=== PATIENT | male | born 1950 | race Caucasian/White ===

== ENCOUNTER → 2016-08-20 | Outpatient (CLI) | payer MEDICARE, OTHER ==
[2016-08-20 11:26] LABS: HEMATOCRIT 37.6 % (37.9-51.0); HEMOGLOBIN 13.1 g/dL (13.5-17.0); HGB HCT DIFFERENCE 1.7; MEAN CORPUSCULAR HEMOGLOBIN 30.6 pg (27.0-33.4); MEAN CORPUSCULAR HGB CONC 34.9 g/dL (32.0-36.0); MEAN CORPUSCULAR VOLUME 88 fl (80-97); RED BLOOD COUNT 4.28 10^6/uL (4.35-5.55); RED CELL DISTRIBUTION WIDTH 13.1 % (11.5-14.0); WHITE BLOOD COUNT 6.9 10^3/uL (4.0-10.5)
[2016-08-20 11:46] LABS: ALANINE AMINOTRANSFERASE 25 U/L (21-72); ALBUMIN 4.1 g/dL (3.5-5.0); ALKALINE PHOSPHATASE 56 U/L (38-126); ANION GAP 14 (5-19); ASPARTATE AMINO TRANSFERASE 27 U/L (17-59); BILIRUBIN,DIRECT 0.4 mg/dL (0.0-0.4); BILIRUBIN,TOTAL 0.8 mg/dL (0.2-1.3); BLOOD UREA NITROGEN 15 mg/dL (7-20); CALCIUM 8.9 mg/dL (8.4-10.2); CARBON DIOXIDE 26 mmol/L (22-30); CHLORIDE 103 mmol/L (98-107); CHOLESTEROL 128.68 mg/dL (0-200); CREATININE RESULT 0.68 mg/dL (0.52-1.25); Direct HDL 44 mg/dL (>40); GLUCOSE 87 mg/dL (75-110); SODIUM 143.4 mmol/L (137-145); TOTAL PROTEIN 6.8 g/dL (6.3-8.2); TRIGLYCERIDES 103 mg/dL (<150)
[2016-08-20 11:57] LABS: DIRECT LDL 68 mg/dL (<100)
[2016-08-22 10:13] LABS: TESTOSTERONE FREE (DIRECT) 0.6 pg/mL (6.6-18.1)
== END ==
LOC: OD 10:09
PROVIDERS: ATTEND Family Medicine
DX: E11.65 Type 2 diabetes mellitus with hyperglycemia (principal); E78.5 Hyperlipidemia, unspecified; E66.01 Morbid (severe) obesity due to excess calories; Z68.41 Body mass index [BMI] 40.0-44.9, adult; I25.10 Atherosclerotic heart disease of native coronary artery without angina pectoris; G89.29 Other chronic pain; M51.37 Other intervertebral disc degeneration, lumbosacral region; M72.0 Palmar fascial fibromatosis [Dupuytren]
CPT/HCPCS: 36415; 80053; 80061; 83036; 84402; 84403; 85027

== ENCOUNTER 2016-11-07 19:31 | Emergency (ER) | payer MEDICARE, OTHER ==
[2016-11-07] MEDS ORDERED: HYDROMORPHONE HCL INJ/PF 2 MG/ML AMPULE IM ONE ×2 (21:09→22:50)
--- NOTE | 2016-11-07 21:10 | ER Document Report ---
HPI - HPI Patient complains to provider of: Back pain Onset: Yesterday Onset/Duration: Worse Quality of pain: Sharp Pain Level: 5 Context: Patient reports a history of chronic low back pain for which he takes oxycodone 20 mg 2 tablets 4 times a day. Patient states that occasionally he will have flareups which require him to cover breakthrough pain with Dilaudid. Patient states he ran out of his extra Dilaudid at home. Patient is uncertain of his specific diagnosis regarding his chronic back pain but states that multiple spinal injections from pain management did not help his symptoms. Patient denies any new injury. Patient denies any paresthesia or radiculopathy. Patient denies any urinary retention or incontinence. Patient denies any fever. Patient states pain is typical flares that he has had in the past. Associated Symptoms: Other - Back pain. denies: Fever Exacerbated by: Movement Relieved by: Denies Similar symptoms previously: Yes Recently seen / treated by doctor: No - ROS ROS below otherwise negative: Yes Systems Reviewed and Negative: Yes All other systems reviewed and negative - CONSTITUTIONAL Constitutional: DENIES: Fever - NEURO Neurology: DENIES: Weakness - URINARY Urinary: DENIES: Dysuria, Urgency, Frequency - MUSCULOSKELETAL Musculoskeletal: REPORTS: Extremity pain. DENIES: Back Pain, Neck Pain - DERM Skin Color: Normal Skin Problems: None Past Medical History - General Information source: Patient - Social History Smoking Status: Never Smoker Frequency of alcohol use: None Drug Abuse: None Occupation: none Lives with: Spouse/Significant other Family History: Reviewed & Not Pertinent - Past Medical History Cardiac Medical History: Reports: Hx Heart Attack Endocrine Medical History: Reports: Hx Diabetes Mellitus Type 2 Renal/ Medical History: Denies: Hx Peritoneal Dialysis Musculoskeltal Medical History: Reports Other - chronic back pain Past Surgical History: Reports: Hx Cardiac Surgery - bypass, Hx Coronary Artery Bypass Graft - robotic, Hx Orthopedic Surgery - Bilateral knees Vertical Provider Document - CONSTITUTIONAL Agree With Documented VS: Yes Exam Limitations: No Limitations General Appearance: WD/WN, No Apparent Distress Notes: PHYSICAL EXAMINATION: GENERAL: Well-appearing, well-nourished and in no acute distress. HEAD: Atraumatic, normocephalic. EYES: sclera clear, anicteric, conjunctiva are normal. ENT: nares patent, Moist mucous membranes. NECK: Normal range of motion, supple no lymphadenopathy LUNGS: respirations unlabored HEART: Regular rate and rhythm without murmurs EXTREMITIES: Normal range of motion, no pitting or edema. No cyanosis. Gait normal, pt ambulates without difficulty BACK: lower lumbar midline tenderness, no deformities or step-offs. No CVA tenderness. NEUROLOGICAL: Cranial nerves grossly intact. Normal speech, normal gait. No saddle anesthesia. no foot drop PSYCH: Normal mood, normal affect. SKIN: Warm, Dry, normal turgor, no rashes or lesions noted. - INFECTION CONTROL TRAVEL OUTSIDE OF THE [place] IN LAST 30 DAYS: No - RESPIRATORY O2 Sat by Pulse Oximetry: 95 Course - Re-evaluation Re-evalutation: 11/07/16 22:50 Patient denies any pain relief after her first shot, patient is requesting additional pain medication. 11/08/16 00:[address] valerio regarding pt presentation and pt intent to leave and drive self home after he told provider and nursing staff that he would have his daughter drive him home. Dr valerio does not recommend discharging pt home on any pain medications, rather having pt take his home medication as prescribe - Vital Signs Vital signs: Temp Pulse Resp BP Pulse Ox 97.6 F 70 20 146/83 H 95 11/07/16 20:03 11/07/16 20:03 11/07/16 20:03 11/07/16 20:03 11/07/16 20:03 Discharge - Discharge Clinical Impression: Chronic back pain Qualifiers: Back pain location: low back pain Back pain laterality: midline Sciatica presence: without sciatica Qualified Code(s): M54.5 - Low back pain Condition: Stable Disposition: HOME, SELF-CARE Instructions: Pain Medication Injection ([facility]), Chronic Back Pain ([facility]), Ice Packs ([facility]), Warm Packs ([facility]) Additional Instructions: follow up with your primary care provider for a recheck take your pain medications that you have at home as prescribed use over the counter lidocaine patches as directed Referrals: [facility] [Provider Group] - Follow up as needed
[2016-11-07] MEDS ORDERED: LIDOCAINE 5% (700 MG) TRANSDERMAL ADH..PATCH TP ONE (22:50)
[2016-11-08 00:27] VITALS: BP 146/86
== END 2016-11-08 00:27 | disposition home or self-care (01) ==
LOC: ER 19:31
DX: M54.5 Low back pain (principal); M54.9 Dorsalgia, unspecified; Z79.899 Other long term (current) drug therapy
CPT/HCPCS: 99283; 96372; J1170

== ENCOUNTER 2016-11-22 20:01 | Inpatient (IN) | payer MEDICARE, OTHER ==
[2016-11-22] MEDS ORDERED: ACETAMINOPHEN 325 MG TABLET PO ONE (20:15)
[2016-11-22] MEDS ORDERED: CEFTRIAXONE 1 GM/D5W RTU 50 ML IV ONE (20:15)
--- NOTE | 2016-11-22 20:31 | RADIOLOGY REPORT (SQ) ---
EXAM DESCRIPTION: CHEST SINGLE VIEW COMPLETED DATE/TIME: 11/22/2016 8:21 pm REASON FOR STUDY: stroke alert COMPARISON: None. EXAM PARAMETERS: NUMBER OF VIEWS: One view. TECHNIQUE: Single frontal radiographic view of the chest acquired. RADIATION DOSE: NA LIMITATIONS: None. FINDINGS: LUNGS AND PLEURA: No focal opacities, masses or pneumothorax. No pleural effusion. MEDIASTINUM AND HILAR STRUCTURES: No masses. Contour normal. HEART AND VASCULAR STRUCTURES: Heart normal in size. Normal vasculature. BONES: No acute findings. HARDWARE: None in the chest. OTHER: No other significant finding. IMPRESSION: NO ACUTE RADIOGRAPHIC FINDING IN THE CHEST. TECHNICAL DOCUMENTATION: JOB ID: [id number]
--- NOTE | 2016-11-22 20:33 | RADIOLOGY REPORT (SQ) ---
EXAM DESCRIPTION: CT HEAD WITHOUT COMPLETED DATE/TIME: 11/22/2016 8:22 pm REASON FOR STUDY: stroke alert COMPARISON: None. TECHNIQUE: Axial images acquired through the brain without intravenous contrast. Images reviewed wi th bone, brain and subdural windows. Images stored on PACS. All CT scanners at this facility use dose modulation, iterative reconstruction, and/or weight based d osing when appropriate to reduce radiation dose to as low as reasonably achievable (ALARA). [facility]: Dose Right [facility]: CareDose [facility]: Dose Right [facility]: Teradose 4D [facility]: One4All RADIATION DOSE: mGy. LIMITATIONS: None. FINDINGS: VENTRICLES: Normal size and contour. CEREBRUM: No masses. No hemorrhage. No midline shift. Normal randolph/white matter differentiation. N o evidence for acute infarction. CEREBELLUM: No masses. No hemorrhage. No alteration of density. No evidence for acute infarction. EXTRAAXIAL SPACES: No fluid collections. No masses. ORBITS AND GLOBE: No intra- or extraconal masses. Normal contour of globe without masses. CALVARIUM: No fracture. PARANASAL SINUSES: No fluid or mucosal thickening. SOFT TISSUES: No mass or hematoma. OTHER: No other significant finding. IMPRESSION: NORMAL BRAIN CT WITHOUT CONTRAST. TECHNICAL DOCUMENTATION: JOB ID: [id number] Quality ID # [id number]: Final reports with documentation of one or more dose reduction techniques (e.g., Au tomated exposure control, adjustment of the mA and/or kV according to patient size, use of iterative reconstruction technique) 2010 [employer]- All Rights Reserved
--- NOTE | 2016-11-22 20:53 | ER Document Report ---
ED General - General Chief Complaint: Altered Mental Status Stated Complaint: VOMITING,ALTERED MENTAL STATUS Time Seen by Provider: 11/22/16 20:14 Mode of Arrival: Ambulatory Information source: Patient Notes: 66-year-old male presents with complaints of fevers chills confusion shortness of breath of 2 hour duration. Patient denies any pain anywhere TRAVEL OUTSIDE OF THE [place] IN LAST 30 DAYS: No - HPI Onset: Just prior to arrival Onset/Duration: Sudden Quality of pain: Achy Severity: Mild Pain Level: Denies Associated symptoms: Fever, Shortness of breath, Weakness Exacerbated by: Denies Relieved by: Denies Similar symptoms previously: No Recently seen / treated by doctor: No - Related Data Allergies/Adverse Reactions: No Known Allergies Allergy (Verified 11/22/16 20:06) Past Medical History - Social History Smoking Status: Never Smoker Cigarette use (# per day): No Chew tobacco use (# tins/day): No Smoking Education Provided: No Family History: Reviewed & Not Pertinent - Past Medical History Cardiac Medical History: Reports: Hx Heart Attack Endocrine Medical History: Reports: Hx Diabetes Mellitus Type 2 Renal/ Medical History: Denies: Hx Peritoneal Dialysis Past Surgical History: Reports: Hx Cardiac Surgery - bypass, Hx Coronary Artery Bypass Graft - robotic, Hx Orthopedic Surgery - Bilateral knees Review of Systems - Review of Systems Notes: REVIEW OF SYSTEMS: CONSTITUTIONAL : Admits to fevers and EENT: Denies eye, ear, throat, or mouth pain or symptoms. Denies nasal or sinus congestion or discharge. Denies throat, tongue, or mouth swelling or difficulty swallowing. CARDIOVASCULAR: Denies chest pain. Denies palpitations or racing or irregular heart beat. Denies ankle edema. RESPIRATORY: Shortness of breath GASTROINTESTINAL: Denies abdominal pain or distention. Denies nausea, vomiting , or diarrhea. Denies blood in vomitus, stools, or per rectum. Denies black, tarry stools. Denies constipation. GENITOURINARY: Denies difficulty urinating, painful urination, burning, frequency, blood in urine, or discharge. MUSCULOSKELETAL: Denies back or neck pain or stiffness. Denies joint pain or swelling. SKIN: Denies rash, lesions or sores. HEMATOLOGIC : Denies easy bruising or bleeding. LYMPHATIC: Denies swollen, enlarged glands. NEUROLOGICAL: 2 confusion PSYCHIATRIC: Denies anxiety or stress. Denies depression, suicidal ideation, or homicidal ideation. ALL OTHER SYSTEMS REVIEWED AND NEGATIVE. Dictation was performed using [employer] voice recognition software PHYSICAL EXAMINATION: GENERAL: Well-appearing, well-nourished and in no acute distress. Patient currently on 3 L nasal cannula satting 92% HEAD: Atraumatic, normocephalic. EYES: Pupils equal round and reactive to light, extraocular movements intact, sclera anicteric, conjunctiva are normal. ENT: Nares patent, oropharynx clear without exudates. Moist mucous membranes. NECK: Normal range of motion, supple without lymphadenopathy LUNGS: Tachypnea HEART: Tachycardic ABDOMEN: Soft, nontender, nondistended abdomen. No guarding, no rebound. No masses appreciated. Musculoskeletal: Normal range of motion, no pitting or edema. No cyanosis. NEUROLOGICAL: Cranial nerves grossly intact. Normal speech, normal gait. Normal sensory, motor exams PSYCH: Normal mood, normal affect. SKIN: Warm, Dry, normal turgor, no rashes or lesions noted. Physical Exam - Vital signs Vitals: Temp Pulse Resp BP Pulse Ox 100.6 F H 116 H 16 151/77 H 90 L 11/22/16 20:07 11/22/16 20:07 11/22/16 20:07 11/22/16 20:07 11/22/16 20:07 Course - Re-evaluation Re-evalutation: 11/22/16 20:52 Does become slightly confused during our conversation, he is on oxygen at this time, given that he has fevers chills and hypoxemia I believe he has presumed pneumonia. He is tachycardic tachypneic 11/22/16 20:53 - Vital Signs Vital signs: Temp Pulse Resp BP Pulse Ox 100.6 F H 116 H 19 151/77 H 92 11/22/16 20:07 11/22/16 20:59 11/22/16 21:00 11/22/16 20:59 11/22/16 21:00 - Laboratory Result Diagrams: 11/22/16 20:40 11/22/16 20:40 Laboratory results interpreted by me: 11/22/16 11/22/16 11/22/16 20:29 20:40 20:40 Seg Neutrophils % 88.4 H Lymphocytes % 6.7 L Glucose 212 H POC Glucose 196 H Lactic Acid Total Bilirubin 2.9 H Direct Bilirubin 2.1 H AST 381 H ALT 156 H Urine Glucose (UA) 11/22/16 11/22/16 20:40 20:45 Seg Neutrophils % Lymphocytes % Glucose POC Glucose Lactic Acid 3.1 H Total Bilirubin Direct Bilirubin AST ALT Urine Glucose (UA) >=500 H Critical Care Note - Critical Care Note Total time excluding time spent on procedures (mins): 34 Comments: 34 minutes of critical care time spent in direct contact evaluating and reevaluating the patient, treating symptoms, reviewing labs and studies and speaking with family and consultants excluding any procedures Discharge - Discharge Clinical Impression: Sepsis Qualifiers: Sepsis type: sepsis due to unspecified organism Qualified Code(s): A41.9 - Sepsis, unspecified organism Pneumonia Qualifiers: Pneumonia type: due to unspecified organism Laterality: unspecified laterality Lung location: unspecified part of lung Qualified Code(s): J18.9 - Pneumonia, unspecified organism Condition: Stable Disposition: ADMITTED INPATIENT Admitting Provider: Hospitalist Unit Admitted: Telemetry
[2016-11-22 21:08] LABS: ABSOLUTE LYMPHOCYTES (AUTO) 0.6 10^3/uL (0.5-4.7); ABSOLUTE MONOCYTES (AUTO) 0.3 10^3/uL (0.1-1.4); ABSOLUTE NEUT (AUTO) 7.5 10^3/uL (1.7-8.2); BASOPHILS % (AUTO) 0.5 % (0-2); EOSINOPHILS % (AUTO) 0.6 % (0-6); HEMATOCRIT 45.4 % (37.9-51.0); HEMOGLOBIN 15.2 g/dL (13.5-17.0); HGB HCT DIFFERENCE 0.2; LYMPHOCYTES % (AUTO) 6.7 % (13-45); MEAN CORPUSCULAR HEMOGLOBIN 30.3 pg (27.0-33.4); MEAN CORPUSCULAR HGB CONC 33.6 g/dL (32.0-36.0); MEAN CORPUSCULAR VOLUME 90 fl (80-97); MONOCYTES % (AUTO) 3.8 % (3-13); RED BLOOD COUNT 5.04 10^6/uL (4.35-5.55); RED CELL DISTRIBUTION WIDTH 13.5 % (11.5-14.0); SEGMENTED NEUTROPHILS % (AUTO) 88.4 % (42-78); WHITE BLOOD COUNT 8.4 10^3/uL (4.0-10.5)
[2016-11-22 21:12] LABS: VENOUS BLOOD BASE EXCESS -0.6 mmol/L; VENOUS BLOOD HCO3 24.6 mmol/L (20-32); VENOUS BLOOD PCO2 42.4 mmHg (35-63); VENOUS BLOOD PH 7.38 (7.30-7.42)
[2016-11-22 21:29] LABS: APPEARANCE,URINE SLIGHTLY-CLOUDY; BILIRUBIN,URINE NEGATIVE (NEGATIVE); GLUCOSE, URINE >=500 mg/dL (NEGATIVE); KETONES,URINE NEGATIVE (NEGATIVE); LEUKOCYTE ESTERASE,URINE NEGATIVE (NEGATIVE); NITRITE,URINE NEGATIVE (NEGATIVE); PROTEIN,URINE NEGATIVE (NEGATIVE); URINE SPECIFIC GRAVITY 1.033; UROBILINOGEN,URINE NEGATIVE mg/dL (<2.0)
[2016-11-22 21:33] LABS: ALANINE AMINOTRANSFERASE 156 U/L (21-72); ALBUMIN 4.6 g/dL (3.5-5.0); ALKALINE PHOSPHATASE 123 U/L (38-126); ANION GAP 17 (5-19); ASPARTATE AMINO TRANSFERASE 381 U/L (17-59); BILIRUBIN,DIRECT 2.1 mg/dL (0.0-0.4); BILIRUBIN,TOTAL 2.9 mg/dL (0.2-1.3); BLOOD UREA NITROGEN 13 mg/dL (7-20); CALCIUM 9.5 mg/dL (8.4-10.2); CARBON DIOXIDE 24 mmol/L (22-30); CHLORIDE 99 mmol/L (98-107); CREATININE RESULT 0.76 mg/dL (0.52-1.25); GLUCOSE 212 mg/dL (75-110); POTASSIUM 3.7 mmol/L (3.6-5.0); PROTHROMBIN TIME 13.1 SEC (11.4-15.4); SODIUM 139.8 mmol/L (137-145)
[2016-11-22] MEDS ORDERED: OXYCODONE HCL SR 10 MG TABLET PO ONE (21:39)
[2016-11-22 21:47] LABS: RBC,URINE RARE /HPF
--- NOTE | 2016-11-22 22:16 | EKG REPORT ---
SEVERITY:- ABNORMAL ECG - SINUS TACHYCARDIA LEFT AXIS DEVIATION BORDERLINE R WAVE PROGRESSION, ANTERIOR LEADS NONSPECIFIC T ABNORMALITIES, ANT-LAT LEADS : Confirmed by: Almita Tavarez 22-Nov-2016 22:15:27
[2016-11-22] MEDS ORDERED: DEXTROSE 40% GEL 15 GM TUBE PO PRN ×2 (22:21)
[2016-11-22] MEDS ORDERED: INSULIN LISPRO 100 UNIT/ML 3 ML VIAL SUBCUT PRN (22:21)
[2016-11-22] MEDS ORDERED: DEXTROSE 50%-WATER 25 GM/50 ML DISP.SYRIN IV PRN ×2 (22:21)
[2016-11-22] MEDS ORDERED: GLUCAGON,HUMAN RECOMB 1 MG INJ IM PRN (22:21)
[2016-11-22] MEDS ORDERED: INSULIN GLARGINE,HUM.REC.ANLOG 1,000 UNIT/10 ML UNIT SUBCUT ONE (22:45)
[2016-11-22] MEDS ORDERED: LEVOFLOXACIN 750 MG/D5W RTU 750 MG/150 ML RTUPB IV ONE (23:00)
[2016-11-23] MEDS ORDERED: LEVOFLOXACIN 750 MG/D5W RTU 750 MG/150 ML RTUPB IV ONE (00:51)
[2016-11-23] MEDS ORDERED: LACTULOSE SYRUP 20 GM/30 ML UDCUP PO ONE (00:52)
[2016-11-23] MEDS ORDERED: METRONIDAZOLE 500 MG TABLET PO ONE (01:00)
[2016-11-23] MEDS ORDERED: OXYCODONE HCL IR 5 MG TABLET PO ONE (01:00)
[2016-11-23] MEDS: IPRATROPIUM/ALBUTEROL 0.5-2.5 MG/3 ML AMPUL NEB SCH ×2 (02:28→07:59)
--- NOTE | 2016-11-23 02:44 | RADIOLOGY REPORT (SQ) ---
EXAM DESCRIPTION: ABDOMEN 2 VIEWS COMPLETED DATE/TIME: 11/23/2016 2:18 am REASON FOR STUDY: LLQ pain and fever COMPARISON: None. NUMBER OF VIEWS: Two views. TECHNIQUE: Supine and erect/decubitus radiographic images of the abdomen acquired. LIMITATIONS: None. FINDINGS: FREE AIR: None. LUNG BASES: Clear. BOWEL GAS PATTERN: Nonobstructive pattern. No dilated loops. Moderate amount of stool in the colon. CALCIFICATIONS: No suspicious calcifications. SOFT TISSUES: No gross mass or suggestion of organomegaly. HARDWARE: None in the abdomen. BONES: Degenerative changes in the spine. IMPRESSION: Nonobstructive bowel gas pattern. Moderate amount of stool in the colon. TECHNICAL DOCUMENTATION: JOB ID: [id number] [place]-[employer] 2010 [employer]- All Rights Reserved
--- NOTE | 2016-11-23 03:56 | PDOC H&P ---
History of Present Illness Admission Date/PCP: 11/22/16 22:21 Patient complains of: Abdominal pain History of Present Illness: CAYETANO SCHMITT is a 66 year old male with a past medical history of coronary artery disease insulin-dependent diabetes, hypertension, dyslipidemia, GERD and opiate dependent chronic low back pain with chronic constipation. Who presents to the emergency room with abdominal pain shortness of breath found to have O2 saturations of 88% and initially felt to have bronchitis versus early pneumonia. He denies sinus or facial pain, sore throat wheeze or cough. He is found to have abnormal LFTs and elevation of his lactic acid he is referred to the hospital for admission. The patient denies recent change in medication but has been significantly constipated for at least a week. Past Medical History Cardiac Medical History: Reports: Myocardial Infarction Pulmonary Medical History: Reports: Chronic Obstructive Pulmonary Disease (COPD) Endocrine Medical History: Reports: Diabetes Mellitus Type 2 GI Medical History: Reports: Gastroesophageal Reflux Disease, Other - Chronic constipation Musculoskeltal Medical History: Reports: Other - Chronic low back pain opiate dependence Psychiatric Medical History: Denies: Depression Past Surgical History Past Surgical History: Reports: Coronary Artery Bypass Graft - robotic, Orthopedic Surgery - Bilateral knees Social History Information Source: Patient, [facility] Records Smoking Status: Never Smoker Frequency of Alcohol Use: None Hx Recreational Drug Use: No Drugs: None Hx Prescription Drug Abuse: No Family History Family History: CAD, COPD, Hypertension Parental Family History Reviewed: Yes Children Family History Reviewed: Yes Sibling(s) Family History Reviewed.: Yes Medication/Allergy Home Medications: Aspirin [Aspirin 81 mg Chewable Tablet] 81 mg PO DAILY 01/11/16 Atorvastatin Calcium [Lipitor 10 mg Tablet] 10 mg PO DAILY 01/11/16 Canagliflozin/Metformin HCl [Invokamet 150-1,000 mg Tablet] 150 mg PO Q12 Clopidogrel Bisulfate [Plavix 75 mg Tablet] 75 mg PO DAILY 01/11/16 Glimepiride 1 mg PO Q12 01/11/16 Hydromorphone HCl 2 mg PO PRN PRN 01/11/16 Insulin Detemir [Levemir Flextouch] 80 units DAILY 01/11/16 Isosorbide Mononitrate [Isosorbide Mononitrate ER] 30 mg PO QPM 01/11/16 Meloxicam [Mobic 15 mg Tablet] 15 mg PO DAILY 01/11/16 Metoprolol Succinate 25 mg PO DAILY 01/11/16 Oxycodone HCl [Oxycodone HCl 10 MG Tablet] 10 mg PO Q6 01/11/16 Oxycodone HCl [Oxycontin Sr 10 mg Tablet] 30 mg PO Q6 01/11/16 Pantoprazole Sodium [Protonix] 40 mg PO DAILY 01/11/16 Allergies/Adverse Reactions: No Known Allergies Allergy (Verified 11/22/16 20:06) Review of Systems Constitutional: PRESENT: as per HPI, anorexia. ABSENT: chills, fatigue, weakness Eyes: ABSENT: visual disturbances Ears: ABSENT: hearing changes Cardiovascular: ABSENT: chest pain, dyspnea on exertion, edema, orthropnea, palpitations Respiratory: ABSENT: cough, hemoptysis Gastrointestinal: PRESENT: abdominal pain, bloating, constipation, heartburn. ABSENT: coffee ground emesis, diarrhea, dysphagia Genitourinary: ABSENT: dysuria, hematuria Musculoskeletal: ABSENT: joint swelling Integumentary: ABSENT: rash, wounds Neurological: ABSENT: abnormal gait, abnormal speech, confusion, dizziness, focal weakness, syncope Psychiatric: ABSENT: anxiety, depression, homidical ideation, suicidal ideation Endocrine: ABSENT: cold intolerance, heat intolerance, polydipsia, polyuria Hematologic/Lymphatic: ABSENT: easy bleeding, easy bruising Physical Exam Vital Signs: Temp Pulse Resp BP Pulse Ox 99.2 F 96 18 126/75 H 96 11/22/16 23:16 11/23/16 02:30 11/23/16 02:30 11/22/16 23:16 11/22/16 23:16 Intake & Output 11/21/16 11/22/16 11/23/16 11:59 11:59 11:59 Weight 127.6 kg General appearance: PRESENT: cooperative, mild distress, morbidly obese Head exam: PRESENT: atraumatic Eye exam: PRESENT: conjunctiva pink, EOMI, PERRLA. ABSENT: scleral icterus Ear exam: PRESENT: normal external ear exam Mouth exam: PRESENT: moist, tongue midline Neck exam: ABSENT: carotid bruit, JVD, lymphadenopathy, thyromegaly Respiratory exam: PRESENT: clear to auscultation debra. ABSENT: rales, rhonchi, wheezes Cardiovascular exam: PRESENT: RRR. ABSENT: diastolic murmur, rubs, systolic murmur Pulses: PRESENT: normal dorsalis pedis pul Vascular exam: PRESENT: normal capillary refill GI/Abdominal exam: PRESENT: distended, firm, hypoactive bowel sounds, tenderness - Of the left lower quadrant. ABSENT: guarding, Jacinto's sign, normal bowel sounds Rectal exam: PRESENT: deferred Extremities exam: PRESENT: full ROM. ABSENT: calf tenderness, clubbing, pedal edema Neurological exam: PRESENT: alert, awake, oriented to person, oriented to place , oriented to time, oriented to situation, CN II-XII grossly intact. ABSENT: motor sensory deficit Psychiatric exam: PRESENT: appropriate affect, normal mood. ABSENT: homicidal ideation, suicidal ideation Skin exam: PRESENT: dry, intact, warm. ABSENT: cyanosis, rash Results Laboratory Results: 11/23/16 01:14 Lactic Acid 1.8 Impressions: Chest X-Ray 11/22/16 00:00 IMPRESSION: NO ACUTE RADIOGRAPHIC FINDING IN THE CHEST. Head CT 11/22/16 00:00 IMPRESSION: NORMAL BRAIN CT WITHOUT CONTRAST. Abdomen X-Ray 11/23/16 00:51 IMPRESSION: Nonobstructive bowel gas pattern. Moderate amount of stool in the colon. Assessment & Plan - Diagnosis (1) Abdominal pain Is this a current diagnosis for this admission?: YesPlan: Secondary to severe constipation and likely diverticulitis comp gated by past medical history. Empiric antibiotics, symptomatic management, enema and lactulose reevaluate CBC (2) Diverticulitis Is this a current diagnosis for this admission?: YesPlan: N.p.o., lactulose, enema, symptomatic management Flagyl and Cipro reevaluate CBC (3) Constipation Is this a current diagnosis for this admission?: YesPlan: Bowel regiment for opiate dependence. (4) Abnormal LFTs Is this a current diagnosis for this admission?: YesPlan: Unclear chronicity will obtain hepatitis profile - Time Time Spent: 50 to 70 Minutes - Inpatient Certification Medical Necessity: Need Close Monitoring Due to Risk of Patient Decompensation
[2016-11-23 05:12] LABS: HEMATOCRIT 43.9 % (37.9-51.0); HEMOGLOBIN 14.5 g/dL (13.5-17.0); HGB HCT DIFFERENCE -0.4; MEAN CORPUSCULAR HEMOGLOBIN 29.9 pg (27.0-33.4); MEAN CORPUSCULAR HGB CONC 32.9 g/dL (32.0-36.0); MEAN CORPUSCULAR VOLUME 91 fl (80-97); RED BLOOD COUNT 4.84 10^6/uL (4.35-5.55); RED CELL DISTRIBUTION WIDTH 13.3 % (11.5-14.0); WHITE BLOOD COUNT 13.1 10^3/uL (4.0-10.5)
[2016-11-23 05:21] LABS: ANION GAP 17 (5-19); BLOOD UREA NITROGEN 13 mg/dL (7-20); CALCIUM 9.1 mg/dL (8.4-10.2); CARBON DIOXIDE 25 mmol/L (22-30); CHLORIDE 98 mmol/L (98-107); CREATININE RESULT 0.82 mg/dL (0.52-1.25); GLUCOSE 205 mg/dL (75-110); POTASSIUM 4.1 mmol/L (3.6-5.0); SODIUM 140.3 mmol/L (137-145)
[2016-11-23 05:45] LABS: BASOPHILS % (MANUAL) 0 % (0-2); EOSINOPHILS % (MANUAL) 0 % (0-6); LYMPHOCYTES % (MANUAL) 1 % (13-45); TOTAL CELLS COUNTED 100
[2016-11-23 05:47] LABS: BAND NEUTROPHILS % (MANUAL) 13 % (3-5); OVALOCYTES SLIGHT; PLATELET CLUMPS PRESENT; POIKILOCYTOSIS SLIGHT
[2016-11-23] MEDS ORDERED: METRONIDAZOLE 500 MG TABLET PO SCH (06:00)
[2016-11-23] MEDS: HEPARIN SOD (PORCINE) 5,000 UNIT/ML 1 ML SYRINGE SUBCUT SCH ×3 (06:00→22:06)
[2016-11-23] MEDS: LANSOPRAZOLE 30 MG TAB.RAP.DR PO SCH (08:32)
[2016-11-23] MEDS: ASPIRIN 81 MG TABLET, CHEWABLE PO SCH (09:08)
[2016-11-23] MEDS: METOPROLOL SUCCINATE 25 MG TAB.SR.24H PO SCH (09:09)
[2016-11-23] MEDS: GUAIFENESIN 600 MG TABLET.SA PO SCH ×2 (09:10→22:06)
[2016-11-23] MEDS ORDERED: OXYCODONE HCL SR 10 MG TABLET PO SCH (10:00)
[2016-11-23] MEDS ORDERED: ATORVASTATIN CALCIUM 10 MG TABLET PO SCH (10:00)
[2016-11-23] MEDS ORDERED: CLOPIDOGREL BISULFATE 75 MG TABLET PO SCH (10:00)
[2016-11-23] MEDS ORDERED: (PENDING PHARMACY ID) (Oxycodone Hcl [Oxycodone Hcl 10 Mg Tablet] 20 MG) PO PRN (11:19)
[2016-11-23] MEDS ORDERED: (PENDING PHARMACY ID) (Temazepam [Temazepam] 30 MG) PO PRN (11:19)
[2016-11-23] MEDS ORDERED: OXYCODONE HCL IR 5 MG TABLET PO PRN (11:29)
[2016-11-23] MEDS ORDERED: KETOROLAC TROMETHAMINE INJ/PF 30 MG/1 ML SDV IV PRN (11:32)
--- NOTE | 2016-11-23 11:32 | Progress Note ---
Provider Note Provider Note: IMANI MONTEIRO Search Criteria: Last Name 'Imani' and First Name 'Keny' and = '' and Request Period = '05/27/16' to '11/23/16' - 1 out of 1 Recipients Selected. Fill Date Product, Str, Form Qty Days Pt ID Prescriber Written RX# N/R* Pharm MED+ ------ ---- --------- --- ------- ----- --------- ------ 11/03/2016 OXYCODONE HCL 20 MG TABLET 180.00 30 [id number] 11/03/2016 [id number] R [id number] 180.0 10/10/2016 TEMAZEPAM 30 MG CAPSULE 30.00 30 [id number] 07/07/2016 [id number] R [id number] 00.0 10/04/2016 OXYCODONE HCL 20 MG TABLET 240.00 40 [id number] 09/05/2016 [id number] R [id number] 180.0 10/04/2016 OXYCODONE HCL 20 MG TABLET 240.00 30 [id number] 09/05/2016 [id number] R [id number] 240.0 09/13/2016 TEMAZEPAM 30 MG CAPSULE 30.00 30 [id number] 07/07/2016 [id number] R [id number] 00.0 08/12/2016 OXYCODONE HCL 10 MG TABLET 150.00 11 [id number] 06/06/2016 [id number] N [id number] 204.6 08/09/2016 OXYCONTIN 30 MG TABLET 120.00 30 [id number] 06/06/2016 [id number] N [id number] 180.0 08/08/2016 TEMAZEPAM 30 MG CAPSULE 30.00 30 [id number] 07/07/2016 [id number] R [id number] 00.0 07/15/2016 OXYCODONE HCL 10 MG TABLET 150.00 19 [id number] 06/06/2016 [id number] N [id number] 118.4 07/15/2016 OXYCONTIN 30 MG TABLET 120.00 30 [id number] 06/06/2016 [id number] N [id number] 180.0 07/07/2016 TEMAZEPAM 30 MG CAPSULE 30.00 30 [id number] 07/07/2016 [id number] N [id number] 00.0 06/18/2016 OXYCODONE HCL 10 MG TABLET 150.00 30 [id number] 06/06/2016 [id number] N [id number] 75.0 06/18/2016 HYDROMORPHONE 2 MG TABLET 12.00 3 [id number] 06/06/2016 [id number] N [id number] 32.0 06/18/2016 OXYCONTIN 30 MG TABLET 120.00 30 [id number] 06/06/2016 [id number] N [id number] 180.0 06/03/2016 TEMAZEPAM 30 MG CAPSULE 30.00 30 [id number] 05/28/2016 [id number] N [id number] 00.0 [id number] LEIGHTON GARCIA JR; [facility], [address] [place] [address], [id number] [id number] DEQUAN RIOS MD; [facility], [address] [place] [address] , [id number] [id number]
--- NOTE | 2016-11-23 12:08 | PROGRESS NOTE E ---
Progress Note NAME: CAYETANO SCHMITT : 1950 AGE: 66Y DATE: 11/23/2016 ROOM: [facility] SUBJECTIVE: The patient is lying in bed. He states he is having a great deal of back pain as well as a headache. He denies any shortness of breath, dizziness, or chest pain. He does admit to some nausea and vomiting, and overall states that he does not feel well. The patient has been afebrile. His blood pressures have been in a good range. The patient does not voice any other concerns at this time. REVIEW OF SYSTEMS: Rest of the review of systems negative. MEDICATIONS: Have been reviewed. PHYSICAL EXAMINATION: GENERAL: The patient is a 66-year-old male who is awake, alert, and oriented to person, place, time, and situation. He is verbal, conversational, and does not appear to be in any acute distress. VITAL SIGNS: Temperature 98.1, pulse 93, respirations 20, blood pressure 144/69, oxygen saturation is 97% on room air. SKIN: Warm and dry. No rash. Not diaphoretic. HEENT: Pupils equal, round, reactive to light and accommodation. Conjunctivae are pink. No JVP. CARDIOVASCULAR: Heart is regular with no murmur or rub. CHEST: Clear, symmetrical, unlabored. ABDOMEN: Mildly distended. No area of focal tenderness. Bowel sounds are present. BACK: No CVA tenderness or sacral edema. EXTREMITIES: No clubbing, cyanosis, or edema. PSYCHIATRIC: Appropriate affect. Pleasant mood. DIAGNOSTICS: Lab values are as follows: Hematology obtained on 11/23/2016: WBCs are 13.1, hemoglobin is 14.5, hematocrit is 43.9, platelet count is 148,000. Chemistry obtained on 11/23/2106: Sodium is 140, potassium 4.1, chloride is 98, carbon dioxide 25, BUN 13, creatinine is 0.82, glucose 205, calcium is 9.1. IMPRESSION AND PLAN: 1. SEPSIS PRESENT ON ADMISSION EVIDENCED BY THE PATIENT'S WHITE COUNT, BANDEMIA, TACHYCARDIA. Uncertain of exact etiology of this but given the patient's elevation in LFTs, will obtain complete abdominal ultrasound and also given his flank pain, will also add lipase. The patient appears to have a positive blood culture of gram negative rods as well. 2. BACTEREMIA. Will continue IV antibiotic coverage for now and will repeat blood cultures in the next 24 hours. 3. ABNORMAL LFTS. This is very acute as the patient's LFTs were normal in July. Will obtain ultrasound and hold hepatotoxic medications for now. 4. DIABETES MELLITUS TYPE 2. Will continue sliding scale coverage. 5. CORONARY ARTERY DISEASE. Will continue the patient's home medications for now. 6. GASTROESOPHAGEAL REFLUX DISEASE. Will continue PPI therapy. 7. CHRONIC BACK PAIN. Will continue home medications. 8. OPIATE DEPENDENCY. Will continue home medications. Will add Toradol for breakthrough pain. DISPOSITION: The patient is a FULL CODE. Pending patient's symptomatology and diagnostic findings, will reevaluate in the a.m. Time spent on this followup including assessment, plan, physical examination, and patient education is 40 minutes. DICTATING PHYSICIAN: JORDIN ROMAN NP [id number] PHY#: [id number] ID: [id number] JOB#: [id number] ACCT: [id number] cc: >
[2016-11-23] MEDS ORDERED: KETOROLAC TROMETHAMINE INJ/PF 30 MG/1 ML SDV IV ONE (12:30)
[2016-11-23] MEDS: AMPICILLIN SODIUM/SULBACTAM NA 3 GM in NORMAL SALINE 100 ML IV SCH ×2 (16:18→20:50)
[2016-11-23] MEDS: ISOSORBIDE MONONITRATE 30 MG TAB.ER.24H PO SCH (18:12)
[2016-11-23] MEDS: OXYCODONE HCL IR 5 MG TABLET PO PRN (18:24)
--- NOTE | 2016-11-23 18:36 | RADIOLOGY REPORT (SQ) ---
EXAM DESCRIPTION: U/S ABDOMEN COMPLETE W/O DOP COMPLETED DATE/TIME: 11/23/2016 5:42 pm REASON FOR STUDY: Acute elevated LFTs, infeciton, flank pain COMPARISON: None. TECHNIQUE: Dynamic and static grayscale images acquired of the abdomen and recorded on PACS. Renate duarte selected color Doppler and spectral images recorded. LIMITATIONS: Study limited due to acoustical interference from fat or from air in the bowel. FINDINGS: PANCREAS: Poorly seen secondary to acoustical interference from fat or from air in the bow el. No visualized masses. Duct normal caliber as seen. LIVER: Echotexture is coarse with increased echogenicity consistent with fatty infiltration. LIVER VASCULATURE: Normal directional flow of the main portal vein and hepatic veins. GALLBLADDER: Sludge. No stones. Normal wall thickness. No pericholecystic fluid. ULTRASOUND-DETECTED SHI'S SIGN: Negative. INTRAHEPATIC DUCTS AND COMMON DUCT: CBD and intrahepatic ducts normal caliber. No filling defects. INFERIOR VENA CAVA: Normal flow. AORTA: No aneurysm. RIGHT KIDNEY: Normal size. Normal echogenicity. No solid or suspicious masses. No hydronephrosis. No calcifications. LEFT KIDNEY: Normal size. Normal echogenicity. No solid or suspicious masses. No hydronephrosis. No calcifications. SPLEEN:13 cm. No masses. PERITONEAL AND PLEURAL SPACES: No ascites or effusions. OTHER: No other significant finding. IMPRESSION: No acute findings. Borderline splenomegaly. No ascites. TECHNICAL DOCUMENTATION: JOB ID: [id number]- All Rights Reserved
[2016-11-23] MEDS: KETOROLAC TROMETHAMINE INJ/PF 30 MG/1 ML SDV IV PRN (20:51)
[2016-11-23] MEDS ORDERED: INSULIN GLARGINE,HUM.REC.ANLOG 1,000 UNIT/10 ML UNIT SUBCUT SCH (22:00)
[2016-11-23] MEDS ORDERED: LEVOFLOXACIN 750 MG/D5W RTU 750 MG/150 ML RTUPB IV SCH (22:00)
[2016-11-23] MEDS ORDERED: INSULIN GLARGINE,HUM.REC.ANLOG 1,000 UNIT/10 ML UNIT SUBCUT ONE (22:29)
[2016-11-23] MEDS: INSULIN GLARGINE,HUM.REC.ANLOG 300 UNIT/3 ML INSULN.PEN SUBCUT SCH (22:38)
[2016-11-23] MEDS: TEMAZEPAM 15 MG CAPSULE PO PRN (23:28)
[2016-11-24] MEDS: AMPICILLIN SODIUM/SULBACTAM NA 3 GM in NORMAL SALINE 100 ML IV SCH ×2 (03:34→08:26)
[2016-11-24] MEDS: HEPARIN SOD (PORCINE) 5,000 UNIT/ML 1 ML SYRINGE SUBCUT SCH (06:10)
[2016-11-24] MEDS ORDERED: LACTULOSE SYRUP 20 GM/30 ML UDCUP PO ONE (06:45)
[2016-11-24] MEDS ORDERED: ONDANSETRON HCL INJ/PF 4 MG/2 ML SDV IV ONE (06:45)
[2016-11-24] MEDS: KETOROLAC TROMETHAMINE INJ/PF 30 MG/1 ML SDV IV PRN (06:46)
[2016-11-24 07:11] LABS: ABSOLUTE EOSINOPHILS # (AUTO) 0.1 10^3/uL (0.0-0.6); ABSOLUTE LYMPHOCYTES (AUTO) 0.3 10^3/uL (0.5-4.7); ABSOLUTE MONOCYTES (AUTO) 0.4 10^3/uL (0.1-1.4); ABSOLUTE NEUT (AUTO) 5.1 10^3/uL (1.7-8.2); BASOPHILS % (AUTO) 0.3 % (0-2); HEMATOCRIT 39.5 % (37.9-51.0); HEMOGLOBIN 13.4 g/dL (13.5-17.0); HGB HCT DIFFERENCE 0.7; LYMPHOCYTES % (AUTO) 5.2 % (13-45); MEAN CORPUSCULAR HEMOGLOBIN 30.1 pg (27.0-33.4); MEAN CORPUSCULAR VOLUME 89 fl (80-97); RED BLOOD COUNT 4.46 10^6/uL (4.35-5.55); RED CELL DISTRIBUTION WIDTH 13.4 % (11.5-14.0); SEGMENTED NEUTROPHILS % (AUTO) 86.5 % (42-78)
[2016-11-24 07:38] LABS: ALANINE AMINOTRANSFERASE 128 U/L (21-72); ALBUMIN 3.4 g/dL (3.5-5.0); ALKALINE PHOSPHATASE 81 U/L (38-126); ANION GAP 12 (5-19); ASPARTATE AMINO TRANSFERASE 132 U/L (17-59); BILIRUBIN,DIRECT 3.5 mg/dL (0.0-0.4); BILIRUBIN,TOTAL 4.5 mg/dL (0.2-1.3); BLOOD UREA NITROGEN 22 mg/dL (7-20); CALCIUM 8.6 mg/dL (8.4-10.2); CARBON DIOXIDE 24 mmol/L (22-30); CHLORIDE 99 mmol/L (98-107); CREATININE RESULT 0.92 mg/dL (0.52-1.25); GLUCOSE 126 mg/dL (75-110); SODIUM 135.1 mmol/L (137-145); TOTAL PROTEIN 6.4 g/dL (6.3-8.2)
[2016-11-24] MEDS: OXYCODONE HCL IR 5 MG TABLET PO PRN ×3 (07:42→22:22)
[2016-11-24] MEDS: LANSOPRAZOLE 30 MG TAB.RAP.DR PO SCH (07:42)
[2016-11-24] MEDS ORDERED: METOPROLOL TARTRATE PF/INJ 5 MG/5 ML SDV IV ONE ×2 (09:11→09:15)
[2016-11-24] MEDS: GUAIFENESIN 600 MG TABLET.SA PO SCH (09:22)
[2016-11-24] MEDS: ASPIRIN 81 MG TABLET, CHEWABLE PO SCH (09:22)
[2016-11-24] MEDS: CLOPIDOGREL BISULFATE 75 MG TABLET PO SCH (09:22)
[2016-11-24] MEDS ORDERED: NORMAL SALINE 1000 ML 1,000 ML IV PRN (09:33)
[2016-11-24] MEDS ORDERED: DILTIAZEM HCL/D5W 125 ML IV PRN (09:56)
--- NOTE | 2016-11-24 11:02 | RADIOLOGY REPORT (SQ) ---
EXAM DESCRIPTION: CT ABD/PELVIS WITH IV ORAL COMPLETED DATE/TIME: 11/24/2016 10:42 am REASON FOR STUDY: Gram negative sepsis, elevated LFT's COMPARISON: CT angio chest 01/11/2016 TECHNIQUE: CT scan of the abdomen and pelvis performed using helical scanning technique with dynamic intravenous contrast injection. No oral contrast. Images reviewed with lung, soft tissue, and bone windows. Reconstructed coronal and sagittal MPR images reviewed. Delayed images for evaluation of the urinary system also acquired. All images stored on PACS. All CT scanners at this facility use dose modulation, iterative reconstruction, and/or weight based d osing when appropriate to reduce radiation dose to as low as reasonably achievable (ALARA). [facility]: Dose Right [facility]: CareDose [facility]: Dose Right [facility]: Teradose 4D [facility]: Lavish Skate CONTRAST TYPE AND DOSE: contrast/concentration: Isovue 370.00 mg/ml; Total Contrast Delivered: 100.0 ml; Total Saline Delivered: 72.0 ml RENAL FUNCTION: Creatinine 0.82 RADIATION DOSE: Up-to-date CT equipment and radiation dose reduction techniques were employed. CTDIv ol: 25.5 - 27.7 mGy. DLP: 2994 mGy-cm.. LIMITATIONS: None. FINDINGS: LOWER CHEST: Calcified granuloma right posterior lung base LIVER: Normal size. No masses or dilated ducts. SPLEEN: Normal size. No focal lesions. PANCREAS: No masses. No significant calcifications. No adjacent inflammation or peripancreatic fluid collections. Pancreatic duct not dilated. GALLBLADDER: Calcified stones without gallbladder wall thickening or pericholecystic fluid. ADRENAL GLANDS: No significant masses or asymmetry. RIGHT KIDNEY AND URETER: No solid masses. No significant calcifications. No hydronephrosis or hyd roureter. LEFT KIDNEY AND URETER: No solid masses. No significant calcifications. No hydronephrosis or hydr oureter. AORTA AND VESSELS: No aneurysm. No dissection. Renal arteries, SMA, celiac without stenosis. RETROPERITONEUM: No retroperitoneal adenopathy, hemorrhage or masses. BOWEL AND PERITONEAL CAVITY: No masses or inflammatory changes. No free fluid or peritoneal masses. APPENDIX: Short segment of normal appendix identified on coronal image 56 PELVIS: No mass or free fluid. Normal bladder. ABDOMINAL WALL: No masses. No hernias. BONES: Degenerative disc changes and facet hypertrophy at L4-5. Transitional anatomy with sacralized L5. OTHER: No other significant finding. IMPRESSION: NO SIGNIFICANT OR ACUTE FINDING IN THE ABDOMEN OR PELVIS ON CT SCAN WITH IV CONTRAST. TECHNICAL DOCUMENTATION: JOB ID: [id number] Quality ID # [id number]: Final reports with documentation of one or more dose reduction techniques (e.g., Au tomated exposure control, adjustment of the mA and/or kV according to patient size, use of iterative reconstruction technique) 2010 [employer]- All Rights Reserved
[2016-11-24] MEDS ORDERED: PANTOPRAZOLE SODIUM 40 MG VIAL IV ONE (11:30)
[2016-11-24] MEDS ORDERED: DILTIAZEM HCL INJ 25 MG/5 ML VIAL IV ONE (11:30)
[2016-11-24 11:35] LABS: APPEARANCE,URINE CLEAR; BILIRUBIN,URINE MODERATE (NEGATIVE); GLUCOSE, URINE 150 mg/dL (NEGATIVE); KETONES,URINE 100 mg/dL (NEGATIVE); NITRITE,URINE NEGATIVE (NEGATIVE); PROTEIN,URINE 100 mg/dL (NEGATIVE); URINE SPECIFIC GRAVITY 1.042
[2016-11-24 11:36] LABS: BACTERIA,URINE TRACE /HPF; LEUKOCYTE ESTERASE,URINE NEGATIVE (NEGATIVE); RBC,URINE 0-1 /HPF; WBC,URINE 0-1 /HPF
[2016-11-24] MEDS: ENOXAPARIN SODIUM INJ 150 MG/1 ML DISP.SYRIN SUBCUT SCH ×2 (12:46→22:20)
[2016-11-24] MEDS: METRONIDAZOLE 500 MG/NS RTU 100 ML IV SCH ×3 (14:25→23:51)
[2016-11-24] MEDS: CIPROFLOXACIN 400 MG/D5W RTU 400 MG/200 ML RTUPB IV SCH (14:26)
--- NOTE | 2016-11-24 15:43 | PROGRESS NOTE E ---
Progress Note NAME: CAYETANO SCHMITT : 1950 AGE: 66Y DATE: 11/24/2016 ROOM: [facility] SUBJECTIVE: The patient is lying in bed. The patient has been seen twice today on rounds. Initially this morning it was noted by the nurse that the patient's heart rate was staying around 150. Upon review of the patient's strips, he did appear to be in atrial fibrillation/atrial flutter at 2:1. The patient was symptomatic for such and was given a bolus dose of Cardizem. With this, the patient did have improvement of his heart rate into the low 100s. However, he did remain in atrial fibrillation. The patient denies any history of irregular heartbeat or atrial fibrillation. The patient denied any nausea, vomiting. No shortness of breath, dizziness. He does admit to some diarrhea but states this is due to the laxatives he took for constipation which is chronic for him. The patient has been afebrile. His blood pressures have been in a good range. He does have good pressure to work with. The patient was transferred to the [facility] for a Cardizem drip, and the patient also underwent a stat CT scan which was essentially unremarkable. The patient does not voice any other concerns at this time. REVIEW OF SYSTEMS: The rest of the review of systems is negative. MEDICATIONS: Medications have been reviewed. OBJECTIVE: GENERAL: The patient is a 66-year-old male who is awake, alert and oriented to person, place, time, and situation. He is verbal, conversational, does not appear to be in any acute distress. VITAL SIGNS: As follows: Temperature is 97.8, pulse 120, respiratory rate 18, blood pressure is 113/72, oxygen saturation 96% on room air. SKIN: Warm and dry. No rash. He is not diaphoretic. HEENT: Pupils equal, round, reactive to light and accommodation. Conjunctiva is pink. NECK: No JVD. CARDIOVASCULAR SYSTEM: Heart is irregularly irregular. There is no murmur or rub. CHEST: Clear, symmetrical, unlabored. ABDOMEN: Soft, nontender, nondistended. BACK: No CVA tenderness, sacral edema. EXTREMITIES: No clubbing, cyanosis, edema. PSYCHIATRIC: Appropriate affect. Pleasant mood. DIAGNOSTICS: Lab values are as follows: Hematology obtained on 11/24/2016; WBCs are 6.0, hemoglobin 13.4, hematocrit is 39.5, platelet count is 111,000. Chemistry obtained on 11/24/2016: Sodium is 135, potassium 4.0, chloride is 99, carbon dioxide 24, BUN 22, creatinine is 0.9, glucose is 126, calcium is 8.6, bilirubin is 4.5, AST 132, ALT is 128, alkaline phosphatase 81, total protein 6.4, albumin 3.4. Blood cultures obtained on 11/22/2016 reveal gram-negative rods. Urine culture obtained on 11/22/2016 reveals no growth. IMPRESSION AND PLAN: 1. GRAM-NEGATIVE OSEAS BACTEREMIA, UNCERTAIN OF THE EXACT ETIOLOGY OF THIS. The patient's CT of the abdomen and pelvis is unremarkable. There is no obvious source. Given the patient's history of chronic constipation and intermittent diarrhea, he does have the suspicion for a diverticular origin. Will continue antibiotic coverage, as the patient's white count has normalized, and follow. 2. SEPSIS SECONDARY TO NUMBER 1. Overall, the patient is improved. 3. ATRIAL FLUTTER. The patient denies any previous history of this. Most likely it was exacerbated by the patient's sepsis process. The patient has been given Cardizem, has been started on a drip, and Cardiology has been consulted. I do appreciate their input with this. 4. ABNORMAL LFTS. This does appear to be acute as these were normal in July. So far, imaging is unremarkable for any abdominal etiology of this. We will continue to hold hepatotoxic medications. This may be due simply to sepsis process. 5. DIABETES MELLITUS TYPE 2. Continue sliding scale coverage. 6. CORONARY ARTERY DISEASE. Will continue the patient's home medications. 7. GASTROESOPHAGEAL REFLUX DISEASE. Will continue PPI therapy. 8. CHRONIC BACK PAIN. Will continue home medication. 9. OPIATE DEPENDENCY. Will continue the patient's home medications. DISPOSITION: The patient is a FULL CODE. Pending patient's symptomatology and diagnostic findings, will re-evaluate in the a.m. Time spent on this followup including assessment, plan, physical examination, patient education, and specialty collaboration is 40 minutes. DICTATING PHYSICIAN: JORDIN ROMAN NP [id number] PHY#: [id number] ID: [id number] JOB#: [id number] ACCT: [id number] cc:JORDIN ROMAN MANUFACTURING DESIGN ENGINEER >
[2016-11-24 17:11] LABS: PATH REVIEW PATHOLOGIST REVIEWED
[2016-11-24] MEDS: ISOSORBIDE MONONITRATE 30 MG TAB.ER.24H PO SCH (18:14)
--- NOTE | 2016-11-24 18:50 | EKG REPORT ---
SEVERITY:- ABNORMAL ECG - A FIB-FLUTTER LEFT AXIS DEVIATION NONSPECIFIC T ABNORMALITIES, ANTERIOR LEADS : Confirmed by: Almita Tavarez 24-Nov-2016 18:50:08
[2016-11-24] MEDS: INSULIN GLARGINE,HUM.REC.ANLOG 300 UNIT/3 ML INSULN.PEN SUBCUT SCH (22:20)
--- NOTE | 2016-11-24 22:54 | CONSULTATION REPORT E ---
Consultation Report NAME: CAYETANO SCHMITT : 1950 AGE: 66Y DATE: 11/24/2016 331 A TO: ELOY DEJESUS M.D. FROM: JAI ISBELL M.D. Requesting Physician REASON FOR CONSULTATION: Patient with new onset of atrial fibrillation with rapid ventricular response. HISTORY OF PRESENT ILLNESS: The patient is a 66-year-old male with known history of coronary artery disease, history of IA, history of coronary artery bypass graft surgery, and history of several stents to the coronary artery and history of insulin-dependent diabetes mellitus type 2, who states that he is on a small dose of MITA inhibitor for his diabetes mellitus and claims no history of hypertension, was admitted on 11/22/2016 with the patient stating that on that day he had uncontrollable rigors and tremors and was shaking all over his body. He states he went to urinate and was confused and stayed there for 15 minutes. Subsequently he also had fever, chills, rigors, the temperature not being recorded. He subsequently started having sharp pains in the epigastric area and came to the emergency room where he seemed to be slightly short of breath, and the O2 saturations were 88%. Initially he was felt to have bronchitis, but the patient denies any chest pain or cough or sputum production. Subsequently the patient had a CT scan which did not show anything except calcified stones in the gallbladder without any evidence of cholecystitis. He was diagnosed as presumed diverticulitis and was treated with antibiotics. This morning, on the telemetry unit he was found to be symptomatic with some fatigue and weakness but without any sensation of palpitations with a heart rate of 155 beats per minute which was atrial fibrillation/flutter with rapid ventricular response. He was given 20 mg of Cardizem and transferred to [facility]. At present the patient seems to be much improved. He denies any chest pain or discomfort. There is no abdominal pain at present. There is no PND, orthopnea, or leg edema. The patient has no clear-cut anginal symptoms. His heart rate is like 108 beats per minute with a blood pressure marginally in the region of 105/65. He is on room air with an O2 saturation of 93%. There is no pedal edema. The patient denies any syncope. There is no prior history of atrial fibrillation. Although per his past medical history, he has a past medical history of palpitations many years ago which were terminated by Valsalva and vagal maneuvers. PAST MEDICAL HISTORY: Positive for: 1. History of myocardial infarction. 2. History of circumflex stent and staged hybrid procedure in the form of robotic minimally invasive direct coronary artery bypass graft surgery with the العلي being placed to the LAD. This was in 2014. He subsequently had a stress test a year later in July/August of 2015 and was advised cardiac catheterization because it showed a large perfusion abnormality laterally and moderate ischemia apically and was thought to have a high risk for recurrent stenosis of the stents or العلي versus *------* lesion, but at that time he was just 2 days from moving into [place], [place], and hence he was advised to get a cardiac catheterization as soon as possible. On 09/24/2015, he had a cardiac catheterization in [facility] wherein he was found to have: The left main was normal. The LAD had a 50% proximal. There was a small D1 with 80% and 50% mid-lesion and 100% mid. The العلي to the LAD was patent to a small distal LAD. The left circumflex gave off a small OM1 with large OM2 with a stent with a 99% in-stent stenosis. The distal vessel is very small with a long 50%. The right coronary artery had a 80% proximal and a 75% mid with a normal PDA and small *------*. He had a 2.5 x 20 mm Euphoria stent placed in the circumflex/obtuse marginal two branch and subsequently also had 2 stents placed to cover the lesion in the right coronary artery. Since then he has not had any anginal symptoms. 3. The patient states in the remote past he has had episodes of palpitations, which his doctor told him that with Valsalva and other vagal maneuvers he used to get rid of them, but they were regular, and this is the first time he is having atrial fibrillation this admission. 4. He denies a history of hypertension. He has no history of sleep apnea. No history of asthma or COPD. 5. There is a history of diabetes mellitus type 2, insulin dependent, without any complications. 6. He has no history of thyroid disease. He has no history of TIA or CVA. No history of anxiety or depression. 7. Abdominal pain as mentioned earlier. There is no prior history of GI bleed at any time. He has a history of GERD. There is no history of peptic ulcer disease. Abdominal pain, as mentioned earlier, is suspected to have diverticulitis, and he also has a gallstone with which he is asymptomatic. There is no history of migraines or seizures. PAST SURGICAL HISTORY: Positive for: 1. Bilateral knee replacements. 2. Prior to that he had left ACL surgery. 3. He also had coronary artery bypass graft surgery. 4. Cardiac catheterization x2 with multiple stent placements. REVIEW OF SYSTEMS: CONSTITUTIONAL: Complains of generalized fatigue and weakness and generalized tremors/rigors with subsequently fever. Abdominal pain. He states that since Thursday the he has been having headaches. There is no prior history of headaches or migraines. No history of head injury. There is no history of amblyopia or diplopia. No history of amaurosis fugax. No history of complications of diabetes mellitus. EARS: No history of hearing loss. No history of tinnitus. No history of recurrent ear infections. NOSE: No history of nosebleeds. No history of hay fever. No history of nasal polyps. MOUTH: No history of altered taste sensation. No history of ulcers in the mouth. No bleeding from the gums. THROAT: No odynophagia or dysphagia. No history of recurrent sore throats. SKIN: No pruritus. No yellowish discoloration of the skin. No history of psoriasis. No history of cancer of the skin. NECK: Denies any C-spine arthritis. No history of goiter. No history of neck pain. LUNGS: No history of asthma or COPD. No history of cough or sputum production. No history of wheezing. No history of pulmonary embolism. No history of sleep apnea. No history of pleuritic chest pain. Note that the patient is a nonsmoker and has never smoked. CARDIAC: Denies history of hypertension. He states that he is on MITA inhibitor for his kidneys since he is a diabetic. He has a history of coronary artery disease, old IA, history of stent placement circumflex and a staged hybrid CABG with a العلي to the LAD, and subsequently he had an abnormal stress test, and in 2015 he had stents placed in the OM2 branch where there was a 99% in-stent restenosis and also had 2 stents placed in the right coronary artery to cover the proximal and middle regions. Since then he has not had any angina. No history of congestive heart failure. No history of PND, orthopnea, or leg edema. This is the first time the patient is in atrial fibrillation. No history of syncope. No history of leg edema. ENDOCRINE: History of diabetes mellitus type 2, insulin dependent. No history of polydipsia or polyuria. No history of heat or cold intolerance. No history of thyroid disease. MUSCULOSKELETAL: History of chronic back pain due to osteoarthritis. The patient is opioid dependent for this. He does not walk much. There is no collagen vascular disease. RENAL: No history of chronic kidney disease. No symptoms of UTI. No history of hematuria, pyuria, or dysuria. METABOLIC: History of hyperlipidemia. History of moderate obesity. No history of gout. GASTROINTESTINAL: History of GERD. No history of fatty food intolerance. No right upper quadrant pain. No history of nausea, vomiting. The patient states he had diarrhea but states that he is usually constipated and takes laxatives, and that is why he has diarrhea. Epigastric sharp pains as mentioned earlier. No history of GI bleed. No history of fatty food intolerance. No history of jaundice. No history of cirrhosis. CENTRAL NERVOUS SYSTEM: No history of TIA or CVA. No history of seizures. History of headaches as mentioned earlier, since Thursday, but no prior history of headaches. The patient states that he was confused for a little while when he had the rigors. This may be because of delirium due to fever which he developed later after the tremors and rigors. No history of sleep apnea. No history of migraines. No seizure disorder. PSYCHIATRIC: No history of anxiety or depression. No history of suicidal ideation. No history of homicidal ideation. VASCULAR: No history of calf or buttock claudication. No history of DVT. HEMATOLOGICAL: No history of bleeding diathesis. No history of clotting disorders. SKIN: There are no skin lesions. There are no petechia or ecchymosis. ALLERGIES: No known allergies. SOCIAL HISTORY: The patient does not smoke. There is no history of EtOH abuse. FAMILY HISTORY: Positive for COPD, hypertension, and coronary artery disease. DISPOSITION: The patient is a FULL CODE. His is his surrogate healthcare decision maker. PHYSICAL EXAMINATION: GENERAL: The patient is moderately obese, at present in no acute distress. He states that he does not feel the palpitations, although when the heart rate was 155, he had a little weakness and some amount of dizziness but no syncope or near syncope. VITAL SIGNS: He is afebrile with a temperature of 98 degrees Fahrenheit. Pulse is 108 beats per minute, irregularly irregular. Blood pressure is 105/65. Respirations are 22 per minute. O2 saturations are 93% on room air. HEAD: Atraumatic/normocephalic. EYES: Pupils are equal, round, regular, reactive to light and accommodation. Extraocular movements are normal. There is no conjunctival pallor. There is no scleral icterus. EARS: Tympanic membranes are intact. External auditory canals are clear. NOSE: There is no deviated nasal septum. There is no inflammation of the nasal mucous membranes. There are no nasal polyps. MOUTH: Mucous membranes of the mouth are moist. Tongue is moist. There are no ulcers. There is no bleeding from the gums. THROAT: There is no redness of the oropharynx. There is no exudate. SKIN: There are no skin rashes. There are no skin lesions. There is no petechia or ecchymosis. NECK: Supple. There is no JVD. Carotids are equal. There is no bruit. There is no lymphadenopathy. There is no goiter. Trachea is central. LUNGS: Clear to auscultation/percussion. There is no chest-wall tenderness. HEART: S1, S2 is heard. S1 is of variable intensity. There is no S3 gallop. There is no S4 gallop. There is a systolic murmur in the left sternal border and the apex. There is no rub. ABDOMEN: Slightly obese, nontender. There is no hepatosplenomegaly. Jacinto's sign is negative. There is no gallbladder tenderness. There is no hepatosplenomegaly. There is no rebound, guarding, or rigidity. Bowel sounds are well heard. EXTREMITIES: Femorals are slightly diminished. There is no femoral bruit. Leg pulses are well felt. There is no DVT or cellulitis. There is no pedal edema. There is no calf tenderness. There is no cyanosis or clubbing. CENTRAL NERVOUS SYSTEM: The patient is conscious, awake, alert, oriented x3, with no focal deficits. PSYCHIATRIC: The patient's judgement and insight are intact. His affect is normal. MEDICATIONS: Include: 1. Aspirin 81 mg p.o. daily. 2. Atorvastatin 10 mg p.o. daily. This has been held due to abnormal liver function tests. 3. Plavix 75 mg p.o. daily. 4. Hypoglycemic precautions with glucose 40% gel, 15 grams p.o. and 30 mg p.o. respectively p.r.n. hypoglycemia. 5. Dextrose 50,000/12.5 grams IV and 25 grams IV p.r.n. hypoglycemia. 6. He did receive Cardizem 20 mg IV. 7. Lovenox 125 mg subcutaneously q.12 h. 8. Glucagon 1 mg IM p.r.n. hypoglycemia. 9. Ciprofloxacin 400 mg IV q.12 h. 10. Metronidazole 500 mg IV q.6 h. 11. Lantus insulin 18 units subcutaneously at bedtime. 12. Accu-Cheks before meals and at bedtime with sliding scale insulin coverage. 13. Isosorbide mononitrate 30 mg p.o. every morning. 14. Ketorolac 30 mg IV q.4 or 6 h. p.r.n. 15. Lansoprazole 30 mg p.o. before breakfast. 16. Metoprolol succinate, that is Toprol XL 25 mg p.o. daily. 17. Oxycodone 40 mg p.o. q.6 h. p.r.n. 18. Pantoprazole 40 mg IV x1. 19. Restoril 30 mg p.o. at bedtime p.r.n. DIAGNOSTIC DATA: His chest x-ray is negative. His abdominal CT is unremarkable except for calcified gallstones without any evidence of cholecystitis. His EKG done on admission on the showed sinus tachycardia, left axis deviation, borderline T-wave progression anterior leads, nonspecific T abnormalities anterolateral leads. His EKG done today shows atrial fibrillation/flutter with a ventricular response of 82 beats per minute, left axis deviation, nonspecific T-wave abnormalities anterior leads. Note that the patient strip's rhythm strips showed that the patient had atrial fibrillation with rapid ventricular response. His white count is 16,000, hemoglobin is 13.5, hematocrit is 39.5, platelet count is 111,000. The patient's sodium is 135, potassium 4.0, chloride is 99, CO2 is 24, the patient's BUN is 22, creatinine 0.92, GFR is greater than 60, his glucose is 126. His calcium is 8.6. His total bilirubin is elevated at 4.5, his direct bilirubin is 3.5, and his AST is elevated at 132, ALT is elevated at 128, and his alkaline phosphatase is 81. His total protein is 6.4. Albumin is 3.4. His hepatitis-A IgM antibody, hepatitis-B antigen, hepatitis-B core IgM antibody, and the hepatitis-C antibody are pending. His Tylenol is less than 10. His ABG showed PT of 13.1, INR is 0.93. IMPRESSION: 1. New-onset atrial fibrillation with rapid ventricular response, at present heart rate seems to be much better with a bolus of IV Cardizem. Would recommend starting the patient on a small dose of Cardizem IV infusion at 2.5 mg per hour. 2. Abdominal pain with fever and rigors, question cause, question diverticulitis. 3. Coronary artery disease, history of IA, history of circumflex stent with a staged hybrid procedure with the patient later having mid-CABG with a العلي to the LAD, subsequently had abnormal stress test and had stents placed and a site of in-stent restenosis in the OM2 branch and also 2 stents in the right coronary artery. 4. Gallstones with no evidence of cholecystitis, and the patient has no symptoms of cholelithiasis. 5. Diabetes mellitus type 2, insulin requiring. 6. GERD. 7. Chronic low back pain. 8. Chronic constipation. RECOMMENDATIONS: As mentioned earlier, continue the patient on Lovenox. The patient's corrected CHADS VASC2 Score is 2, and hence would advise the patient to be on anticoagulation but will have the acute events settle, during which time the patient's Lovenox at 125 mg subcutaneously q.12 h. Will continue hydration. Continue antibiotics. Continue the Cardizem at a small dose and increase as tolerated to 5 mg per hour infusion. Note, the patient is a FULL CODE. His is his surrogate healthcare decision maker. Note, 40 minutes spent on this patient with more than 50% of the time spent on direct patient care. Medications were reviewed and medications were adjusted and added. It is also my recommendation to start the patient on IV Cardizem infusion. Discussed with the other caregiving providers on the case including the attending physician and the nurses on the case. Discussed with the patient, and later the patient's . Once the heart rate comes down, we will get an echocardiogram. Note that this case required highly complex medical decision making due to the patient's atrial fibrillation with rapid ventricular response and underlying coronary artery disease and underlying abdominal pain/question infection and the patient's biliary cause. The patient does have a history of coronary artery disease with multiple stents and a history of minimally invasive direct coronary artery graft placement with a العلي to the LAD. All questions were answered. Will follow with you. Note, 40 minutes spent on the patient. DICTATING PHYSICIAN: ELOY DEJESUS M.D. [id number] PHY#: [id number] ID: [id number] JOB#: [id number] ACCT: [id number] cc:ELOY DEJESUS M.D. >
[2016-11-25] MEDS: CIPROFLOXACIN 400 MG/D5W RTU 400 MG/200 ML RTUPB IV SCH ×2 (00:58→12:37)
[2016-11-25] MEDS: TEMAZEPAM 15 MG CAPSULE PO PRN ×2 (02:17→23:32)
[2016-11-25 05:03] LABS: ABSOLUTE EOSINOPHILS # (AUTO) 0.2 10^3/uL (0.0-0.6); ABSOLUTE LYMPHOCYTES (AUTO) 0.5 10^3/uL (0.5-4.7); ABSOLUTE MONOCYTES (AUTO) 0.3 10^3/uL (0.1-1.4); ABSOLUTE NEUT (AUTO) 2.5 10^3/uL (1.7-8.2); BASOPHILS % (AUTO) 0.6 % (0-2); EOSINOPHILS % (AUTO) 6.1 % (0-6); HEMATOCRIT 36.3 % (37.9-51.0); HEMOGLOBIN 12.6 g/dL (13.5-17.0); HGB HCT DIFFERENCE 1.5; LYMPHOCYTES % (AUTO) 14.8 % (13-45); MEAN CORPUSCULAR HEMOGLOBIN 30.4 pg (27.0-33.4); MEAN CORPUSCULAR HGB CONC 34.7 g/dL (32.0-36.0); MEAN CORPUSCULAR VOLUME 88 fl (80-97); RED BLOOD COUNT 4.15 10^6/uL (4.35-5.55); SEGMENTED NEUTROPHILS % (AUTO) 70.5 % (42-78); WHITE BLOOD COUNT 3.6 10^3/uL (4.0-10.5)
[2016-11-25 05:19] LABS: ALANINE AMINOTRANSFERASE 93 U/L (21-72); ALBUMIN 3.1 g/dL (3.5-5.0); ALKALINE PHOSPHATASE 96 U/L (38-126); ANION GAP 12 (5-19); ASPARTATE AMINO TRANSFERASE 77 U/L (17-59); BILIRUBIN,DIRECT 2.5 mg/dL (0.0-0.4); BILIRUBIN,TOTAL 3.2 mg/dL (0.2-1.3); BLOOD UREA NITROGEN 13 mg/dL (7-20); CALCIUM 8.1 mg/dL (8.4-10.2); CARBON DIOXIDE 25 mmol/L (22-30); CHLORIDE 100 mmol/L (98-107); CREATININE RESULT 0.72 mg/dL (0.52-1.25); GLUCOSE 108 mg/dL (75-110); POTASSIUM 3.2 mmol/L (3.6-5.0); SODIUM 136.5 mmol/L (137-145)
[2016-11-25] MEDS: METRONIDAZOLE 500 MG/NS RTU 100 ML IV SCH ×4 (05:35→23:20)
[2016-11-25] MEDS: OXYCODONE HCL IR 5 MG TABLET PO PRN ×2 (06:00→20:24)
--- NOTE | 2016-11-25 07:51 | EKG REPORT ---
SEVERITY:- ABNORMAL ECG - SINUS RHYTHM NONSPECIFIC INTRAVENTRICULAR CONDUCTION DELAY CONSIDER ANTERIOR INFARCT : Confirmed by: Almita Tavarez 25-Nov-2016 07:50:32
[2016-11-25] MEDS ORDERED: LANSOPRAZOLE 30 MG TAB.RAP.DR PO SCH (08:00)
[2016-11-25] MEDS ORDERED: POTASSIUM CHLORIDE 10 MEQ TABLET.SA PO ONE (09:00)
[2016-11-25] MEDS: ENOXAPARIN SODIUM INJ 150 MG/1 ML DISP.SYRIN SUBCUT SCH (09:54)
[2016-11-25] MEDS: METOPROLOL SUCCINATE 25 MG TAB.SR.24H PO SCH (09:55)
[2016-11-25] MEDS: ASPIRIN 81 MG TABLET, CHEWABLE PO SCH (09:56)
[2016-11-25] MEDS: CLOPIDOGREL BISULFATE 75 MG TABLET PO SCH (09:56)
[2016-11-25] MEDS ORDERED: LISINOPRIL 10 MG TABLET ONE (10:45)
[2016-11-25] MEDS: POTASSIUM CHLORIDE 10 MEQ TABLET.SA PO SCH ×2 (10:48→12:38)
[2016-11-25] MEDS ORDERED: LISINOPRIL 5 MG TABLET PO ONE (11:30)
--- NOTE | 2016-11-25 12:44 | XCELERA REPORT ---
[address] [address] Transthoracic Echocardiogram Report Name: CAYETANO SCHMITT Age: 66 yrs Gender: Male : 1950 Patient Status: Inpatient Patient Location: 3S\S\331\S\A Study Date: 11/25/2016 08:56 AM Height: 71 in Weight: 281 lb BSA: 2.4 m2 Procedure: A two-dimensional transthoracic echocardiogram with color flow and Doppler was performed. Study Quality: Technically suboptimal. Poor endocardial visualisation. Reason For Study: CAD, ATRIAL FIBRILLATION History: CAD, ATRIAL FIBRILLATION. Ordering Physician: DAILY DEJESUS Performed By: Parul Gr Interpretation Summary The left ventricle is normal in size. There is normal left ventricular wall thickness. LV EF is 60% Left ventricular systolic function is normal. Doppler measurements suggest normal left ventricular diastolic function pROBALY NO REGIONAL WALL MOTION ABNORMALITY. The right ventricle is not well visualized secondary to technical limitations The left atrial size is normal. There is mild mitral annular calcification. There is no evidence of mitral valve prolapse. There is no mitral valve stenosis. There is a trace amount of mitral regurgitation There is no aortic valvular vegetation. There is no aortic valve stenosis There is no LVOT obstruction. No aortic regurgitation is present. THERE IS AORTIC SCLEROSIS WITHOUT STENOSIS. There is no tricuspid stenosis. There is a trace amount of tricuspid regurgitation Right ventricular systolic pressure is normal. RVSP is 20 mm of Hg , with RA mean of 5 There is no pericardial effusion. MMode/2D Measurements \T\ Calculations RVDd: 3.2 cm LVIDd: 4.6 cm FS: 34.4 % Ao root diam: 3.1 cm IVSd: 1.1 cm LVIDs: 3.0 cm EDV(Teich): 98.6 ml LVPWd: 1.1 cm ESV(Teich): 36.0 ml Ao root area: 7.4 cm2 EF(Teich): 63.4 % LA dimension: 3.8 cm LVOT diam: 2.3 cm LVOT area: 4.2 cm2 Doppler Measurements \T\ Calculations MV E max tino: MV P1/2t max tino: Ao V2 max: LV V1 max P.6 cm/sec 106.3 cm/sec 106.0 cm/sec 2.6 mmHg MV A max tino: MV P1/2t: 59.7 msec Ao max PG: LV V1 max: 85.4 cm/sec MVA(P1/2t): 3.7 cm2 4.5 mmHg 80.2 cm/sec MV E/A: 1.2 MV dec slope: PERLA(V,D): 3.2 cm2 520.9 cm/sec2 PA V2 max: TR max tino: 65.1 cm/sec 191.0 cm/sec PA max P.7 mmHgTR max P.6 mmHg Left Ventricle The left ventricle is normal in size. There is normal left ventricular wall thickness. LV EF is 60%. Left ventricular systolic function is normal. Doppler measurements suggest normal left ventricular diastolic function. pROBALY NO REGIONAL WALL MOTION ABNORMALITY. There is no thrombus. There is no ventricular septal defect visualized. Right Ventricle The right ventricle is not well visualized secondary to technical limitations. Atria The right atrium is normal. The left atrial size is normal. The interatrial septum is intact with no evidence for an atrial septal defect. Mitral Valve There is mild mitral annular calcification. There is no evidence of mitral valve prolapse. There is no vegetation seen on the mitral valve. There is no mitral valve stenosis. There is a trace amount of mitral regurgitation. Aortic Valve There is no aortic valvular vegetation. There is no aortic valve stenosis. There is no LVOT obstruction. THERE IS AORTIC SCLEROSIS WITHOUT STENOSIS. No aortic regurgitation is present. Tricuspid Valve There is no tricuspid stenosis. There is a trace amount of tricuspid regurgitation. Right ventricular systolic pressure is normal. RVSP is 20 mm of Hg , with RA mean of 5. Pulmonic Valve There is no pulmonic valvular stenosis. There is no pulmonic valvular regurgitation. Great Vessels The aortic root is normal size. Effusions There is no pericardial effusion. : DAILY DEJESUS > Daily Dejesus
[2016-11-25] MEDS ORDERED: ONDANSETRON HCL INJ/PF 4 MG/2 ML SDV IV PRN (14:27)
[2016-11-25] MEDS ORDERED: ONDANSETRON HCL INJ/PF 4 MG/2 ML SDV IV ONE (14:27)
[2016-11-25 15:05] LABS: HEMATOCRIT 40.3 % (37.9-51.0); HEMOGLOBIN 13.5 g/dL (13.5-17.0); HGB HCT DIFFERENCE 0.2; MEAN CORPUSCULAR HGB CONC 33.5 g/dL (32.0-36.0); MEAN CORPUSCULAR VOLUME 89 fl (80-97); RED BLOOD COUNT 4.51 10^6/uL (4.35-5.55); RED CELL DISTRIBUTION WIDTH 13.8 % (11.5-14.0); WHITE BLOOD COUNT 3.6 10^3/uL (4.0-10.5)
[2016-11-25 15:25] LABS: ANION GAP 11 (5-19); BLOOD UREA NITROGEN 12 mg/dL (7-20); CALCIUM 8.6 mg/dL (8.4-10.2); CARBON DIOXIDE 26 mmol/L (22-30); CHLORIDE 99 mmol/L (98-107); CREATININE RESULT 0.67 mg/dL (0.52-1.25); GLUCOSE 206 mg/dL (75-110); SODIUM 135.9 mmol/L (137-145)
[2016-11-25 15:39] LABS: POTASSIUM 4.3 mmol/L (3.6-5.0)
--- NOTE | 2016-11-25 15:54 | PROGRESS NOTE E ---
Progress Note NAME: CAYETANO SCHMITT : 1950 AGE: 66Y DATE: 11/25/2016 ROOM: 331 SUBJECTIVE: The patient is currently lying in bed. He states he feels better today than he did yesterday. Did have some nausea, therefore had an episode of vomiting. The patient also had one episode of stool with bright red bleeding per rectum. The patient states that since his hemorrhoidectomy, he is prone to having rectal bleeding. I have discussed the case with cardiology. The patient is off Cardizem drip and has maintained sinus rhythm. Symptoms of infection overall have improved; however, given the patient's vomiting and bloody bowel movement, will defer discharge for today. The patient is in agreement to this plan. Patient does not voice any other concerns at this time. REVIEW OF SYSTEMS: Rest of the review of systems negative. MEDICATIONS: Have been reviewed. PHYSICAL EXAMINATION: GENERAL: The patient is a 66-year-old male who is awake, alert, and oriented to person, place, and situation. He is verbal, conversational, ambulatory; does not appear to be in any acute distress. VITAL SIGNS: As follows: Temperature 97.8, pulse 72, respirations 16, blood pressure 130/107. Oxygen saturation is 100% on room air. SKIN: Is warm and dry. No rash. Not diaphoretic. HEENT: Pupils equal, round, reactive to light and accommodation. Conjunctivae are pink. No JVP. CARDIOVASCULAR: Heart is regular. There is no murmur or rub. CHEST: Is clear, symmetrical, unlabored. ABDOMEN: Is soft, nontender, nondistended. BACK: No CVA tenderness or sacral edema. EXTREMITIES: No clubbing, cyanosis, edema. PSYCHIATRIC: Appropriate affect. Pleasant mood. DIAGNOSTICS: Lab values are as follows: Hematology obtained on 11/25/2016: WBCs are 3.6, hemoglobin is 12.6, hematocrit is 36.3, platelet count is 101,000. Chemistry obtained on 11/25/2106: Sodium is 136, potassium 4.2, chloride is 100, carbon dioxide 25, BUN 13, creatinine is 0.72, glucose 108, calcium is 8.1, bilirubin 3.2, direct bilirubin. AST 77, ALT is 93. IMPRESSION AND PLAN: 1. E-COLI BACTEREMIA. THE PATIENT'S REPEAT SET OF CULTURES IS NEGATIVE. I DO FEEL THIS WAS MOST LIKELY A DIVERTICULA SOURCE, GIVEN THE PATIENT'S CHRONIC CONSTIPATION, INTERMITTENT DIARRHEA, THAT SORT OF THING. RECENT CULTURES WERE NEGATIVE. Will continue antibiotic coverage and follow. 2. SEPSIS, SECONDARY TO NUMBER 1; IMPROVED. 3. ATRIAL FLUTTER/AFIB. The patient is now in sinus rhythm. I do appreciate cardiology's input with this. He is off the Cardizem drip. Will follow. 4. ABNORMAL LFTS. THESE WERE NORMAL IN JULY. APPEAR TO BE TRENDING DOWN. Will hold off on hepatoxic medications; may be due to simple sepsis process. 5. DIABETES MELLITUS TYPE 2. Will continue sliding scale coverage. 6. CORONARY ARTERY DISEASE. Will continue the patient's home medication. 6. GASTROESOPHAGEAL REFLUX DISEASE. Will continue PPI therapy. 7. CHRONIC BACK PAIN. Will continue home medication. 8. OPIATE DEPENDENCY. Will continue home medications. 9. RECTAL BLEEDING. THE PATIENT DOES HAVE A HISTORY OF HEMORRHOIDS. MAY BE DUE TO DIVERTICULAR ETIOLOGY. Will repeat CBC and monitor. 10. NAUSEA. Will add p.r.n. antiemetics. DISPOSITION: The patient is a FULL CODE. Pending patient's symptomatology and diagnostic findings, will reevaluate in the a.m. TIME SPENT ON THIS FOLLOWUP: Including assessment, plan, physical examination, and patient education, and special collaboration is 40 minutes. DICTATING PHYSICIAN: JORDIN ROMAN NP [id number] PHY#: [id number] ID: [id number] JOB#: [id number] ACCT: [id number] cc: > [facility]
[2016-11-25] MEDS: ISOSORBIDE MONONITRATE 30 MG TAB.ER.24H PO SCH (17:49)
[2016-11-25] MEDS: INSULIN GLARGINE,HUM.REC.ANLOG 300 UNIT/3 ML INSULN.PEN SUBCUT SCH (21:56)
[2016-11-25] MEDS ORDERED: METOPROLOL SUCCINATE 25 MG TAB.SR.24H PO SCH (22:00)
--- NOTE | 2016-11-25 22:19 | PROGRESS NOTE E ---
Progress Note NAME: CAYETANO SCHMITT : 1950 AGE: 66Y DATE: 11/25/2016 ROOM: 331 SUBJECTIVE: Note the patient has converted to sinus rhythm. He denies any chest pain or discomfort. There is no PND or orthopnea. There are no anginal symptoms. The patient denies any palpitations, syncope, near-syncope, dizziness, or TIA or CVA symptoms. He had some blood in his stools, and he states that he has a history of hemorrhoids, but as per the nurses' and the patient's history, he had a history of hemorrhoidectomy and had to have a portion of the colon resected due to bleeding, and hence at this time patient is not a good candidate for chronic anticoagulation therapy. OBJECTIVE: GENERAL: On examination the patient is moderately obese, in no acute distress. VITAL SIGNS: He is afebrile. His pulse is 72 beats per minute. Blood pressure is 122/64. Respirations are 16 per minute. O2 saturations are 96% on room air. HEAD: Atraumatic/normocephalic. EYES: Pupils are equal, round, regular, reactive to light and accommodation. Extraocular movements are normal. There is no conjunctival pallor. There is no scleral icterus. EARS, NOSE, AND THROAT: Negative. NECK: Supple. There is no JVD. Carotids are equal. There is no bruit. There is no lymphadenopathy. There is no goiter. Trachea is central. LUNGS: Clear to auscultation and percussion. HEART: S1, S2 is heard. There is no S3 gallop. There is no S4 gallop. S1 is of normal intensity. There are no gallops. There is a systolic murmur in the left sternal border and the apex without radiation. There is no rub. ABDOMEN: Soft, nontender. There is no hepatosplenomegaly. Bowel sounds are well heard. EXTREMITIES: Tremors are slightly diminished. There is no femoral bruit. Leg pulses are well felt. There is no DVT or cellulitis. There is no pedal edema. There is no calf tenderness. There is no cyanosis or clubbing. CENTRAL NERVOUS SYSTEM: The patient is conscious, awake, alert, oriented x3 with no focal deficit. PSYCHIATRIC: The patient's judgement and insight are intact. His affect is normal. DIAGNOSTIC DATA: Note that the patient had an echocardiogram which showed normal LV ejection fraction with no wall motion abnormalities. No significant valvular lesions seen. No pulmonary hypertension. This has been discussed with the patient. The patient's EKG shows sinus rhythm, *------*, cannot exclude old anterior RI with T-wave inversion in leads V1 through V3 with diffuse T-wave flattening. The patient's white count is 3,600, his hemoglobin is 13.5, hematocrit is 40.3, and his platelet count is 116,000. The patient's sodium is 135.9, potassium 4.3, chloride is 99, CO2 is 26, the patient's BUN is 12, creatinine 0.67, GFR is greater than 60 and his glucose is 206, his calcium is 8.6. IMPRESSION: 1. PAROXYSMAL ATRIAL FIBRILLATION. At present, the patient is in sinus rhythm. Will stop the patient's Cardizem drip. Will increase the patient's Toprol XL to 25 mg p.o. q.12 h. 2. ABDOMINAL PAIN WITH FEVER, CHILLS, AND RIGORS. Question cause? Diverticulitis seems to have resolved. 3. BRIGHT-RED BLOOD PER RECTUM. Will need further investigation prior to initiation of anticoagulation therapy. 4. CAD, HISTORY OF RI, HISTORY OF CIRCUMFLEX STENT WITH A STAGED HYBRID PROCEDURE WITH THE PATIENT LATER HAVING MiCABG WITH A العلي TO THE LAD, SUBSEQUENTLY HAD AN ABNORMAL STRESS TEST AND HAD STENT PLACED IN THE SITE OF IN-STENT RESTENOSIS IN THE OBTUSE MARGINAL BRANCH AND ALSO 2 STENTS IN THE RIGHT CORONARY ARTERY. 5. GALLSTONES WITH NO EVIDENCE OF CHOLECYSTITIS, AND THE PATIENT HAS NO SYMPTOMS OF CHOLELITHIASIS. 6. DIABETES MELLITUS TYPE 2, INSULIN REQUIRING. 7. GERD. 8. CHRONIC LOW BACK PAIN. 9. CHRONIC CONSTIPATION. RECOMMENDATIONS: As mentioned earlier, we will increase the patient's Toprol XL. Will increase the patient's aspirin to 325 mg p.o. daily. We will get a 30-day event monitor to see if the patient has paroxysms of atrial fibrillation, at which point if there is no lower GI pathology that could cause bleeding, then would start the patient on oral anticoagulation therapy. This has been discussed with the patient and with the other caregiving providers of the case including the attending physician. Also in view of the patient being diabetic, would recommend starting on ARB for renal protection. Would recommend due to the lower GI bleed would stop the full-dose Lovenox and change it to Lovenox 40 mg subcutaneously daily to prevent DVT and for PE prophylaxis. This has been discussed in detail. Note, 30 minutes spent on this patient with more than 50% of the time spent on direct patient care. These medications have been reviewed and adjusted. This is a highly complex medical decision making case. The patient desires to follow up with me as an outpatient. After I have discussed that there are 3 cardiologists here, he prefers to follow up with me. Will arrange for a 30-day event monitor. The echocardiogram findings are discussed with the patient and with the attending physician. Most likely the patient will be discharged in the a.m., will follow with you. DICTATING PHYSICIAN: ELOY DEJESUS M.D. [id number] JOSHUAY#: [id number] ID: [id number] JOB#: [id number] ACCT: [id number] cc:ELOY DEJESUS M.D. >
[2016-11-26] MEDS: CIPROFLOXACIN 400 MG/D5W RTU 400 MG/200 ML RTUPB IV SCH (00:37)
[2016-11-26 05:56] LABS: HEMATOCRIT 37.9 % (37.9-51.0); HEMOGLOBIN 12.9 g/dL (13.5-17.0); HGB HCT DIFFERENCE 0.8; MEAN CORPUSCULAR HEMOGLOBIN 30.6 pg (27.0-33.4); MEAN CORPUSCULAR VOLUME 90 fl (80-97); RED BLOOD COUNT 4.22 10^6/uL (4.35-5.55); RED CELL DISTRIBUTION WIDTH 13.7 % (11.5-14.0); WHITE BLOOD COUNT 3.6 10^3/uL (4.0-10.5)
[2016-11-26] MEDS: METRONIDAZOLE 500 MG/NS RTU 100 ML IV SCH (06:06)
[2016-11-26 06:13] LABS: ALANINE AMINOTRANSFERASE 88 U/L (21-72); ALBUMIN 3.2 g/dL (3.5-5.0); ALKALINE PHOSPHATASE 153 U/L (38-126); ANION GAP 11 (5-19); ASPARTATE AMINO TRANSFERASE 80 U/L (17-59); BILIRUBIN,DIRECT 2.1 mg/dL (0.0-0.4); BILIRUBIN,TOTAL 2.7 mg/dL (0.2-1.3); BLOOD UREA NITROGEN 11 mg/dL (7-20); CALCIUM 8.7 mg/dL (8.4-10.2); CARBON DIOXIDE 24 mmol/L (22-30); CHLORIDE 105 mmol/L (98-107); CREATININE RESULT 0.79 mg/dL (0.52-1.25); GLUCOSE 143 mg/dL (75-110); MAGNESIUM 1.9 mg/dL (1.6-2.3); POTASSIUM 3.9 mmol/L (3.6-5.0); SODIUM 139.6 mmol/L (137-145); TOTAL PROTEIN 6.1 g/dL (6.3-8.2)
[2016-11-26] MEDS: OXYCODONE HCL IR 5 MG TABLET PO PRN (06:42)
[2016-11-26 09:28] VITALS: BP 128/78
[2016-11-26] MEDS ORDERED: LISINOPRIL 5 MG TABLET PO SCH (10:00)
[2016-11-26] MEDS ORDERED: ASPIRIN 81 MG TABLET, CHEWABLE PO SCH (10:00)
[2016-11-26] MEDS ORDERED: ASPIRIN 325 MG TABLET PO SCH (10:00)
--- NOTE | 2016-11-26 16:14 | DISCHARGE SUMMARY E ---
Discharge Summary NAME: CAYETANO SCHMITT : 1950 AGE: 66Y ADMITTED: 11/22/2016 DISCHARGED: 11/26/2016 CODE STATUS: FULL CODE. CONSULTING FINGER COBBLER: Dr. Faustin. PRIMARY CARE PROVIDER: The patient will be referred to the primary care provider who was inside solar sales consultant the day the patient was admitted. DISCHARGE DIAGNOSES: Include: 1. Diverticulitis. 2. E coli bacteremia, most likely secondary to number 1. 3. Sepsis secondary to the above which is resolved. 4. Atrial fibrillation/atrial flutter, rapid ventricular response, currently in sinus rhythm. 5. Abnormal LFTs which are improving. 6. Diabetes mellitus type 2. 7. Coronary artery disease. 8. Gastroesophageal reflux disease. 9. Chronic back pain with subsequent opiate dependency which is continuous. 10. Rectal bleeding, most likely secondary to number 1 which is resolved. 11. History of hemorrhoids with previous hemorrhoidectomy. 12. Nausea. DISCHARGE MEDICATIONS: Include: 1. Aspirin 325 mg p.o. daily 30 tablets 0 refills. 2. Lipitor 20 mg p.o. daily, hold until LFTs have been repeated. 3. Invokana-MET 150/1000 one tablet p.o. b.i.d., hold for 48 hours. 4. Cipro 500 mg p.o. BID 20 tablets 0 refills. 5. Plavix 75 mg p.o. daily. 6. Amaryl 1 mg p.o. b.i.d. 7. Soliqua 60 units at hour of sleep. 8. Imdur 30 mg p.o. every evening. 9. Lisinopril 5 mg p.o. daily 30 tablets 0 refills. 10. Mobic 15 mg p.o. daily. 13. Toprol XL 25 mg p.o. q.12 h. 60 tablets 0 refills. 14. Flagyl 500 mg p.o. q.6 h. 40 tablets 0 refills. 15. Zofran ODT 4 mg tablets 1 to 2 tablets p.o. q.4 h. p.r.n. nausea, 20 tablets 0 refills. 16. Oxycodone 40 mg p.o. 4 times a day p.r.n. 17. Protonix 40 mg p.o. daily. 18. Restoril 30 mg p.o. at hour of sleep p.r.n. 19. Vitamin-B complex. 20. Vitamin E 1000 units p.o. daily. DIAGNOSTICS: Lab values are as follows: Hematology obtained on 11/26/2016; WBCs are 3.6, hemoglobin is 12.9, hematocrit 37.9, platelet count is 117,000. Coagulation obtained on 11/22/2016: PT is 13.1, INR is 0.93. Blood gas obtained on 11/22/2016; pH is 7.38, pCO2 is 42.4, bicarbonate is 24. Chemistry obtained on 11/26/2016: Sodium is 139, potassium 3.9, chloride is 105, carbon dioxide 24, BUN 11, creatinine is 0.79, glucose 143, lactic acid is 1.8, calcium 8.7, magnesium is 1.9, total protein 2.8, total bilirubin is 2.7, direct bilirubin is 2.1, AST 80, ALT 88, alkaline phosphatase 153, troponin is 0.056, albumin 3.2, lipase 192. Urinalysis obtained on 11/24/2016: Color yellow, appearance clear, pH of 6.0, specific gravity 1.042, protein 100, glucose 150, ketones 100, occult blood negative, nitrite negative, bilirubin moderate, urobilinogen is 2.0, leukocyte esterase is negative, RBCs 0 to 1, WBCs 0 to 1, epithelial squamous cells rare, bacteria trace, ascorbic acid is 40. Serologies obtained on 11/23/2016: Hepatitis panel is negative. Microbiology: Urine culture obtained on 11/22/2016 revealed no growth. Blood cultures obtained on 11/22/2016 are positive for E coli. Blood cultures obtained on 11/24/2016 reveal no growth. Chest x-ray obtained on 11/22/2016 reveals no acute radiographic finding of the chest. Head CT obtained on 11/22/2016 reveals a normal brain CT without contrast. Abdominal ultrasound obtained on 11/23/2016 reveals no acute findings, borderline splenomegaly, no ascites. Abdominal x-ray obtained on 11/23/2016 reveals non-obstructive bowel gas pattern with a moderate amount of stool within the colon. A CT of the abdomen and pelvis obtained on 11/24/2016 reveals no significant or acute finding in the abdomen or pelvic on CT scan with IV contrast. EKG obtained on 11/22/2016 reveals sinus tachycardia. EKG obtained on 11/25/2016 reveals sinus rhythm. Echocardiogram obtained on 11/25/2016 reveals left ventricular ejection fraction of 60% with no evidence of diastolic dysfunction. PHYSICAL EXAMINATION: GENERAL: On examination the patient is a well-developed, well-nourished, 66-year-old male who is awake, alert and oriented to person, place, time, and situation. He is verbal, conversational, ambulatory, does not appear to be in any acute distress. VITAL SIGNS: As follows: Temperature is 97.7, pulse 78, respirations 20, blood pressure is 124/88, oxygen saturation 94% on room air. SKIN: Warm and dry. No rash. He is not diaphoretic. HEENT: Pupils equal, round, reactive to light and accommodation. Conjunctiva is pink. NECK: No JVD. CARDIOVASCULAR SYSTEM: Heart is regular. There is no murmur or rub. CHEST: Clear, symmetrical, unlabored. ABDOMEN: Soft, nontender, nondistended. Bowel sounds are present. BACK: No CVA tenderness, sacral edema. EXTREMITIES: No clubbing, cyanosis, edema. PSYCHIATRIC: Appropriate affect. Pleasant mood. HISTORY OF PRESENT ILLNESS: The patient is a 66-year-old male with a past medical history of chronic back pain, opiate dependency, and chronic constipation. The patient presented to the emergency department with a chief complaint of abdominal pain. The patient was also noted to be short of breath and had oxygen saturation to 88%. The patient initially was felt to have bronchitis versus an early pneumonia. The patient denied any sinus facial pain. No sore throat, wheezing, cough. The patient was found to have abnormal LFTs and elevation of lactic acid level. The patient denied any recent changes in medication but noted a severe constipation for the week prior. The patient also noted having tenderness over his left lower quadrant and was referred to the hospitalist for admission and management. HOSPITAL COURSE: The patient was admitted to continuous telemetry unit. The patient was placed on antibiotic coverage, was treated for diverticulitis. The patient underwent CT imaging which did not reveal any source. The patient was noted to have an elevation in LFTs and underwent abdominal ultrasound, but there was no evidence of ductal dilation. During the patient's stay, his blood cultures became positive with E coli, and the patient did have evidence of sepsis and subsequently went into a rapid ventricular response. The patient was transferred then to the [facility], was placed on Cardizem drip, and the patient did convert. The patient was seen by Dr. Faustin with Cardiology. During the patient's stay, he did have 1 episode of a bloody bowel movement; however, the patient did have a drop in hemoglobin with this and did not replicate his symptoms. The patient's anticoagulation was held. Given that the patient had converted, recommendations have been made for the patient to follow up with Cardiology for event monitor, and given the patient is already on aspirin and Plavix therapy, anticoagulation was deferred at this time. This was discussed between the patient and Cardiology. The patient did have improvement of the symptoms, but the only remaining symptom is some intermittent nausea which is well managed at this time with antiemetic therapy. The patient will establish primary care and will need follow-up LFTs given they are improving, however, a statin is currently on hold. The patient has been cleared for discharge from a Cardiology perspective. DISCHARGE PLANNIN. The patient is to follow up with the primary care provider who was inside solar sales consultant the day the patient was admitted for hospital followup. 2. The patient is follow up with Cardiology within 1 to 2 weeks for hospital followup and for an event monitor. 3. The patient is to follow up with Dr. Don with Surgery for evaluation of diverticulitis. Time spent on this discharge including assessment, plan, physical examination, patient education, and specialty collaboration is 35 minutes. DICTATING PHYSICIAN: JORDIN ROMAN NP [id number] PHY#: [id number] ID: [id number] JOB#: [id number] ACCT: [id number] cc:Harris HA NP > MTDD
== END 2016-11-26 09:53 | disposition home or self-care (01) | DRG 871 ==
LOC: ER 20:01 → EH 22:21 → UNDOADMIN 22:32 → EH 22:32 → 4N 11-23 00:04 → 3S 11-24 11:01
PROVIDERS: ADMIT Internal Medicine; ATTEND Internal Medicine
PROC: 3E0F73Z Introduction of Anti-inflammatory into Respiratory Tract, Via Natural or Artificial Opening (ICD-10-PCS; principal; 2016-11-22)
DX: A41.51 Sepsis due to Escherichia coli [E. coli] (principal); J18.9 Pneumonia, unspecified organism; K57.33 Diverticulitis of large intestine without perforation or abscess with bleeding; I48.92 Unspecified atrial flutter; E11.9 Type 2 diabetes mellitus without complications; I48.0 Paroxysmal atrial fibrillation; I25.10 Atherosclerotic heart disease of native coronary artery without angina pectoris; K21.9 Gastro-esophageal reflux disease without esophagitis; G89.29 Other chronic pain; R00.0 Tachycardia, unspecified; K59.09 Other constipation; M47.9 Spondylosis, unspecified; K80.80 Other cholelithiasis without obstruction; E78.5 Hyperlipidemia, unspecified; E66.9 Obesity, unspecified; Z68.39 Body mass index [BMI] 39.0-39.9, adult; I25.2 Old myocardial infarction; Z95.5 Presence of coronary angioplasty implant and graft; Z95.1 Presence of aortocoronary bypass graft; Z96.653 Presence of artificial knee joint, bilateral; Z79.891 Long term (current) use of opiate analgesic; Z79.02 Long term (current) use of antithrombotics/antiplatelets; Z79.4 Long term (current) use of insulin; Z79.82 Long term (current) use of aspirin; Z79.899 Other long term (current) drug therapy; Z82.49 Family history of ischemic heart disease and other diseases of the circulatory system; Z83.6 Family history of other diseases of the respiratory system
CPT/HCPCS: 36415; 70450; 71010; 74020; 74177; 76700; 80048; 80053; 80074; 80307; 81001; 82803; 82962; 83605; 83690; 83735; 84484; 85025; 85027; 85610; 87040; 87077; 87086; 87186; 93005; 93010; 93306; 94640; 94799; 96365; 99291; J0295; J0696; J0744; J1644; J1815; J1885; J1956; J2405; J3490; J7620; S0164

== ENCOUNTER → 2016-12-09 | Outpatient (CLI) | payer MEDICARE, OTHER ==
[2016-12-09 11:07] LABS: ALANINE AMINOTRANSFERASE 45 U/L (21-72); ALBUMIN 4.2 g/dL (3.5-5.0); ALKALINE PHOSPHATASE 121 U/L (38-126); ANION GAP 11 (5-19); ASPARTATE AMINO TRANSFERASE 45 U/L (17-59); BILIRUBIN,DIRECT 0.5 mg/dL (0.0-0.4); BILIRUBIN,TOTAL 0.9 mg/dL (0.2-1.3); BLOOD UREA NITROGEN 9 mg/dL (7-20); CALCIUM 9.1 mg/dL (8.4-10.2); CARBON DIOXIDE 28 mmol/L (22-30); CHLORIDE 101 mmol/L (98-107); CREATININE RESULT 0.72 mg/dL (0.52-1.25); GLUCOSE 166 mg/dL (75-110); POTASSIUM 4.6 mmol/L (3.6-5.0); SODIUM 139.5 mmol/L (137-145); TOTAL PROTEIN 7.3 g/dL (6.3-8.2)
[2016-12-11 07:26] LABS: TESTOSTERONE FREE (DIRECT) 5.7 pg/mL (6.6-18.1)
== END ==
LOC: OD 10:04
PROVIDERS: ATTEND Family Medicine
DX: E11.65 Type 2 diabetes mellitus with hyperglycemia (principal); E29.1 Testicular hypofunction; E78.5 Hyperlipidemia, unspecified; E66.01 Morbid (severe) obesity due to excess calories; G89.29 Other chronic pain; I25.10 Atherosclerotic heart disease of native coronary artery without angina pectoris; M51.26 Other intervertebral disc displacement, lumbar region; G47.00 Insomnia, unspecified
CPT/HCPCS: 36415; 80053; 83036; 84153; 84402; 84403

== ENCOUNTER 2017-03-09 16:28 | Inpatient (IN) | payer MEDICARE, OTHER ==
--- NOTE | 2017-03-09 18:02 | ER Document Report ---
ED Medical Screen (RME) - General Chief Complaint: Abdominal Pain Stated Complaint: STOMACH PAIN Time Seen by Provider: 03/09/17 17:59 Notes: Patient states that he was having a normal day yesterday. He states he woke up this morning with severe epigastric and right upper quadrant abdominal pain. He states he has been diagnosed before with gallstones by ultrasound approximately 4 months ago. He has had no vomiting but some nausea. He has had no diarrhea. He states he has to take MiraLAX every day or he gets constipated and he has not had his MiraLAX in 2 days. He states he was able to eat a normal bowl of cereal today. TRAVEL OUTSIDE OF THE [place] IN LAST 30 DAYS: No - Related Data Allergies/Adverse Reactions: No Known Allergies Allergy (Verified 03/09/17 17:46) Past Medical History - Social History Chew tobacco use (# tins/day): No Frequency of alcohol use: None Drug Abuse: None - Past Medical History Cardiac Medical History: Reports: Hx Heart Attack Pulmonary Medical History: Reports: Hx COPD Endocrine Medical History: Reports: Hx Diabetes Mellitus Type 2 Renal/ Medical History: Reports: Hx Kidney Stones. Denies: Hx Peritoneal Dialysis GI Medical History: Reports: Hx Gastroesophageal Reflux Disease Psychiatric Medical History: Denies: Hx Depression Past Surgical History: Reports: Hx Cardiac Surgery - bypass, Hx Coronary Artery Bypass Graft - robotic, Hx Orthopedic Surgery - Bilateral knees - Immunizations Hx Diphtheria, Pertussis, Tetanus Vaccination: No History of Influenza Vaccine for 03/2017 - 07/2017 Season: No Physical Exam - Vital signs Vitals: Temp Pulse Resp BP Pulse Ox 98.6 F 68 18 130/64 H 98 03/09/17 17:14 03/09/17 17:14 03/09/17 17:14 03/09/17 17:14 03/09/17 17:14 Course - Vital Signs Vital signs: Temp Pulse Resp BP Pulse Ox 98.6 F 68 18 130/64 H 98 03/09/17 17:14 03/09/17 17:14 03/09/17 17:14 03/09/17 17:14 03/09/17 17:14
[2017-03-09 18:33] LABS: ABSOLUTE EOSINOPHILS # (AUTO) 0.1 10^3/uL (0.0-0.6); ABSOLUTE LYMPHOCYTES (AUTO) 0.8 10^3/uL (0.5-4.7); ABSOLUTE MONOCYTES (AUTO) 0.6 10^3/uL (0.1-1.4); ABSOLUTE NEUT (AUTO) 6.7 10^3/uL (1.7-8.2); BASOPHILS % (AUTO) 0.4 % (0-2); HEMATOCRIT 40.5 % (37.9-51.0); HEMOGLOBIN 14.1 g/dL (13.5-17.0); HGB HCT DIFFERENCE 1.8; LYMPHOCYTES % (AUTO) 9.4 % (13-45); MEAN CORPUSCULAR HEMOGLOBIN 30.7 pg (27.0-33.4); MEAN CORPUSCULAR HGB CONC 34.8 g/dL (32.0-36.0); MEAN CORPUSCULAR VOLUME 88 fl (80-97); MONOCYTES % (AUTO) 7.2 % (3-13); RED CELL DISTRIBUTION WIDTH 13.7 % (11.5-14.0); WHITE BLOOD COUNT 8.2 10^3/uL (4.0-10.5)
[2017-03-09 18:52] LABS: ALANINE AMINOTRANSFERASE 146 U/L (21-72); ALBUMIN 4.4 g/dL (3.5-5.0); ALKALINE PHOSPHATASE 86 U/L (38-126); ANION GAP 13 (5-19); ASPARTATE AMINO TRANSFERASE 310 U/L (17-59); BILIRUBIN,TOTAL 2.9 mg/dL (0.2-1.3); BLOOD UREA NITROGEN 16 mg/dL (7-20); CALCIUM 9.6 mg/dL (8.4-10.2); CARBON DIOXIDE 28 mmol/L (22-30); CHLORIDE 100 mmol/L (98-107); CREATININE RESULT 0.69 mg/dL (0.52-1.25); GLUCOSE 245 mg/dL (75-110); POTASSIUM 4.9 mmol/L (3.6-5.0); SODIUM 140.8 mmol/L (137-145); TOTAL PROTEIN 7.3 g/dL (6.3-8.2)
[2017-03-09] MEDS ORDERED: NORMAL SALINE 1000 ML 1,000 ML IV PRN (19:22)
[2017-03-09 19:23] LABS: LIPASE 9952.5 U/L (23-300)
[2017-03-09] MEDS ORDERED: MORPHINE SULFATE 10 MG/ML INJ IV ONE ×2 (19:23→20:33)
[2017-03-09] MEDS ORDERED: ONDANSETRON HCL INJ/PF 4 MG/2 ML SDV IV ONE (19:23)
--- NOTE | 2017-03-09 19:24 | ER Document Report ---
ED General - General Chief Complaint: Abdominal Pain Stated Complaint: STOMACH PAIN Time Seen by Provider: 03/09/17 17:59 Mode of Arrival: Ambulatory Information source: Patient Notes: This is a 66-year-old man with a history of coronary artery disease, diabetes, COPD, cholelithiasis who presents to the emergency room with upper epigastric and right upper quadrant abdominal pain since early this morning. Patient denies fever. TRAVEL OUTSIDE OF THE [place] IN LAST 30 DAYS: No - HPI Onset: Just prior to arrival Onset/Duration: Gradual Quality of pain: No pain Severity: None Pain Level: Denies Associated symptoms: denies: Chest pain, Fever, Shortness of breath - Is no Exacerbated by: Denies Relieved by: Denies Similar symptoms previously: Yes Recently seen / treated by doctor: No - Related Data Allergies/Adverse Reactions: No Known Allergies Allergy (Verified 03/09/17 17:46) Home Medications: Current Home Medications Aspirin [Aspirin 325 mg Tablet] 325 mg PO DAILY 03/09/17 [History] Atorvastatin Calcium [Lipitor 20 mg Tablet] 20 mg PO DAILY 03/09/17 [History] Canagliflozin/Metformin HCl [Invokamet 150-1,000 mg Tablet] 1 each PO BID [History] Clopidogrel Bisulfate [Plavix 75 mg Tablet] 75 mg PO DAILY 03/09/17 [History] Glimepiride [Amaryl 1 mg Tablet] 1 mg PO BID 03/09/17 [History] Insulin Glargine/Lixisenatide [Soliqua 100 Unit-33 Mcg/ml Pen] 60 ml SQ QHS 02/15 [History] Isosorbide Mononitrate [Isosorbide Mononitrate ER] 30 mg PO QPM 03/09/17 [ History] Lisinopril [Prinivil 5 mg Tablet] 5 mg PO DAILY 03/09/17 [History] Meloxicam [Mobic] 15 mg PO DAILY 03/09/17 [History] Metoprolol Succinate [Toprol Xl 25 mg Tab.sr] 25 mg PO Q12 03/09/17 [History] Oxycodone HCl [Oxy-Ir 5 mg Tablet] 20 mg PO QIDP PRN 03/09/17 [History] Pantoprazole Sodium [Protonix] 40 mg PO DAILY 03/09/17 [History] Temazepam [Restoril] 30 mg PO HSP PRN 03/09/17 [History] Vitamin B Complex [B Complex] 1 each PO DAILY 03/09/17 [History] Vitamin E 1,000 unit PO DAILY 03/09/17 [History] Past Medical History - General Information source: Patient - Social History Smoking Status: Unknown if Ever Smoked Cigarette use (# per day): No Chew tobacco use (# tins/day): No Frequency of alcohol use: None Drug Abuse: None Lives with: Family Family History: CAD, COPD, Hypertension Patient has suicidal ideation: No Patient has homicidal ideation: No - Past Medical History Cardiac Medical History: Reports: Hx Heart Attack Pulmonary Medical History: Reports: Hx COPD Endocrine Medical History: Reports: Hx Diabetes Mellitus Type 2 Renal/ Medical History: Reports: Hx Kidney Stones. Denies: Hx Peritoneal Dialysis GI Medical History: Reports: Hx Gastroesophageal Reflux Disease Psychiatric Medical History: Denies: Hx Depression Past Surgical History: Reports: Hx Cardiac Surgery - bypass, Hx Coronary Artery Bypass Graft - robotic, Hx Orthopedic Surgery - Bilateral knees - Immunizations Hx Diphtheria, Pertussis, Tetanus Vaccination: No Review of Systems - Review of Systems Constitutional: denies: Chills, Fever EENT: No symptoms reported Cardiovascular: No symptoms reported Respiratory: No symptoms reported Gastrointestinal: See HPI Genitourinary: No symptoms reported Male Genitourinary: No symptoms reported Musculoskeletal: No symptoms reported Skin: No symptoms reported Hematologic/Lymphatic: No symptoms reported Neurological/Psychological: No symptoms reported Physical Exam - Vital signs Vitals: Temp Pulse Resp BP Pulse Ox 98.6 F 68 18 130/64 H 98 03/09/17 17:14 03/09/17 17:14 03/09/17 17:14 03/09/17 17:14 03/09/17 17:14 Notes: Physical exam: GENERAL: 66-year-old man, alert and oriented 3, no acute distress. HEAD: Atraumatic, normocephalic. EYES: Pupils equal round and reactive to light, extraocular movements intact, sclera anicteric, conjunctiva are normal. ENT: TMs normal, nares patent, oropharynx clear without exudates. Moist mucous membranes. NECK: Normal range of motion, supple without obvious mass or JVD. LUNGS: Breath sounds clear to auscultation bilaterally and equal. No wheezes rales or rhonchi. HEART: Regular rate and rhythm without murmurs, rubs or gallops. ABDOMEN: Soft, normoactive bowel sounds. Patient does have tenderness to palpation in the epigastrium and right upper quadrant. No guarding, no rebound. No masses appreciated. EXTREMITIES: Normal range of motion, no pitting or edema. No clubbing or cyanosis. NEUROLOGICAL: Cranial nerves II through XII grossly intact. Normal speech, moving all extremities. PSYCH: Normal mood, normal affect. SKIN: Warm, Dry, normal turgor, no rashes or lesions noted. Course - Vital Signs Vital signs: Temp Pulse Resp BP Pulse Ox 98.4 F 64 19 115/61 99 03/09/17 23:24 03/09/17 23:24 03/09/17 23:24 03/09/17 23:24 03/09/17 23:24 - Laboratory Result Diagrams: 03/09/17 18:10 03/09/17 18:10 Laboratory results interpreted by me: 03/09/17 03/09/17 18:10 18:10 Seg Neutrophils % 82.0 H Lymphocytes % 9.4 L Glucose 245 H Total Bilirubin 2.9 H Direct Bilirubin 2.0 H AST 310 H ALT 146 H Lipase 9952.5 H - Diagnostic Test Radiology reviewed: Image reviewed, Reports reviewed - Ultrasound of the abdomen shows cholelithiasis with borderline enlarged gallbladder wall Discharge - Discharge Clinical Impression: Cholecystitis, Gallstone pancreatitis Condition: Stable Disposition: ADMITTED INPATIENT Admitting Provider: Surgicalist - Dr. Sanchez Unit Admitted: Medical Floor
--- NOTE | 2017-03-09 20:11 | RADIOLOGY REPORT (SQ) ---
EXAM DESCRIPTION: U/S ABDOMEN LIMITED W/O DOP COMPLETED DATE/TIME: 03/09/2017 8:03 pm REASON FOR STUDY: ruq pain COMPARISON: None. TECHNIQUE: Dynamic and static grayscale images acquired of the abdomen and recorded on PACS. Additio nal selected color Doppler and spectral images recorded. LIMITATIONS: None. FINDINGS: PANCREAS: No masses. Visualized pancreatic duct normal caliber. LIVER: No masses. Fatty liver. 17.7 cm. LIVER VASCULATURE: Normal directional flow of the main portal vein and hepatic veins. GALLBLADDER: Gallbladder wall is borderline thick. Stones and sludge present in the gallbladder. ULTRASOUND-DETECTED SHI'S SIGN: Negative. INTRAHEPATIC DUCTS AND COMMON DUCT: CBD and intrahepatic ducts normal caliber. No filling defects. INFERIOR VENA CAVA: Normal flow. AORTA: No aneurysm. RIGHT KIDNEY: Normal size. Normal echogenicity. No solid or suspicious masses. No hydronephrosis. No calcifications. PERITONEAL AND RIGHT PLEURAL SPACE: No ascites or effusions. OTHER: No other significant findings. IMPRESSION: Cholelithiasis. Borderline thickening of the gallbladder wall. Fatty liver. TECHNICAL DOCUMENTATION: JOB ID: [id number]- All Rights Reserved
[2017-03-09] MEDS ORDERED: ERTAPENEM SODIUM INJ 1 GM VIAL IV ONE (21:04)
[2017-03-09] MEDS ORDERED: MORPHINE SULFATE 10 MG/ML INJ IV PRN (21:23)
[2017-03-09] MEDS ORDERED: ONDANSETRON HCL INJ/PF 4 MG/2 ML SDV IV PRN (21:59)
--- NOTE | 2017-03-09 22:13 | PDOC H&P ---
History of Present Illness Admission Date/PCP: 03/09/17 21:23 Patient complains of: Abdominal pain History of Present Illness: CAYETANO SCHMITT is a 66 year old male presents emergency department this afternoon complaining of acute onset abdominal pain epigastric associated with nausea but no vomiting. He has had anorexia, dark stool. He has a history of cholelithiasis, no complications thereof. Patient was last hospitalized [facility] 4 months ago for acute Escherichia coli sepsis secondary to complicated diverticulitis. Patient's last colonoscopy several years ago; no pathologic findings patient has a history of intermittent constipation. Then he has done reasonably well. He has multiple chronic comorbidities which have been in the usual state of stability . Emergency department was found to have significant abdominal tenderness and a gallbladder ultrasound which showed gallstones with thickened gallbladder wall. Liver function studies moderately elevated with a lipase level elevated to 9000. Because of pain, acute cholecystitis, early septic picture in this diabetic male, admission was advised Past Medical History Cardiac Medical History: Reports: Myocardial Infarction, Other - Surgery of coronary artery bypass grafting, العلي to the LAD, robotic, Cardiac History Note: Patient underwent cardiac catheterization [place], found to have alignment to the LAD open, with diffuse artery disease; see Dr. Mccann's note from 4 months ago. Patient has a history of multiple cardiac stents. Pulmonary Medical History: Reports: Chronic Obstructive Pulmonary Disease (COPD) Endocrine Medical History: Reports: Diabetes Mellitus Type 2 GI Medical History: Reports: Gastroesophageal Reflux Disease Psychiatric Medical History: Denies: Depression Past Surgical History Past Surgical History: Reports: Coronary Artery Bypass Graft - robotic, Orthopedic Surgery - Bilateral knees, Other - Traumatic repair of tendon right arm;, removal left upper quadrant Social History Smoking Status: Unknown if Ever Smoked Frequency of Alcohol Use: None Hx Recreational Drug Use: No Drugs: None Hx Prescription Drug Abuse: No Family History Family History: CAD, COPD, Hypertension Parental Family History Reviewed: Yes Children Family History Reviewed: Yes Sibling(s) Family History Reviewed.: Yes Medication/Allergy Home Medications: Aspirin [Aspirin 325 mg Tablet] 325 mg PO DAILY 03/09/17 Atorvastatin Calcium [Lipitor 20 mg Tablet] 20 mg PO DAILY 03/09/17 Canagliflozin/Metformin HCl [Invokamet 150-1,000 mg Tablet] 1 each PO BID Clopidogrel Bisulfate [Plavix 75 mg Tablet] 75 mg PO DAILY 03/09/17 Glimepiride [Amaryl 1 mg Tablet] 1 mg PO BID 03/09/17 Insulin Glargine/Lixisenatide [Soliqua 100 Unit-33 Mcg/ml Pen] 60 ml SQ QHS 02/15 Isosorbide Mononitrate [Isosorbide Mononitrate ER] 30 mg PO QPM 03/09/17 Lisinopril [Prinivil 5 mg Tablet] 5 mg PO DAILY 03/09/17 Meloxicam [Mobic] 15 mg PO DAILY 03/09/17 Metoprolol Succinate [Toprol Xl 25 mg Tab.sr] 25 mg PO Q12 03/09/17 Oxycodone HCl [Oxy-Ir 5 mg Tablet] 20 mg PO QIDP PRN 03/09/17 Pantoprazole Sodium [Protonix] 40 mg PO DAILY 03/09/17 Temazepam [Restoril] 30 mg PO HSP PRN 03/09/17 Vitamin B Complex [B Complex] 1 each PO DAILY 03/09/17 Vitamin E 1,000 unit PO DAILY 03/09/17 Allergies/Adverse Reactions: No Known Allergies Allergy (Verified 03/09/17 17:46) Review of Systems Constitutional: ABSENT: chills, fever(s), headache(s), weight gain, weight loss Eyes: ABSENT: visual disturbances Ears: ABSENT: hearing changes Gastrointestinal: PRESENT: as per HPI Genitourinary: ABSENT: dysuria, hematuria Musculoskeletal: PRESENT: back pain Neurological: ABSENT: abnormal gait, abnormal speech, confusion, dizziness, focal weakness, syncope Psychiatric: ABSENT: anxiety, depression, homidical ideation, suicidal ideation Endocrine: PRESENT: other - Patient reports dark urine Physical Exam Vital Signs: Temp Pulse Resp BP Pulse Ox 98.9 F 71 20 133/78 H 96 03/09/17 18:48 03/09/17 18:48 03/09/17 18:48 03/09/17 18:48 03/09/17 18:48 General appearance: PRESENT: mild distress Head exam: PRESENT: normocephalic Eye exam: PRESENT: EOMI Mouth exam: PRESENT: dry mucosa Neck exam: PRESENT: full ROM Respiratory exam: PRESENT: chest wall tenderness, clear to auscultation debra Cardiovascular exam: PRESENT: RRR Pulses: PRESENT: +1 pedal pulses bilateral, +2 pedal pulses bilateral GI/Abdominal exam: PRESENT: other - Tender epigastric right upper quadrant areas with guarding; no organomegaly; bowel sounds diminished Rectal exam: PRESENT: deferred Extremities exam: PRESENT: other - Reasonably full range of motion Neurological exam: PRESENT: alert, awake, oriented to person, oriented to place Psychiatric exam: PRESENT: anxious Results Impressions: Abdomen Ultrasound 03/09/17 18:00 IMPRESSION: Cholelithiasis. Borderline thickening of the gallbladder wall. Fatty liver. Assessment & Plan - Diagnosis (1) Cholecystitis, acute with cholelithiasis Is this a current diagnosis for this admission?: Yes (3) Constipation Is this a current diagnosis for this admission?: Yes (4) Abnormal LFTs Is this a current diagnosis for this admission?: Yes (6) Coronary artery disease Is this a current diagnosis for this admission?: Yes (7) Diabetes mellitus Is this a current diagnosis for this admission?: Yes - Time Time Spent: 50 to 70 Minutes Critical Time spent with patient: 15-24 minutes Medications reviewed and adjusted accordingly: Yes Anticipated discharge: Home - Inpatient Certification Based on my medical assessment, after consideration of the patient's comorbidities, presenting symptoms, or acuity I expect that the services needed warrant INPATIENT care.: Yes I certify that my determination is in accordance with my understanding of Medicare's requirements for reasonable and necessary INPATIENT services [42 CFR 412.3e].: Yes Medical Necessity: Need For IV Fluids, Need for Pain Control, Need for IV Antibiotics, Need for Surgery - Plan Summary Plan Summary: Summary: The patient's acute problem is consistent with cholecystitis secondary to cholelithiasis, with associated liver function elevation, particularly hyperbilirubinemia, and hyper lipase anemia consistent with possible retained common bile duct stone versus passage of CBD. The patient is receiving hydration and intravenous antibiotics and pain management. Plan: 1. Admit to surgical service, keep n.p.o. on IV fluids intravenous antibiotics and repeat liver function studies in the morning. 2. If patient's liver function studies and lipase improved, he may be a candidate for interval cholecystectomy, laparoscopic versus open with intraoperative cholangiography. If retained common duct identified, postoperative ERCP will be pursued; conversely if patient's liver function studies deteriorate, then consideration for preop ERCP will be made. 3. Patient is on Plavix and this will need to be held prior to surgical intervention. 4. We will consult Dr. Faustin, hotel operation manager, for preoperative evaluation.
[2017-03-09] MEDS ORDERED: DEXTROSE 40% GEL 15 GM TUBE PO PRN ×2 (22:15)
[2017-03-09] MEDS ORDERED: GLUCAGON,HUMAN RECOMB 1 MG INJ IM PRN (22:15)
[2017-03-09] MEDS ORDERED: INSULIN REG, HUMAN 100 UNIT/ML 3 ML VIAL (PYX) SUBCUT PRN (22:15)
[2017-03-09] MEDS ORDERED: DEXTROSE 50%-WATER 25 GM/50 ML DISP.SYRIN IV PRN ×2 (22:15)
[2017-03-09] MEDS ORDERED: SODIUM BICARBONATE IV ONE ×2 (22:48)
[2017-03-09] MEDS ORDERED: 1/2 NORMAL SALINE IV ONE ×2 (22:48)
[2017-03-09] MEDS: KETOROLAC TROMETHAMINE INJ/PF 30 MG/1 ML SDV IV PRN (23:49)
[2017-03-09] MEDS: NORMAL SALINE 1000 ML 1,000 ML IV PRN (23:50)
[2017-03-10] MEDS: MORPHINE SULFATE 10 MG/ML INJ IV PRN ×7 (01:00→22:28)
[2017-03-10] MEDS ORDERED: INFLUENZA ADLT QUAD (36MOS+) 2017-18 VAC 0.5 ML SYR IM PRN (01:20)
[2017-03-10 05:30] LABS: ALANINE AMINOTRANSFERASE 108 U/L (21-72); ALBUMIN 3.7 g/dL (3.5-5.0); ALKALINE PHOSPHATASE 73 U/L (38-126); ASPARTATE AMINO TRANSFERASE 129 U/L (17-59); BILIRUBIN,DIRECT 0.7 mg/dL (0.0-0.4); BILIRUBIN,TOTAL 1.6 mg/dL (0.2-1.3); TOTAL PROTEIN 6.2 g/dL (6.3-8.2)
[2017-03-10 05:54] LABS: LIPASE 4504.7 U/L (23-300)
[2017-03-10] MEDS: KETOROLAC TROMETHAMINE INJ/PF 30 MG/1 ML SDV IV PRN (06:04)
--- NOTE | 2017-03-10 13:20 | EKG REPORT ---
SEVERITY:- ABNORMAL ECG - SINUS RHYTHM BORDERLINE LEFT AXIS DEVIATION CONSIDER INFERIOR INFARCT NONSPECIFIC T ABNORMALITIES, ANTERIOR LEADS : Confirmed by: Alexander Ga MD 10-Mar-2017 13:20:03
--- NOTE | 2017-03-10 20:34 | PDOC CONSULTATION ---
Consultation Consult Date: 03/10/17 Attending physician:: ROSANNA RUBIO Consult reason:: Preop cardiac evaluation History of Present Illness Admission Date/PCP: 03/09/17 21:57 Patient complains of: Abdominal pain History of Present Illness: CAYETANO SCHMITT is a 66 year old male presents emergency department this afternoon complaining of acute onset abdominal pain epigastric associated with nausea but no vomiting. He has had anorexia, dark stool. He has a history of cholelithiasis, no complications thereof. Patient was last hospitalized [facility] 4 months ago for acute Escherichia coli sepsis secondary to complicated diverticulitis. Patient's last colonoscopy several years ago; no pathologic findings patient has a history of intermittent constipation. Then he has done reasonably well. He has multiple chronic comorbidities which have been in the usual state of stability . Emergency department was found to have significant abdominal tenderness and a gallbladder ultrasound which showed gallstones with thickened gallbladder wall. Liver function studies moderately elevated with a lipase level elevated to 9000. Because of pain, acute cholecystitis, early septic picture in this diabetic male, admission was advised This history was reviewed and confirmed. Patient does give history of coronary artery disease with prior placement of stent many years ago. He however denied any recent chest pain. He claims to have a stress test within the last 1 year which was negative. A 2D echo shows normal LVEF obtained few months ago. Patient denied any exertional chest pain. His EKG does show very minimal T- wave changes. These are nonspecific. Past Medical History Cardiac Medical History: Reports: Myocardial Infarction, Other - Surgery of coronary artery bypass grafting, العلي to the LAD, robotic, Pulmonary Medical History: Reports: Chronic Obstructive Pulmonary Disease (COPD) Endocrine Medical History: Reports: Diabetes Mellitus Type 2 GI Medical History: Reports: Gastroesophageal Reflux Disease Psychiatric Medical History: Denies: Depression Past Surgical History Past Surgical History: Reports: Coronary Artery Bypass Graft - robotic, Orthopedic Surgery - Bilateral knees, Other - Traumatic repair of tendon right arm;, removal left upper quadrant Social History Information Source: Patient Lives with: Family Smoking Status: Unknown if Ever Smoked Number of Years Smokin Last Time Smoked: 45 years ago Frequency of Alcohol Use: None Hx Recreational Drug Use: No Drugs: None Hx Prescription Drug Abuse: No - Advance Directive Resuscitation Status: Full Code Surrogate healthcare decision maker:: Surrogate decision maker is patient's Family History Family History: CAD, COPD, Hypertension Parental Family History Reviewed: Yes Children Family History Reviewed: Yes Sibling(s) Family History Reviewed.: Yes Medication/Allergy Home Medications: Aspirin [Aspirin 325 mg Tablet] 325 mg PO DAILY 03/09/17 Atorvastatin Calcium [Lipitor 20 mg Tablet] 20 mg PO DAILY 03/09/17 Canagliflozin/Metformin HCl [Invokamet 150-1,000 mg Tablet] 1 each PO BID Clopidogrel Bisulfate [Plavix 75 mg Tablet] 75 mg PO DAILY 03/09/17 Glimepiride [Amaryl 1 mg Tablet] 1 mg PO BID 03/09/17 Insulin Glargine/Lixisenatide [Soliqua 100 Unit-33 Mcg/ml Pen] 60 ml SQ QHS 02/15 Isosorbide Mononitrate [Isosorbide Mononitrate ER] 30 mg PO QPM 03/09/17 Lisinopril [Prinivil 5 mg Tablet] 5 mg PO DAILY 03/09/17 Meloxicam [Mobic] 15 mg PO DAILY 03/09/17 Metoprolol Succinate [Toprol Xl 25 mg Tab.sr] 25 mg PO Q12 03/09/17 Oxycodone HCl [Oxy-Ir 5 mg Tablet] 20 mg PO QIDP PRN 03/09/17 Pantoprazole Sodium [Protonix] 40 mg PO DAILY 03/09/17 Temazepam [Restoril] 30 mg PO HSP PRN 03/09/17 Vitamin B Complex [B Complex] 1 each PO DAILY 03/09/17 Vitamin E 1,000 unit PO DAILY 03/09/17 Allergies/Adverse Reactions: No Known Allergies Allergy (Verified 03/09/17 17:46) Physical Exam Vital Signs: Temp Pulse Resp BP Pulse Ox 97.5 F 73 18 127/82 H 97 03/10/17 16:00 03/10/17 16:00 03/10/17 16:00 03/10/17 16:00 03/10/17 16:00 Intake & Output 03/09/17 03/10/17 03/11/17 06:59 06:59 06:59 Intake Total 1115 1800 Output Total 350 1450 Balance 765 350 Weight 122.9 kg Exam: GENERAL: well-nourished and in no acute distress. Alert and oriented x3 HEAD: Atraumatic, normocephalic. EYES: Pupils equal round and reactive to light, extraocular movements intact, sclera anicteric, conjunctiva are normal. ENT: TMs normal, nares patent, oropharynx clear without exudates. Moist mucous membranes. No oral ulcerations or bleeding gums noted NECK: supple without lymphadenopathy. Trachea is central. No cervical or axillary lymphadenopathy noted. Carotids are 2+, JVD WNL LUNGS: Respiration seems nonlabored, no significant accessory muscle action noted. Breath sounds clear to auscultation bilaterally and equal noted. No wheezes rales or rhonchi noted. No significant dullness noted on percussion. CHEST: Palpation of the chest wall shows no significant chest wall tenderness. No other significant abnormalities noted. HEART: [place] [employer], No PSH, 1/6 JOHN aortic area, 1/6 lilly systolic murmur mitral area, no rubs, no gallops. ABDOMEN: Soft, mildly distended with mild epigastric tenderness appreciated, normoactive bowel sounds. No guarding, no rebound. No rigidity noted . No masses appreciated. EXTREMITIES: Pedal pulses are 1-2+, no calf tenderness noted. No clubbing or cyanosis.trace pedal edema noted NEUROLOGICAL: Focused neurological exam showed no significant neurologic deficit. Normal speech, no focal weakness appreciated. PSYCH: Normal mood, normal affect. Judgment and insight within normal limits. SKIN: No significant ecchymosis, rash, ulcerations or signs of pruritus noted. MUSCULOSKELETAL EXAM: No significant joint swelling noted. Results Laboratory Results: 03/10/17 04:29 Total Bilirubin 1.6 H AST 129 H ALT 108 H Alkaline Phosphatase 73 Total Protein 6.2 L Albumin 3.7 Lipase 4504.7 H EKG Comments: Sinus rhythm with minor nonspecific T-wave changes Impressions: Abdomen Ultrasound 03/09/17 18:00 IMPRESSION: Cholelithiasis. Borderline thickening of the gallbladder wall. Fatty liver. Assessment & Plan - Diagnosis (1) Coronary artery disease Is this a current diagnosis for this admission?: Yes (2) Diabetes mellitus Qualifiers: Diabetes mellitus type: type 2 Diabetes mellitus complication status: with unspecified complications Diabetes mellitus mcc insulin use: unspecified termite treater insulin use status Qualified Code(s): E11.8 - Type 2 diabetes mellitus with unspecified complications Is this a current diagnosis for this admission?: Yes (3) Pancreatitis Qualifiers: Chronicity: acute Is this a current diagnosis for this admission?: Yes (4) Cholelithiasis Qualifiers: Cholelithiasis location: gallbladder Cholecystitis acuity: unspecified acuity Is this a current diagnosis for this admission?: Yes - Notes Notes: Coronary artery disease: Symptomatically stable. Diabetes: Being expertly managed by hospitalist. Recommend hospitalization hospitalist consultation. Pancreatitis: Being expertly managed by surgeon. Cholelithiasis: Patient to undergo cholecystectomy. Timing of surgery to be decided by the surgeons. Preop cardiovascular examination: Patient felt to be average risk based on my evaluation evaluation by history. Have asked for previous evaluation from Dr. Faustin's office. Feel that patient stable from cardiac standpoint without any CHF, ongoing angina or significant arrhythmias therefore in stable cardiac state to undergo surgery. - Time Time Spent: 30 to 50 Minutes - CODE STATUS was discussed, patient remains full code. Surrogate decision-maker patient's . Multiple medical problems were addressed. More than 50% of the time spent coordinating care, discussing management plans with involved caregivers. Management plans discussed with involved personnels. Medical decision making was of moderate to high complexity , patient's has multiple comorbidities. Medications reviewed and adjusted accordingly: Yes
[2017-03-10] MEDS ORDERED: ERTAPENEM SODIUM 1 GM in NORMAL SALINE 50 ML IV SCH (21:00)
--- NOTE | 2017-03-10 22:16 | PDOC PROGRESS REPORT ---
Subjective Progress Note for:: 03/10/17 Subjective:: Pains in the right upper quadrant epigastric areas have decreased Physical Exam Vital Signs: Temp Pulse Resp BP Pulse Ox 97.5 F 73 18 127/82 H 97 03/10/17 16:00 03/10/17 16:00 03/10/17 16:00 03/10/17 16:00 03/10/17 16:00 Intake & Output 03/09/17 03/10/17 03/11/17 06:59 06:59 06:59 Intake Total 1115 1800 Output Total 350 1450 Balance 765 350 Weight 122.9 kg Exam: Abdomen is soft with mild tenderness in the epigastric and right upper quadrant areas Results Laboratory Results: 03/10/17 04:29 Total Bilirubin 1.6 H AST 129 H ALT 108 H Alkaline Phosphatase 73 Total Protein 6.2 L Albumin 3.7 Lipase 4504.7 H Impressions: Abdomen Ultrasound 03/09/17 18:00 IMPRESSION: Cholelithiasis. Borderline thickening of the gallbladder wall. Fatty liver. Assessment & Plan - Time Time Spent with patient: 15-24 minutes - Plan Summary Plan Summary: Personal Caregiver has cleared this patient for cholecystectomy. If the LFTs and lipase continued to trend down, patient for possible gallbladder surgery tomorrow. I will talk to Dr. Ames is going to be the incoming surgeon.
[2017-03-11] MEDS: MORPHINE SULFATE 10 MG/ML INJ IV PRN ×6 (02:00→18:59)
[2017-03-11] MEDS: NORMAL SALINE 1000 ML 1,000 ML IV PRN ×2 (02:01→09:02)
[2017-03-11 06:57] LABS: ABSOLUTE EOSINOPHILS # (AUTO) 0.2 10^3/uL (0.0-0.6); ABSOLUTE LYMPHOCYTES (AUTO) 1.7 10^3/uL (0.5-4.7); ABSOLUTE MONOCYTES (AUTO) 0.5 10^3/uL (0.1-1.4); ABSOLUTE NEUT (AUTO) 3.2 10^3/uL (1.7-8.2); BASOPHILS % (AUTO) 0.6 % (0-2); EOSINOPHILS % (AUTO) 4.4 % (0-6); HEMATOCRIT 35.2 % (37.9-51.0); HEMOGLOBIN 12.4 g/dL (13.5-17.0); LYMPHOCYTES % (AUTO) 30.2 % (13-45); MEAN CORPUSCULAR HEMOGLOBIN 31.1 pg (27.0-33.4); MEAN CORPUSCULAR HGB CONC 35.3 g/dL (32.0-36.0); MEAN CORPUSCULAR VOLUME 88 fl (80-97); MONOCYTES % (AUTO) 8.1 % (3-13); RED BLOOD COUNT 3.98 10^6/uL (4.35-5.55); RED CELL DISTRIBUTION WIDTH 13.7 % (11.5-14.0); SEGMENTED NEUTROPHILS % (AUTO) 56.7 % (42-78); WHITE BLOOD COUNT 5.6 10^3/uL (4.0-10.5)
[2017-03-11 07:05] LABS: PROTHROMBIN TIME 14.6 SEC (11.4-15.4)
[2017-03-11 07:09] LABS: ALANINE AMINOTRANSFERASE 73 U/L (21-72); ALBUMIN 3.4 g/dL (3.5-5.0); ALKALINE PHOSPHATASE 65 U/L (38-126); ANION GAP 9 (5-19); ASPARTATE AMINO TRANSFERASE 41 U/L (17-59); BILIRUBIN,DIRECT 0.5 mg/dL (0.0-0.4); BLOOD UREA NITROGEN 10 mg/dL (7-20); CALCIUM 8.7 mg/dL (8.4-10.2); CARBON DIOXIDE 23 mmol/L (22-30); CHLORIDE 109 mmol/L (98-107); GLUCOSE 135 mg/dL (75-110); LIPASE 1508.4 U/L (23-300); POTASSIUM 4.3 mmol/L (3.6-5.0); SODIUM 141.2 mmol/L (137-145); TOTAL PROTEIN 6.1 g/dL (6.3-8.2)
[2017-03-11] MEDS: KETOROLAC TROMETHAMINE INJ/PF 30 MG/1 ML SDV IV PRN ×2 (09:10→16:02)
[2017-03-11] MEDS: ERTAPENEM SODIUM 1 GM in NORMAL SALINE 50 ML IV SCH (09:47)
--- NOTE | 2017-03-11 11:59 | PDOC PROGRESS REPORT ---
Subjective Progress Note for:: 03/11/17 Subjective:: Still having epigastric abdominal pain but has decreased in severity. Patient requests increase in his narcotics. Patient has shelter narcotic dependence. No shortness of breath. Physical Exam Vital Signs: Temp Pulse Resp BP Pulse Ox 97.7 F 74 18 130/68 H 100 03/11/17 08:00 03/11/17 08:00 03/11/17 08:00 03/11/17 08:00 03/11/17 08:00 Intake & Output 03/10/17 03/11/17 03/12/17 06:59 06:59 06:59 Intake Total 1115 4000 Output Total 350 2625 Balance 765 1375 Weight 122.9 kg 125.9 kg General appearance: PRESENT: no acute distress, cooperative Respiratory exam: PRESENT: clear to auscultation debra Cardiovascular exam: PRESENT: RRR GI/Abdominal exam: PRESENT: other - Soft, mildly distended, epigastric abdominal tenderness without peritoneal signs. Results Laboratory Results: 03/11/17 06:29 03/11/17 06:29 03/11/17 03/11/17 06:29 06:29 WBC 5.6 RBC 3.98 L Hgb 12.4 L Hct 35.2 L MCV 88 MCH 31.1 MCHC 35.3 RDW 13.7 Plt Count 142 L Seg Neutrophils % 56.7 Lymphocytes % 30.2 Monocytes % 8.1 Eosinophils % 4.4 Basophils % 0.6 Absolute Neutrophils 3.2 Absolute Lymphocytes 1.7 Absolute Monocytes 0.5 Absolute Eosinophils 0.2 Absolute Basophils 0.0 Sodium 141.2 Potassium 4.3 Chloride 109 H Carbon Dioxide 23 Anion Gap 9 BUN 10 Creatinine 0.50 L Est GFR ( Amer) > 60 Est GFR (Non-Af Amer) > 60 Glucose 135 H Calcium 8.7 Total Bilirubin 1.0 AST 41 ALT 73 H Alkaline Phosphatase 65 Total Protein 6.1 L Albumin 3.4 L Lipase 1508.4 H Impressions: Abdomen Ultrasound 03/09/17 18:00 IMPRESSION: Cholelithiasis. Borderline thickening of the gallbladder wall. Fatty liver. Assessment & Plan - Diagnosis (1) Acute gallstone pancreatitis Is this a current diagnosis for this admission?: Yes Plan: Still with epigastric abdominal tenderness and pain along with still markedly elevated lipase. Need to allow pancreatitis to subside to allow safe laparoscopic cholecystectomy. Keep the patient at bowel rest. Hopefully in the next couple of days he has enough improvement of his pancreatitis to do his laparoscopic cholecystectomy safely. I have had a long conversation with the patient concerning the rationale for waiting and the rationale for surgery. In regards to his narcotics. Patient is getting 4 mg of morphine every 3 hours. Reluctant to increase the morphine without having pain management service involved. Will consult [place] pain management.
[2017-03-11] MEDS: HYDROMORPHONE HCL INJ/PF 2 MG/ML AMPULE IV PRN (22:21)
[2017-03-12] MEDS: HYDROMORPHONE HCL INJ/PF 2 MG/ML AMPULE IV PRN ×6 (01:48→22:50)
[2017-03-12 06:13] LABS: HEMATOCRIT 34.2 % (37.9-51.0); HEMOGLOBIN 11.9 g/dL (13.5-17.0); HGB HCT DIFFERENCE 1.5; MEAN CORPUSCULAR HEMOGLOBIN 30.6 pg (27.0-33.4); MEAN CORPUSCULAR HGB CONC 34.9 g/dL (32.0-36.0); MEAN CORPUSCULAR VOLUME 88 fl (80-97); RED CELL DISTRIBUTION WIDTH 13.4 % (11.5-14.0); WHITE BLOOD COUNT 5.1 10^3/uL (4.0-10.5)
[2017-03-12 06:32] LABS: ALANINE AMINOTRANSFERASE 58 U/L (21-72); ALBUMIN 3.4 g/dL (3.5-5.0); ALKALINE PHOSPHATASE 61 U/L (38-126); ANION GAP 12 (5-19); ASPARTATE AMINO TRANSFERASE 28 U/L (17-59); BILIRUBIN,DIRECT 0.6 mg/dL (0.0-0.4); BILIRUBIN,TOTAL 0.9 mg/dL (0.2-1.3); BLOOD UREA NITROGEN 15 mg/dL (7-20); CALCIUM 8.5 mg/dL (8.4-10.2); CARBON DIOXIDE 20 mmol/L (22-30); CHLORIDE 110 mmol/L (98-107); CREATININE RESULT 0.53 mg/dL (0.52-1.25); GLUCOSE 115 mg/dL (75-110); POTASSIUM 4.4 mmol/L (3.6-5.0); SODIUM 142.2 mmol/L (137-145); TOTAL PROTEIN 5.9 g/dL (6.3-8.2)
[2017-03-12] MEDS: ERTAPENEM SODIUM 1 GM in NORMAL SALINE 50 ML IV SCH (10:56)
--- NOTE | 2017-03-12 11:13 | CONSULTATION REPORT E ---
Consultation Report NAME: CAYETANO SCHMITT : 1950 AGE: 66Y DATE: 03/11/2017 531 A TO: BURT HURST FROM: NIKKI MAYS M.D. Requesting Physician CHIEF COMPLAINT: Abdominal pain. HISTORY OF PRESENT ILLNESS: The patient is a new patient initial consultation that we received from Dr. Ames. Patient is a 66-year-old male presenting for consultation for ogirb-kx-rxeimga pain. He presented to the emergency room initially with complaints of acute onset of abdominal pain of the epigastric region with nausea and no noted vomiting. Noted history of cholelithiasis in the past and had noted active dark stools with anorexia. History of complicated diverticulitis and previous hospitalization about 4 months ago. Upon evaluation with ultrasound, he was diagnosed with acute cholecystitis with cholelithiasis and acute pancreatitis. He has been scheduled for cholecystectomy which is the cause of his abdominal pain. Currently his abdominal pain is being managed with a regimen of morphine 4 mg q.4 hours IV. Patient states that the morphine has been effective for his abdomen, however, has not been very effective for his ongoing chronic lower back pain. Patient has a history of chronic back pain that he has had for several years. Previously was being managed and seen in [place] prior to moving to [place] about a year ago. The pain over the lower back is a constant aching, stabbing type pain. Prior to hospitalization, his pain was being managed with oxycodone 20 mg 2 tablets 4 times daily as needed. Patient has been following his primary care provider who is still based in [place]. He states that he is following up with his primary care every 3 months by traveling back for physical examination as well as refill of medication, at which time he is given 3 separate prescriptions for a 3-month period. The oxycodone has been effective for cutting his lower back pain to a tolerable level prior to hospitalization. He notes that he has been seen locally and given epidural steroid injections without noted relief. He states that he believes he has a herniated disk but his pain presentation has been stable and not changed. He is very cautious regarding changing his medications as his regimen has been effective for him and working for severe years. His biggest fear is that he may not get relief with anything that is changed and may not be able to return to his current dosing. Patient's pain remains to be at the lower back with some bilateral radicular pain intermittently but only noted when it flares. Overall his abdominal pain has been much improved and controlled since he has been n.p.o. and on the morphine, but not getting any relief for the lower back pain with the current regimen of medications. Notes that he is awakening several times throughout the night and during the day. He is getting about an hour worth of relief and states that he spends the next 2 hours watching the clock until his next dose. He denies any side effects. No changes in pain, location, or presentation of the lower back at this time. PAST MEDICAL HISTORY: 1. COPD. 2. Gastroesophageal reflux disease. 3. Diabetes mellitus 2 (uncontrolled). 4. Myocardial infarction: He has undergone a coronary artery bypass graft, العلي to LAD completed robotically. Patient has undergone cardiac catheterization back in the spring in [place]. At that time, he had been notified that there was an element to the left arterial descending branch. It was open and diffuse artery disease. Patient also was noted to have multiple cardiac stents. PAST SURGICAL HISTORY: Robotic coronary arterial bypass graft, bilateral total knee replacement, removal of a "fatty tumor" of the left upper quadrant of the abdomen, right arm tendon repair that was traumatic. SOCIAL HISTORY: Patient lives with his who is suffering from dementia and his daughter. He denies any alcohol or illicit drug use or abuse. He denies any active smoking at this time. FAMILY HISTORY: Significant for coronary artery disease, hypertension, COPD. Patient does have several siblings and children. MEDICATIONS: Patient is currently taking home medications consisting of: 1. Aspirin 325 mg daily. 2. Lipitor 20 mg 1 daily. 3. Invokamet 150/1000 one tablet twice a day. 4. Plavix 75 mg 1 tablet daily. 5. Amaryl 1 tablet twice daily. 6. Soliqua 100 units and 33 mcg/mL pen 60 mL subcutaneous at bedtime. 8. Isosorbide mononitrate extended release 30 mg 1 tablet in the evening. 9. Lisinopril 5 mg daily. 10. Meloxiam 15 mg 1 tablet daily. 11. Metoprolol 25 mg twice daily. 12. Oxycodone immediate release 20 mg 2 tablets 4 times daily. 13. Protonix 40 mg 1 tablet daily. 14. Restoril 30 mg at bedtime p.r.n. 15. Vitamin B complex 1 tablet daily. 16. Vitamin E 1000 units daily. ALLERGIES: No known drug allergies. REVIEW OF SYSTEMS: CONSTITUTIONAL: Denies any headaches, fevers, chills, weight gain, weight loss. EYES: No blurry vision, changes in visual field. EARS: Denies any changes in hearing loss or ringing. CARDIOVASCULAR: Denies any chest pain or tightness. RESPIRATORY: Denies any shortness of breath, wheezing, or dyspnea. GASTROINTESTINAL: Epigastric pain but mild today. No noted vomiting. MUSCULOSKELETAL: Continued chronic lower back pain. NEUROLOGICAL: Denies any abnormal gait, abnormal speech, confusion, focal weakness, syncope. ENDOCRINE: Denies any polydipsia, polyphagia, or changes in weight. PSYCHIATRIC: Denies any anxiety, depression, homicidal or suicidal ideations at this time. PHYSICAL EXAMINATION: VITAL SIGNS: Temperature 98 degrees, pulse 67, respirations 18, blood pressure 128/77, pulse ox 98% on room air. GENERAL APPEARANCE: The patient is sitting on the side of the bed talking to family without any complication issues. Distress noted with movement in certain directions. Noted has a sharp stabbing pain. HEAD: Normocephalic. EYES: PERRLA. NOSE: Patent and passing air without any issues or complications. EARS: Normal hearing noted on exam. MOUTH: No oral lesions, masses, dry mucosa. NECK: Full range of motion. Trachea midline. No goiters, masses, lesions. RESPIRATORY: Clear to auscultation bilaterally. CARDIOVASCULAR: Regular rate and rhythm. PULSES: Noted 1+ pedal pulse bilaterally. GASTROINTESTINAL/ABDOMEN: Noted minor tenderness to palpation in the right upper quadrant and epigastric region. No noted guarding or rebound on exam today. No noted organomegaly. Positive decreased bowel sounds x4. Noted postsurgical scarring of the left upper quadrant from previous surgical intervention. EXTREMITIES: Noted full range of motion. No cyanosis, edema, swelling at this time. CERVICAL SPINE: Noted full range of motion with minor pain with rotation to left and right. Spurling's is negative. Noted some minor tenderness to palpation of the left paravertebral musculature. LUMBAR SPINE: Positive pain with flexion and extension. Noted tenderness to palpation at L3, 4, 5, S1 region. Straight leg raises are negative. MESERET is negative. No lesions or masses. NEUROLOGICAL: The patient is alert and oriented x3. Motor is 5/5 in the bilateral upper and lower extremities. Reflexes are normal in upper and lower extremities. No noted clonus on exam. PSYCHIATRIC: No noted depression. Patient is laughing and joking during the visit. Noticed some minor anxiety, especially when discussing changes of medications. RADIOLOGICAL FINDINGS: Abdominal ultrasound completed on 03/09/17 noted cholelithiasis with borderline thickness of the gallbladder wall as well as a fatty liver. ASSESSMENT: 1. Cholelithiasis. 2. Chronic lower back pain. 3. Zxmtr-kh-gaaeuzs pain. 4. Coronary artery disease. 5. Diabetes mellitus. PLAN: Today the patient presents with ljceh-qd-bxfnzzw pain with incomplete coverage for pain control for his lower back. Patient noted with dependence and prior to hospitalization with high opioid use for chronic lower back pain. At this point, recommendation is to rotate the morphine to Dilaudid 1 mg every 4 hours as noted. This is a 50% reduction with consideration for escalation over the next 24 hours until surgery is scheduled and for continued management of postsurgical pain. Prior to hospitalization, patient was noted to be getting about 240 mEq of morphine from his primary care provider. Long discussion with patient, , and daughter regarding concerns for high opioid dose and use and that escalation beyond this current dosing would not be recommended, especially in the presence of other comorbid conditions. Discussed pre and post surgical pain and rotation of medications. Will recommend taper back to baseline of p.o. medications after surgical intervention. For now we will continue to adjust medication accordingly. We will continue to follow patient as needed for management of inpatient pain control. IT want to thank you for the opportunity to share in the care of this particular patient. Please feel free to contact us with any further questions, concerns or needed adjustments. DICTATING PHYSICIAN: BURT HURST [id number] PHY#: [id number] ID: [id number] JOB#: [id number] ACCT: [id number] cc:AMOL JADE >
[2017-03-12] MEDS: NORMAL SALINE 1000 ML 1,000 ML IV PRN (17:44)
--- NOTE | 2017-03-12 17:55 | PDOC PROGRESS REPORT ---
Subjective Progress Note for:: 03/12/17 Subjective:: Denies any more abdominal pains Physical Exam Vital Signs: Temp Pulse Resp BP Pulse Ox 98.1 F 75 18 156/74 H 100 03/12/17 16:00 03/12/17 16:00 03/12/17 16:00 03/12/17 16:00 03/12/17 16:00 Intake & Output 03/11/17 03/12/17 03/13/17 06:59 06:59 06:59 Intake Total 4000 6363 Output Total 2625 1675 Balance 1375 4688 Weight 125.9 kg 125.5 kg Exam: Abdomen is soft and nontender Results Laboratory Results: 03/12/17 04:53 03/12/17 04:53 03/12/17 03/12/17 04:53 04:53 WBC 5.1 RBC 3.90 L Hgb 11.9 L Hct 34.2 L MCV 88 MCH 30.6 MCHC 34.9 RDW 13.4 Plt Count 149 L Sodium 142.2 Potassium 4.4 Chloride 110 H Carbon Dioxide 20 L Anion Gap 12 BUN 15 Creatinine 0.53 Est GFR ( Amer) > 60 Est GFR (Non-Af Amer) > 60 Glucose 115 H Calcium 8.5 Total Bilirubin 0.9 AST 28 ALT 58 Alkaline Phosphatase 61 Total Protein 5.9 L Albumin 3.4 L Lipase 822.0 H Impressions: Abdomen Ultrasound 03/09/17 18:00 IMPRESSION: Cholelithiasis. Borderline thickening of the gallbladder wall. Fatty liver. Assessment & Plan - Time Time Spent with patient: 15-24 minutes - Plan Summary Plan Summary: Recheck patient's lipase these in the morning. Possible laparoscopic cholecystectomy tomorrow if the lipase continues to trend down. This is about the 72 hours off Plavix. Tomorrow will be the fourth day. I explained the risk of bleeding since he has been off of Plavix for about 4 days by tomorrow. He wants to have the surgery done soon so he can go back to care for his for his who is starting to have some dementia
[2017-03-12] MEDS: KETOROLAC TROMETHAMINE INJ/PF 30 MG/1 ML SDV IV PRN (18:49)
[2017-03-13] MEDS: HYDROMORPHONE HCL INJ/PF 2 MG/ML AMPULE IV PRN ×6 (01:44→23:38)
[2017-03-13 06:20] LABS: ABSOLUTE EOSINOPHILS # (AUTO) 0.2 10^3/uL (0.0-0.6); ABSOLUTE LYMPHOCYTES (AUTO) 1.9 10^3/uL (0.5-4.7); ABSOLUTE MONOCYTES (AUTO) 0.4 10^3/uL (0.1-1.4); ABSOLUTE NEUT (AUTO) 2.3 10^3/uL (1.7-8.2); BASOPHILS % (AUTO) 0.8 % (0-2); HEMATOCRIT 34.7 % (37.9-51.0); HEMOGLOBIN 12.4 g/dL (13.5-17.0); HGB HCT DIFFERENCE 2.5; MEAN CORPUSCULAR HEMOGLOBIN 31.2 pg (27.0-33.4); MEAN CORPUSCULAR HGB CONC 35.9 g/dL (32.0-36.0); MEAN CORPUSCULAR VOLUME 87 fl (80-97); MONOCYTES % (AUTO) 8.4 % (3-13); RED BLOOD COUNT 3.99 10^6/uL (4.35-5.55); RED CELL DISTRIBUTION WIDTH 13.7 % (11.5-14.0); SEGMENTED NEUTROPHILS % (AUTO) 47.8 % (42-78); WHITE BLOOD COUNT 4.8 10^3/uL (4.0-10.5)
[2017-03-13 06:31] LABS: PROTHROMBIN TIME 15.6 SEC (11.4-15.4)
[2017-03-13 06:44] LABS: ALANINE AMINOTRANSFERASE 49 U/L (21-72); ALBUMIN 3.7 g/dL (3.5-5.0); ALKALINE PHOSPHATASE 57 U/L (38-126); ASPARTATE AMINO TRANSFERASE 24 U/L (17-59); BILIRUBIN,DIRECT 0.6 mg/dL (0.0-0.4); BILIRUBIN,TOTAL 1.1 mg/dL (0.2-1.3); LIPASE 729.9 U/L (23-300); TOTAL PROTEIN 6.2 g/dL (6.3-8.2)
[2017-03-13] MEDS ORDERED: NORMAL SALINE 250 ML IV PRN (06:51)
[2017-03-13] MEDS ORDERED: HYDROMORPHONE HCL INJ/PF 2 MG/ML AMPULE ONE (06:53)
[2017-03-13] MEDS ORDERED: FENTANYL CITRATE INJ/PF 100 MCG/2 ML AMPUL ONE (06:53)
[2017-03-13] MEDS ORDERED: ACETAMINOPHEN 100 ML IV ONE (06:54)
[2017-03-13] MEDS ORDERED: MIDAZOLAM 2 MG/2 ML INJ ONE (06:54)
[2017-03-13] MEDS ORDERED: PROPOFOL INJ 200 MG/20 ML VIAL IV ONE (06:54)
[2017-03-13] MEDS ORDERED: BUPIVACAINE HCL 0.25 % INJ/PF (2.5 MG/1 ML) 30 ML VIAL ONE (07:11)
[2017-03-13] MEDS ORDERED: KETAMINE HCL INJ 500 MG/10 ML VIAL ONE (07:38)
[2017-03-13] MEDS ORDERED: EPHEDRINE SULFATE INJ 50 MG/1 ML AMPULE ONE (07:39)
[2017-03-13 07:48] LABS: ANION GAP 11 (5-19); BLOOD UREA NITROGEN 11 mg/dL (7-20); CALCIUM 8.7 mg/dL (8.4-10.2); CARBON DIOXIDE 22 mmol/L (22-30); CHLORIDE 109 mmol/L (98-107); CREATININE RESULT 0.57 mg/dL (0.52-1.25); GLUCOSE 134 mg/dL (75-110); POTASSIUM 3.9 mmol/L (3.6-5.0); SODIUM 142.4 mmol/L (137-145)
[2017-03-13] MEDS ORDERED: MORPHINE SULFATE 10 MG/ML INJ IV PRN (08:50)
[2017-03-13] MEDS ORDERED: DIPHENHYDRAMINE HCL 50 MG/ML VIAL IV PRN (08:50)
[2017-03-13] MEDS ORDERED: FENTANYL CITRATE INJ/PF 100 MCG/2 ML AMPUL IV PRN ×3 (08:50)
[2017-03-13] MEDS ORDERED: PROMETHAZINE HCL INJ 25 MG/1 ML VIAL IV PRN (08:50)
--- NOTE | 2017-03-13 09:47 | RADIOLOGY REPORT (SQ) ---
EXAM DESCRIPTION: CHOLANGIOGRAM OPERATIVE COMPLETED DATE/TIME: 03/13/2017 9:36 am REASON FOR STUDY: CHOLANGIOGRAM ASSISTED W/ FLUORO IN OR COMPARISON: Right upper quadrant ultrasound 11/23/2016, 03/09/2017 CT abdomen pelvis 11/24/2016 FLUOROSCOPY TIME: 0.1 minutes 5 digital C-arm images saved to PACS. TECHNIQUE: Cinegraphic images were obtained from an intraoperative cholangiogram. LIMITATIONS: None. FINDINGS: There is opacification of the bile ducts, cystic duct remnants and second portion of the d uodenum without evidence of fixed filling defect or significant extravasation. IMPRESSION: INTRAOPERATIVE CHOLANGIOGRAM. COMMENT: Quality ID [id number]: Final reports for procedures using fluoroscopy that document radiation exp osure indices, or exposure time and number of fluorographic images (if radiation exposure indices are not available) TECHNICAL DOCUMENTATION: JOB ID: [id number] [place]. com. cn- All Rights Reserved
[2017-03-13] MEDS: FENTANYL CITRATE INJ/PF 100 MCG/2 ML AMPUL ONE ×2 (10:12→10:17)
[2017-03-13] MEDS ORDERED: OXYCODONE-ACETAMINOPHEN 5-325 MG TABLET PO PRN (10:28)
[2017-03-13] MEDS ORDERED: METOPROLOL TARTRATE PF/INJ 5 MG/5 ML SDV IV ONE (10:30)
--- NOTE | 2017-03-13 10:32 | OPERATIVE REPORT E ---
Operative Report NAME: CAYETANO SCHMITT : 1950 AGE: 66Y DATE OF SURGERY: 03/13/2017 ROOM: 531 PREOPERATIVE DIAGNOSIS: Acute cholecystitis, gallstone pancreatitis and elevated LFTs. POSTOPERATIVE DIAGNOSIS: Acute cholecystitis, gallstone pancreatitis and elevated LFTs. PROCEDURE: Laparoscopic cholecystectomy, intraoperative cholangiogram. SURGEON: CHIOMA DORSEY M.D. ANESTHESIA: General. INDICATION: This is a 66-year-old male complaining of right upper quadrant pains and noted elevated lipase and LFTs. Ultrasound of the gallbladder showed gallstones. He also had his Plavix about 4 days ago. His enzymes and LFTs gradually came down to almost normal with a lipase this morning around 600. Also, he has been almost asymptomatic for the past 24 hours. DESCRIPTION OF PROCEDURE: After adequate general anesthesia, the patient was placed in supine position and the abdomen prepped and draped in the usual sterile fashion. Appropriate timeout was called. Next, an infraumbilical incision made and the fascia identified and divided between 2 Robson clamps. A Shane trocar was then inserted through the fascia into the abdominal cavity. CO2 insufflated to 15 mm pressure. Next, 3 other trocars were placed, a 12 mm in the subxiphoid to the right and two 5 mm in the right upper quadrant. The gallbladder was then identified and noted to be quite tense. However, I was able to put the grasper at the fundus, but pulling the gallbladder over the liver, it opened up and some bile extruded out. The gloves were then repositioned to clamp the area that was perforated. Next, another clamp placed at the infundibulum and the cystic duct then dissected from the clip close to the gallbladder. A small incision made just below the clip in the cystic duct. A cholangiocatheter was then inserted into the cystic duct and clipped. A cholangiogram was then performed and noted no obvious stones in the common bile duct. The common bile duct tapered nicely into the duodenum and *------* duodenum. Next, the Cholangiocath was removed and cystic duct proximally was then clipped 3 times with Hemoclips and divided between the distal clips. Cystic artery was then dissected and clipped proximally and divided and cauterized with Harmonic brooklynn. The gallbladder was then taken off the liver bed with the use of Harmonic brooklynn. No evidence of excessive bleeding was noted and all the bleeders were controlled with the Harmonic. Gallbladder was then placed in an Endobag and pulled out through the umbilical port. The trocar was put back into the umbilical area and the gallbladder bed irrigated copiously with saline solution. Again, no evidence of bleeding from the cystic duct area. Following this, all the trocars were removed and CO2 allowed to come out of the trocar sites. The fascial defect at the infraumbilical area was then closed with a figure of eight suture using 0 Vicryl. The subcu at the infraumbilical area was further irrigated with saline because there is a small spill of bile at this site. Also, the bile from the gallbladder was sent for C and S. Following this, all the incision sites were closed with running subcuticular closure using 4-0 Vicryl undyed. Sterile Dermabond dressing was used at all the incision sites. Patient tolerated procedure well. Needle, instrument, and sponge count were all correct, and estimated blood loss at 10 mL. DICTATING PHYSICIAN: CHIOMA DORSEY M.D. [id number] PHY#: [id number] ID: [id number] JOB#: [id number] ACCT: [id number] cc:CHIOMA DORSEY M.D. >
[2017-03-13] MEDS: HYDROMORPHONE HCL INJ/PF 2 MG/ML AMPULE ONE ×2 (10:35→11:03)
[2017-03-13] MEDS: ERTAPENEM SODIUM 1 GM in NORMAL SALINE 50 ML IV SCH ×2 (12:21→17:28)
[2017-03-13] MEDS ORDERED: DEXAMETHASONE SOD PHOSPHATE INJ 4 MG/1 ML VIAL ONE (14:15)
[2017-03-13] MEDS ORDERED: ONDANSETRON HCL INJ/PF 4 MG/2 ML SDV ONE (14:15)
[2017-03-13] MEDS ORDERED: ROCURONIUM BROMIDE INJ 50 MG/5 ML VIAL IV ONE (14:15)
[2017-03-13] MEDS ORDERED: SUCCINYLCHOLINE CHLORIDE INJ 200 MG/10 ML VIAL ONE (14:15)
[2017-03-13] MEDS ORDERED: LIDOCAINE 2% INJ-PF (20 MG/ML) 10 ML AMPUL ONE (14:15)
[2017-03-13] MEDS ORDERED: NEOSTIGMINE METHYLSULFATE 10 MG/10 ML VIAL ONE (14:15)
[2017-03-13] MEDS ORDERED: GLYCOPYRROLATE INJ 0.4 MG/2 ML VIAL ONE (14:15)
--- NOTE | 2017-03-13 19:23 | PDOC PROGRESS REPORT ---
Subjective Progress Note for:: 03/11/17 Subjective:: Patient seems to be doing better with gradual improvement. Pt is denying any chest arm or neck discomfort. Patient denying any PND, orthopnea. Patient denied any sustained palpitations, dizziness, syncope, near syncope. Patient denying any fever chills. Patient denying any other significant discomfort. Patient is maintaining sinus rhythm. Lipase is coming down. Abdomen is softer. Review of systems: Rest review of systems negative. Medications: Medications have been reviewed. Physical Exam Vital Signs: Temp Pulse Resp BP Pulse Ox 98.3 F 79 18 141/81 H 98 03/11/17 16:00 03/11/17 16:00 03/11/17 16:00 03/11/17 16:00 03/11/17 16:00 Intake & Output 03/10/17 03/11/17 03/12/17 06:59 06:59 06:59 Intake Total 1115 4000 1400 Output Total 350 2625 1200 Balance 765 1375 200 Weight 122.9 kg 125.9 kg Exam: GENERAL: well-nourished and in no acute distress. Alert and oriented x3 HEAD: Atraumatic, normocephalic. EYES: Pupils equal round and reactive to light, extraocular movements intact, sclera anicteric, conjunctiva are normal. ENT: TMs normal, nares patent, oropharynx clear without exudates. Moist mucous membranes. No oral ulcerations or bleeding gums noted NECK: supple without lymphadenopathy. Trachea is central. No cervical or axillary lymphadenopathy noted. Carotids are 2+, JVD WNL LUNGS: Respiration seems nonlabored, no significant accessory muscle action noted. Breath sounds clear to auscultation bilaterally and equal noted. No wheezes rales or rhonchi noted. No significant dullness noted on percussion. CHEST: Palpation of the chest wall shows no significant chest wall tenderness. No other significant abnormalities noted. 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 ABDOMEN: Soft, mild epigastric tenderness appreciated, normoactive bowel sounds. No guarding, no rebound. No rigidity noted . No masses appreciated. EXTREMITIES: Pedal pulses are 1-2+, no calf tenderness noted. No clubbing or cyanosis.trace to 1+ pedal edema noted NEUROLOGICAL: Focused neurological exam showed no significant neurologic deficit. Normal speech, no focal weakness appreciated. PSYCH: Normal mood, normal affect. Judgment and insight within normal limits. SKIN: No significant ecchymosis, rash, ulcerations or signs of pruritus noted. MUSCULOSKELETAL EXAM: No significant joint swelling noted. Results Laboratory Results: 03/11/17 06:29 03/11/17 06:29 03/11/17 03/11/17 06:29 06:29 WBC 5.6 RBC 3.98 L Hgb 12.4 L Hct 35.2 L MCV 88 MCH 31.1 MCHC 35.3 RDW 13.7 Plt Count 142 L Seg Neutrophils % 56.7 Lymphocytes % 30.2 Monocytes % 8.1 Eosinophils % 4.4 Basophils % 0.6 Absolute Neutrophils 3.2 Absolute Lymphocytes 1.7 Absolute Monocytes 0.5 Absolute Eosinophils 0.2 Absolute Basophils 0.0 Sodium 141.2 Potassium 4.3 Chloride 109 H Carbon Dioxide 23 Anion Gap 9 BUN 10 Creatinine 0.50 L Est GFR ( Amer) > 60 Est GFR (Non-Af Amer) > 60 Glucose 135 H Calcium 8.7 Total Bilirubin 1.0 AST 41 ALT 73 H Alkaline Phosphatase 65 Total Protein 6.1 L Albumin 3.4 L Lipase 1508.4 H Impressions: Abdomen Ultrasound 03/09/17 18:00 IMPRESSION: Cholelithiasis. Borderline thickening of the gallbladder wall. Fatty liver. Assessment & Plan - Diagnosis (1) Coronary artery disease Is this a current diagnosis for this admission?: Yes (2) Diabetes mellitus Qualifiers: Diabetes mellitus type: type 2 Diabetes mellitus complication status: with unspecified complications Diabetes mellitus care home insulin use: unspecified sql bi developer insulin use status Qualified Code(s): E11.8 - Type 2 diabetes mellitus with unspecified complications Is this a current diagnosis for this admission?: Yes (3) Pancreatitis Qualifiers: Chronicity: acute Is this a current diagnosis for this admission?: Yes (4) Cholelithiasis Qualifiers: Cholelithiasis location: gallbladder Cholecystitis acuity: unspecified acuity Is this a current diagnosis for this admission?: Yes (5) Obesity Qualifiers: Obesity classification: unspecified obesity classification Is this a current diagnosis for this admission?: Yes (6) Sleep apnea syndrome Qualifiers: Sleep apnea type: unspecified type Qualified Code(s): G47.30 - Sleep apnea , unspecified Is this a current diagnosis for this admission?: Yes - Notes Notes: Coronary artery disease: Symptomatically stable. Patient now off Plavix. Diabetes: Under satisfactory control. Pancreatitis: Most likely related to gallstones. Improving Cholelithiasis: Patient to undergo gallbladder surgery. Timing to be decided by surgeons. Obesity: Patient encouraged in weight loss. Discussed association of pancreatitis and gallstones with obesity. Sleep apnea syndrome: Patient describes history of sleep apnea syndrome but currently not on CPAP therapy. Discussed side effects of untreated sleep apnea. - Time Time with patient: 15-25 minutes
--- NOTE | 2017-03-13 19:26 | PDOC PROGRESS REPORT ---
Subjective Progress Note for:: 03/12/17 Subjective:: Patient seems to be doing better with gradual improvement. Pt is denying any chest arm or neck discomfort. Patient denying any PND, orthopnea. Patient denied any sustained palpitations, dizziness, syncope, near syncope. Patient denying any fever chills. Patient denying any other significant discomfort. Patient is maintaining sinus rhythm. Lipase is coming down. Abdomen is softer. Review of systems: Rest review of systems negative. Medications: Medications have been reviewed. Physical Exam Vital Signs: Temp Pulse Resp BP Pulse Ox 98.1 F 75 18 156/74 H 100 03/12/17 16:00 03/12/17 16:00 03/12/17 16:00 03/12/17 16:00 03/12/17 16:00 Intake & Output 03/11/17 03/12/17 03/13/17 06:59 06:59 06:59 Intake Total 4000 6363 2480 Output Total 2625 1675 2015 Balance 1375 4688 465 Weight 125.9 kg 125.5 kg Exam: GENERAL: well-nourished and in no acute distress. Alert and oriented x3 HEAD: Atraumatic, normocephalic. EYES: Pupils equal round and reactive to light, extraocular movements intact, sclera anicteric, conjunctiva are normal. ENT: TMs normal, nares patent, oropharynx clear without exudates. Moist mucous membranes. No oral ulcerations or bleeding gums noted NECK: supple without lymphadenopathy. Trachea is central. No cervical or axillary lymphadenopathy noted. Carotids are 2+, JVD WNL LUNGS: Respiration seems nonlabored, no significant accessory muscle action noted. Breath sounds clear to auscultation bilaterally and equal noted. No wheezes rales or rhonchi noted. No significant dullness noted on percussion. CHEST: Palpation of the chest wall shows no significant chest wall tenderness. No other significant abnormalities noted. 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 ABDOMEN: Soft, minimal epigastric tenderness appreciated, normoactive bowel sounds. No guarding, no rebound. No rigidity noted . No masses appreciated. EXTREMITIES: Pedal pulses are 1-2+, no calf tenderness noted. No clubbing or cyanosis.trace pedal edema noted NEUROLOGICAL: Focused neurological exam showed no significant neurologic deficit. Normal speech, no focal weakness appreciated. PSYCH: Normal mood, normal affect. Judgment and insight within normal limits. SKIN: No significant ecchymosis, rash, ulcerations or signs of pruritus noted. MUSCULOSKELETAL EXAM: No significant joint swelling noted. Results Laboratory Results: 03/12/17 04:53 03/12/17 04:53 03/12/17 03/12/17 04:53 04:53 WBC 5.1 RBC 3.90 L Hgb 11.9 L Hct 34.2 L MCV 88 MCH 30.6 MCHC 34.9 RDW 13.4 Plt Count 149 L Sodium 142.2 Potassium 4.4 Chloride 110 H Carbon Dioxide 20 L Anion Gap 12 BUN 15 Creatinine 0.53 Est GFR ( Amer) > 60 Est GFR (Non-Af Amer) > 60 Glucose 115 H Calcium 8.5 Total Bilirubin 0.9 AST 28 ALT 58 Alkaline Phosphatase 61 Total Protein 5.9 L Albumin 3.4 L Lipase 822.0 H Impressions: Abdomen Ultrasound 03/09/17 18:00 IMPRESSION: Cholelithiasis. Borderline thickening of the gallbladder wall. Fatty liver. 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 Qualified Code(s): E11.8 - Type 2 diabetes mellitus with unspecified complications Is this a current diagnosis for this admission?: Yes (3) Pancreatitis Qualifiers: Chronicity: acute Is this a current diagnosis for this admission?: Yes (4) Cholelithiasis Qualifiers: Cholelithiasis location: gallbladder Cholecystitis acuity: unspecified acuity Is this a current diagnosis for this admission?: Yes (5) Obesity Qualifiers: Obesity classification: unspecified obesity classification Is this a current diagnosis for this admission?: Yes (6) Sleep apnea syndrome Qualifiers: Sleep apnea type: unspecified type Qualified Code(s): G47.30 - Sleep apnea , unspecified Is this a current diagnosis for this admission?: Yes - Notes Notes: Coronary artery disease: Symptomatically stable. Patient now off Plavix for several days. Patient might go for surgery tomorrow. Patient had no chest pains therefore still remains cleared for surgery. Diabetes: Under satisfactory control. Pancreatitis: Most likely related to gallstones. Improving Cholelithiasis: Patient to undergo gallbladder surgery. Timing to be decided by surgeons. Obesity: Patient encouraged in weight loss. Discussed association of pancreatitis and gallstones with obesity. Sleep apnea syndrome: Patient describes history of sleep apnea syndrome but currently not on CPAP therapy. Discussed side effects of untreated sleep apnea. - Time Time with patient: 15-25 minutes - CODE STATUS was discussed, patient remains full code. Surrogate decision-maker unchanged. Multiple medical problems were addressed. More than 50% of the time spent coordinating care, discussing management plans with involved caregivers. Management plans discussed with involved personnels. Medical decision making was of moderate to high complexity , patient's has multiple comorbidities.
--- NOTE | 2017-03-13 19:29 | PDOC PROGRESS REPORT ---
Subjective Progress Note for:: 03/13/17 Subjective:: Patient had surgery early this morning. He tolerated clear liquid this afternoon and now currently on solid food.. Patient denying any PND, orthopnea. Patient denied any sustained palpitations, dizziness, syncope, near syncope. Patient denying any fever chills. Patient denying any other significant discomfort. Patient is maintaining sinus rhythm. Patient denied any other complaints. Review of systems: Rest review of systems negative. Medications: Medications have been reviewed. Physical Exam Vital Signs: Temp Pulse Resp BP Pulse Ox 97.7 F 75 18 135/74 H 94 03/13/17 16:00 03/13/17 16:00 03/13/17 16:00 03/13/17 16:00 03/13/17 16:00 Intake & Output 03/12/17 03/13/17 03/14/17 06:59 06:59 06:59 Intake Total 6363 5665 4450 Output Total 1675 2640 1895 Balance 4688 3025 2555 Weight 125.5 kg 120.8 kg Exam: GENERAL: well-nourished and in no acute distress. Alert and oriented x3 HEAD: Atraumatic, normocephalic. EYES: Pupils equal round and reactive to light, extraocular movements intact, sclera anicteric, conjunctiva are normal. ENT: TMs normal, nares patent, oropharynx clear without exudates. Moist mucous membranes. No oral ulcerations or bleeding gums noted NECK: supple without lymphadenopathy. Trachea is central. No cervical or axillary lymphadenopathy noted. Carotids are 2+, JVD WNL LUNGS: Respiration seems nonlabored, no significant accessory muscle action noted. Breath sounds clear to auscultation bilaterally and equal noted. No wheezes rales or rhonchi noted. No significant dullness noted on percussion. CHEST: Palpation of the chest wall shows no significant chest wall tenderness. No other significant abnormalities noted. 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 ABDOMEN: Soft, mild post surgical tenderness appreciated, normoactive bowel sounds. No guarding, no rebound. No rigidity noted . No masses appreciated. EXTREMITIES: Pedal pulses are 1-2+, no calf tenderness noted. No clubbing or cyanosis. Negative pedal edema noted NEUROLOGICAL: Focused neurological exam showed no significant neurologic deficit. Normal speech, no focal weakness appreciated. PSYCH: Normal mood, normal affect. Judgment and insight within normal limits. SKIN: No significant ecchymosis, rash, ulcerations or signs of pruritus noted. MUSCULOSKELETAL EXAM: No significant joint swelling noted. Results Laboratory Results: 03/13/17 05:51 03/13/17 05:51 03/13/17 03/13/17 03/13/17 05:51 05:51 05:51 WBC 4.8 RBC 3.99 L Hgb 12.4 L Hct 34.7 L MCV 87 MCH 31.2 MCHC 35.9 RDW 13.7 Plt Count 167 Seg Neutrophils % 47.8 Lymphocytes % 39.0 Monocytes % 8.4 Eosinophils % 4.0 Basophils % 0.8 Absolute Neutrophils 2.3 Absolute Lymphocytes 1.9 Absolute Monocytes 0.4 Absolute Eosinophils 0.2 Absolute Basophils 0.0 Sodium 142.4 Potassium 3.9 Chloride 109 H Carbon Dioxide 22 Anion Gap 11 BUN 11 Creatinine 0.57 Est GFR ( Amer) > 60 Est GFR (Non-Af Amer) > 60 Glucose 134 H Calcium 8.7 Total Bilirubin 1.1 AST 24 ALT 49 Alkaline Phosphatase 57 Total Protein 6.2 L Albumin 3.7 Lipase 729.9 H Blood Type Antibody Screen 03/13/17 06:57 WBC RBC Hgb Hct MCV MCH MCHC RDW Plt Count Seg Neutrophils % Lymphocytes % Monocytes % Eosinophils % Basophils % Absolute Neutrophils Absolute Lymphocytes Absolute Monocytes Absolute Eosinophils Absolute Basophils Sodium Potassium Chloride Carbon Dioxide Anion Gap BUN Creatinine Est GFR ( Amer) Est GFR (Non-Af Amer) Glucose Calcium Total Bilirubin AST ALT Alkaline Phosphatase Total Protein Albumin Lipase Blood Type A POSITIVE Antibody Screen NEGATIVE EKG Comments: Shows sinus rhythm without any sustained tachycardia or bradycardia arrhythmias. Impressions: Abdomen Ultrasound 03/09/17 18:00 IMPRESSION: Cholelithiasis. Borderline thickening of the gallbladder wall. Fatty liver. Cholangiogram 03/13/17 00:00 IMPRESSION: INTRAOPERATIVE CHOLANGIOGRAM. 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 Qualified Code(s): E11.8 - Type 2 diabetes mellitus with unspecified complications Is this a current diagnosis for this admission?: Yes (3) Pancreatitis Qualifiers: Chronicity: acute Is this a current diagnosis for this admission?: Yes (4) Cholelithiasis Qualifiers: Cholelithiasis location: gallbladder Cholecystitis acuity: unspecified acuity Is this a current diagnosis for this admission?: Yes (5) Obesity Qualifiers: Obesity classification: unspecified obesity classification Is this a current diagnosis for this admission?: Yes (6) Sleep apnea syndrome Qualifiers: Sleep apnea type: unspecified type Qualified Code(s): G47.30 - Sleep apnea , unspecified Is this a current diagnosis for this admission?: Yes - Notes Notes: Patient is postop. He did fine. He denied any complications. As regards coronary artery disease he has been a stable. Patient is status post cholecystectomy. Discussed risk factor modification with the patient. Patient would benefit from regular walking program weight loss. Patient's in the room. It seems patient has started to snore very loudly again and does have witnessed apnea. Patient advised to resume CPAP use. Patient can follow-up with me in that regard if he wishes. It seems patient had difficulty with CPAP use in the past. Recommend resume aspirin and Plavix when feasible from surgical standpoint. Will sign off since patient has been stable from cardiac standpoint and is postop and had no postop cardiac complications. - Time Time with patient: 15-25 minutes - CODE STATUS was discussed, patient remains full code. Surrogate decision-maker unchanged. Multiple medical problems were addressed. More than 50% of the time spent coordinating care, discussing management plans with involved caregivers. Management plans discussed with involved personnels. Medical decision making was of moderate to high complexity , patient's has multiple comorbidities. Medications reviewed and adjusted accordingly: Yes
[2017-03-13] MEDS: NORMAL SALINE 1000 ML 1,000 ML IV PRN (19:57)
[2017-03-14] MEDS: NORMAL SALINE 1000 ML 1,000 ML IV PRN (02:26)
[2017-03-14] MEDS: HYDROMORPHONE HCL INJ/PF 2 MG/ML AMPULE IV PRN ×3 (02:27→08:53)
[2017-03-14 04:54] LABS: ABSOLUTE LYMPHOCYTES (AUTO) 1.6 10^3/uL (0.5-4.7); ABSOLUTE MONOCYTES (AUTO) 0.6 10^3/uL (0.1-1.4); ABSOLUTE NEUT (AUTO) 5.9 10^3/uL (1.7-8.2); BASOPHILS % (AUTO) 0.6 % (0-2); EOSINOPHILS % (AUTO) 0.5 % (0-6); HEMATOCRIT 32.8 % (37.9-51.0); HEMOGLOBIN 11.8 g/dL (13.5-17.0); HGB HCT DIFFERENCE 2.6; LYMPHOCYTES % (AUTO) 19.9 % (13-45); MEAN CORPUSCULAR HEMOGLOBIN 31.2 pg (27.0-33.4); MEAN CORPUSCULAR VOLUME 87 fl (80-97); MONOCYTES % (AUTO) 7.8 % (3-13); RED BLOOD COUNT 3.79 10^6/uL (4.35-5.55); RED CELL DISTRIBUTION WIDTH 13.3 % (11.5-14.0); SEGMENTED NEUTROPHILS % (AUTO) 71.2 % (42-78); WHITE BLOOD COUNT 8.3 10^3/uL (4.0-10.5)
[2017-03-14 05:15] LABS: ALANINE AMINOTRANSFERASE 44 U/L (21-72); ALBUMIN 3.4 g/dL (3.5-5.0); ALKALINE PHOSPHATASE 55 U/L (38-126); ANION GAP 11 (5-19); ASPARTATE AMINO TRANSFERASE 23 U/L (17-59); BILIRUBIN,DIRECT 0.5 mg/dL (0.0-0.4); BILIRUBIN,TOTAL 0.8 mg/dL (0.2-1.3); BLOOD UREA NITROGEN 11 mg/dL (7-20); CALCIUM 8.9 mg/dL (8.4-10.2); CARBON DIOXIDE 22 mmol/L (22-30); CHLORIDE 108 mmol/L (98-107); CREATININE RESULT 0.59 mg/dL (0.52-1.25); GLUCOSE 244 mg/dL (75-110); LIPASE 396.2 U/L (23-300); POTASSIUM 4.2 mmol/L (3.6-5.0); SODIUM 141.2 mmol/L (137-145); TOTAL PROTEIN 5.8 g/dL (6.3-8.2)
--- NOTE | 2017-03-14 08:08 | DISCHARGE SUMMARY E ---
Discharge Summary NAME: CAYETANO SCHMITT : 1950 AGE: 66Y ADMITTED: 03/09/2017 DISCHARGED: 03/14/2017 FINAL DIAGNOSES: 1. ACUTE CHOLECYSTIS. 2. CHOLELITHIASIS. 3. GALLSTONE PANCREATITIS. 4. ELEVATED LIVER FUNCTION TESTS. PROCEDURE: Laparoscopic cholecystectomy with intraoperative cholangiogram 03/13/2017, surgeon Dr. Coats. SUMMARY: This is a 66-year-old male, who complained of abdominal pains and subsequently admitted with cholelithiasis, acute cholecystitis, gallstone pancreatitis with elevated lipase and elevated liver function tests. The patient also had last intake of Plavix for coronary stents on 03/09/2017. On 03/13/2017, his enzymes were almost normal including lipase. On 03/13/2017, underwent laparoscopic cholecystectomy and intraoperative cholangiogram, which was essentially normal. Postoperatively on 03/14/2017, the patient remained stable. His lipase went down to around 300 from 700 on the day of surgery. He is tolerating a regular diet. He will be discharged on 03/14/2017 to be [facility] in about a week or two. Advised him not to any lifting more than 15 pounds for the first week. DICTATING PHYSICIAN: CHIOMA COATS M.D. [id number] PHY#: [id number] ID: [id number] JOB#: [id number] ACCT: [id number] cc:Harris SAAB M.D. >
[2017-03-14 08:52] VITALS: BP 156/78
== END 2017-03-14 09:36 | disposition home or self-care (01) | DRG 418 ==
LOC: ER 16:28 → EH 21:23 → UNDOADMIN 21:23 → EH 21:57 → 5 23:15 → EH 23:15
PROVIDERS: ATTEND Surgery
PROC: BF101ZZ Fluoroscopy of Bile Ducts using Low Osmolar Contrast (ICD-10-PCS; 2017-03-13)
PROC: 0FT44ZZ Resection of Gallbladder, Percutaneous Endoscopic Approach (ICD-10-PCS; principal; 2017-03-13 07:30)
PROC: 3E0234Z Introduction of Serum, Toxoid and Vaccine into Muscle, Percutaneous Approach (ICD-10-PCS; 2017-03-14)
DX: K85.10 Biliary acute pancreatitis without necrosis or infection (principal); K80.00 Calculus of gallbladder with acute cholecystitis without obstruction; I25.10 Atherosclerotic heart disease of native coronary artery without angina pectoris; E11.9 Type 2 diabetes mellitus without complications; J44.9 Chronic obstructive pulmonary disease, unspecified; K21.9 Gastro-esophageal reflux disease without esophagitis; K59.00 Constipation, unspecified; E66.9 Obesity, unspecified; G47.30 Sleep apnea, unspecified; G89.29 Other chronic pain; M54.9 Dorsalgia, unspecified; Z79.82 Long term (current) use of aspirin; I25.2 Old myocardial infarction; Z95.1 Presence of aortocoronary bypass graft; Z79.899 Other long term (current) drug therapy; Z79.02 Long term (current) use of antithrombotics/antiplatelets; Z96.653 Presence of artificial knee joint, bilateral; Z68.38 Body mass index [BMI] 38.0-38.9, adult; Z79.4 Long term (current) use of insulin; Z23 Encounter for immunization; Z82.49 Family history of ischemic heart disease and other diseases of the circulatory system
CPT/HCPCS: 36415; 74300; 76705; 790; 80048; 80053; 80061; 80076; 82962; 83036; 83690; 85025; 85027; 85610; 85730; 86850; 86900; 86901; 87040; 87070; 87075; 87205; 88304; 90686; 93005; 93010; 96361; 96374; 96375; 99285; J0131; J0330; J1100; J1170; J1335; J1815; J1885; J2250; J2270; J2405; J2704; J3010; J3490; J7030

== ENCOUNTER → 2017-03-09 | Outpatient (CLI) | payer MEDICARE, OTHER ==
[2017-03-09 12:50] LABS: ALANINE AMINOTRANSFERASE 54 U/L (21-72); ALBUMIN 4.2 g/dL (3.5-5.0); ALKALINE PHOSPHATASE 63 U/L (38-126); ANION GAP 13 (5-19); ASPARTATE AMINO TRANSFERASE 106 U/L (17-59); BILIRUBIN,DIRECT 1.4 mg/dL (0.0-0.4); BILIRUBIN,TOTAL 2.1 mg/dL (0.2-1.3); BLOOD UREA NITROGEN 15 mg/dL (7-20); CALCIUM 9.2 mg/dL (8.4-10.2); CARBON DIOXIDE 27 mmol/L (22-30); CHLORIDE 102 mmol/L (98-107); CHOLESTEROL 117.64 mg/dL (0-200); CREATININE RESULT 0.67 mg/dL (0.52-1.25); Direct HDL 44 mg/dL (>40); GLUCOSE 165 mg/dL (75-110); POTASSIUM 4.1 mmol/L (3.6-5.0); SODIUM 141.9 mmol/L (137-145); TOTAL PROTEIN 6.8 g/dL (6.3-8.2); TRIGLYCERIDES 134 mg/dL (<150)
[2017-03-09 13:00] LABS: DIRECT LDL 57 mg/dL (<100)
== END ==
LOC: OD 11:25
PROVIDERS: ATTEND Family Medicine
DX: E11.65 Type 2 diabetes mellitus with hyperglycemia (principal); E78.5 Hyperlipidemia, unspecified; E29.1 Testicular hypofunction; E56.0 Deficiency of vitamin E
CPT/HCPCS: 36415; 80053; 80061; 83036

== ENCOUNTER → 2017-06-22 | Outpatient (CLI) | payer MEDICARE, OTHER ==
[2017-06-22 13:16] LABS: HEMATOCRIT 36.4 % (37.9-51.0); HEMOGLOBIN 12.7 g/dL (13.5-17.0); MEAN CORPUSCULAR HEMOGLOBIN 30.8 pg (27.0-33.4); MEAN CORPUSCULAR VOLUME 88 fl (80-97); PLATELET COUNT 176 10^3/uL (150-450); RED BLOOD COUNT 4.13 10^6/uL (4.35-5.55); RED CELL DISTRIBUTION WIDTH 13.3 % (11.5-14.0); WHITE BLOOD COUNT 6.8 10^3/uL (4.0-10.5)
[2017-06-22 13:40] LABS: ALANINE AMINOTRANSFERASE 29 U/L (21-72); ALBUMIN 4.2 g/dL (3.5-5.0); ALKALINE PHOSPHATASE 48 U/L (38-126); ANION GAP 8 (5-19); ASPARTATE AMINO TRANSFERASE 26 U/L (17-59); BILIRUBIN,DIRECT 0.3 mg/dL (0.0-0.4); BILIRUBIN,TOTAL 0.7 mg/dL (0.2-1.3); BLOOD UREA NITROGEN 17 mg/dL (7-20); CALCIUM 9.3 mg/dL (8.4-10.2); CARBON DIOXIDE 28 mmol/L (22-30); CHLORIDE 102 mmol/L (98-107); CHOLESTEROL 142.41 mg/dL (0-200); GLUCOSE 131 mg/dL (75-110); POTASSIUM 4.6 mmol/L (3.6-5.0); SODIUM 138.2 mmol/L (137-145); TOTAL PROTEIN 6.9 g/dL (6.3-8.2); TRIGLYCERIDES 134 mg/dL (<150)
[2017-06-22 13:54] LABS: DIRECT LDL 83 mg/dL (<100)
== END ==
LOC: OD 12:12
PROVIDERS: ATTEND Family Medicine
DX: E11.65 Type 2 diabetes mellitus with hyperglycemia (principal); E29.1 Testicular hypofunction; E66.01 Morbid (severe) obesity due to excess calories; I25.10 Atherosclerotic heart disease of native coronary artery without angina pectoris; M51.26 Other intervertebral disc displacement, lumbar region; G47.00 Insomnia, unspecified
CPT/HCPCS: 36415; 80053; 80061; 83036; 84443; 85027

== ENCOUNTER → 2017-09-23 | Outpatient (CLI) | payer MEDICARE, OTHER ==
[2017-09-23 12:10] LABS: ABSOLUTE EOSINOPHILS # (AUTO) 0.2 10^3/uL (0.0-0.6); ABSOLUTE LYMPHOCYTES (AUTO) 1.7 10^3/uL (0.5-4.7); ABSOLUTE MONOCYTES (AUTO) 0.4 10^3/uL (0.1-1.4); ABSOLUTE NEUT (AUTO) 2.7 10^3/uL (1.7-8.2); BASOPHILS % (AUTO) 0.8 % (0-2); EOSINOPHILS % (AUTO) 3.4 % (0-6); HEMATOCRIT 37.9 % (37.9-51.0); LYMPHOCYTES % (AUTO) 34.4 % (13-45); MEAN CORPUSCULAR HEMOGLOBIN 30.4 pg (27.0-33.4); MEAN CORPUSCULAR HGB CONC 34.4 g/dL (32.0-36.0); MEAN CORPUSCULAR VOLUME 89 fl (80-97); MONOCYTES % (AUTO) 7.4 % (3-13); PLATELET COUNT 166 10^3/uL (150-450); RED BLOOD COUNT 4.29 10^6/uL (4.35-5.55); RED CELL DISTRIBUTION WIDTH 12.6 % (11.5-14.0); TOTAL CELLS COUNTED % (AUTO) 100 %; WHITE BLOOD COUNT 5.1 10^3/uL (4.0-10.5)
[2017-09-23 12:18] LABS: ABSOLUTE EOSINOPHILS # (AUTO) 0.2 10^3/uL (0.0-0.6); ABSOLUTE LYMPHOCYTES (AUTO) 1.7 10^3/uL (0.5-4.7); ABSOLUTE MONOCYTES (AUTO) 0.4 10^3/uL (0.1-1.4); ABSOLUTE NEUT (AUTO) 2.7 10^3/uL (1.7-8.2); BASOPHILS % (AUTO) 0.8 % (0-2); EOSINOPHILS % (AUTO) 3.4 % (0-6); HEMATOCRIT 37.9 % (37.9-51.0); LYMPHOCYTES % (AUTO) 34.4 % (13-45); MEAN CORPUSCULAR HEMOGLOBIN 30.4 pg (27.0-33.4); MEAN CORPUSCULAR HGB CONC 34.4 g/dL (32.0-36.0); MEAN CORPUSCULAR VOLUME 89 fl (80-97); MONOCYTES % (AUTO) 7.4 % (3-13); PLATELET COUNT 166 10^3/uL (150-450); RED BLOOD COUNT 4.29 10^6/uL (4.35-5.55); RED CELL DISTRIBUTION WIDTH 12.6 % (11.5-14.0); TOTAL CELLS COUNTED % (AUTO) 100 %; WHITE BLOOD COUNT 5.1 10^3/uL (4.0-10.5)
[2017-09-23 12:29] LABS: ALANINE AMINOTRANSFERASE 38 U/L (21-72); ALBUMIN 4.3 g/dL (3.5-5.0); ALKALINE PHOSPHATASE 55 U/L (38-126); ANION GAP 11 (5-19); ASPARTATE AMINO TRANSFERASE 30 U/L (17-59); BILIRUBIN,DIRECT 0.4 mg/dL (0.0-0.4); BILIRUBIN,TOTAL 0.8 mg/dL (0.2-1.3); BLOOD UREA NITROGEN 13 mg/dL (7-20); CALCIUM 9.7 mg/dL (8.4-10.2); CARBON DIOXIDE 30 mmol/L (22-30); CHLORIDE 99 mmol/L (98-107); GLUCOSE 241 mg/dL (75-110); SODIUM 139.9 mmol/L (137-145); TOTAL PROTEIN 7.1 g/dL (6.3-8.2)
[2017-09-23 13:04] LABS: ALANINE AMINOTRANSFERASE 38 U/L (21-72); ALBUMIN 4.3 g/dL (3.5-5.0); ALKALINE PHOSPHATASE 55 U/L (38-126); ANION GAP 11 (5-19); ASPARTATE AMINO TRANSFERASE 30 U/L (17-59); BILIRUBIN,DIRECT 0.4 mg/dL (0.0-0.4); BILIRUBIN,TOTAL 0.8 mg/dL (0.2-1.3); BLOOD UREA NITROGEN 13 mg/dL (7-20); CALCIUM 9.7 mg/dL (8.4-10.2); CARBON DIOXIDE 30 mmol/L (22-30); CHLORIDE 99 mmol/L (98-107); CHOLESTEROL 129.63 mg/dL (0-200); DIRECT LDL 72 mg/dL (<100); GLUCOSE 241 mg/dL (75-110); SODIUM 139.9 mmol/L (137-145); TOTAL PROTEIN 7.1 g/dL (6.3-8.2); TRIGLYCERIDES 100 mg/dL (<150)
[2017-09-24 11:40] LABS: CREATININE URINE 234.2 mg/dL (Not Estab.); MICROALBUMIN URINE 141.5 ug/mL (Not Estab.)
== END ==
LOC: OD 11:09
PROVIDERS: ATTEND Family Medicine
DX: E29.1 Testicular hypofunction (principal); E11.65 Type 2 diabetes mellitus with hyperglycemia; E66.01 Morbid (severe) obesity due to excess calories
CPT/HCPCS: 36415; 80053; 80061; 82043; 82570; 83036; 84403; 84443; 85025

== ENCOUNTER → 2017-11-04 | Outpatient (CLI) | payer MEDICARE, OTHER ==
--- NOTE | 2017-11-04 16:29 | RADIOLOGY REPORT (SQ) ---
EXAM DESCRIPTION: U/S THYROID/SFT TISS HD NECK COMPLETED DATE/TIME: 11/04/2017 4:07 pm REASON FOR STUDY: OTHER DISEASES OF VOCAL CORDS J38.3 OTHER DISEASES OF VOCAL CORDS COMPARISON: None. TECHNIQUE: Dynamic and static randolph-scale images acquired of the thyroid gland. Selected additional c olor/power Doppler images recorded. All images stored to PACS. LIMITATIONS: None. FINDINGS: RIGHT LOBE: Normal size. Homogeneous echotexture. No cystic or solid masses. LEFT LOBE: Normal size. Homogeneous echotexture. 6 mm shadowing calcification. No cystic or solid masses. ISTHMUS: Normal size. Homogeneous echotexture. 5 mm shadowing calcification. No cystic or solid ma sses. OTHER: No other significant finding. IMPRESSION: CALCIFICATIONS IN THE LEFT LOBE AND ISTHMUS. NO OTHER SIGNIFICANT FINDINGS. TECHNICAL DOCUMENTATION: JOB ID: [id number] [employer]- All Rights Reserved Reading location - IP/workstation name: [email or web address]
== END ==
LOC: RAD 14:57
PROVIDERS: ATTEND Otolaryngology
DX: J38.3 Other diseases of vocal cords (principal)
CPT/HCPCS: 76536

== ENCOUNTER → 2017-12-21 | Outpatient (CLI) | payer MEDICARE, OTHER ==
[2017-12-21 13:00] LABS: ABSOLUTE BASOPHILS # (AUTO) 0.1 10^3/uL (0.0-0.2); ABSOLUTE EOSINOPHILS # (AUTO) 0.3 10^3/uL (0.0-0.6); ABSOLUTE LYMPHOCYTES (AUTO) 2.4 10^3/uL (0.5-4.7); ABSOLUTE MONOCYTES (AUTO) 0.4 10^3/uL (0.1-1.4); ABSOLUTE NEUT (AUTO) 2.4 10^3/uL (1.7-8.2); EOSINOPHILS % (AUTO) 4.9 % (0-6); HEMOGLOBIN 13.1 g/dL (13.5-17.0); LYMPHOCYTES % (AUTO) 42.8 % (13-45); MEAN CORPUSCULAR HEMOGLOBIN 30.7 pg (27.0-33.4); MEAN CORPUSCULAR HGB CONC 34.5 g/dL (32.0-36.0); MEAN CORPUSCULAR VOLUME 89 fl (80-97); MONOCYTES % (AUTO) 7.2 % (3-13); PLATELET COUNT 163 10^3/uL (150-450); RED BLOOD COUNT 4.28 10^6/uL (4.35-5.55); SEGMENTED NEUTROPHILS % (AUTO) 44.1 % (42-78); TOTAL CELLS COUNTED % (AUTO) 100 %; WHITE BLOOD COUNT 5.5 10^3/uL (4.0-10.5)
[2017-12-21 13:39] LABS: ALANINE AMINOTRANSFERASE 31 U/L (21-72); ALBUMIN 3.9 g/dL (3.5-5.0); ALKALINE PHOSPHATASE 57 U/L (38-126); ANION GAP 15 (5-19); ASPARTATE AMINO TRANSFERASE 25 U/L (17-59); BILIRUBIN,DIRECT 0.3 mg/dL (0.0-0.4); BILIRUBIN,TOTAL 0.6 mg/dL (0.2-1.3); BLOOD UREA NITROGEN 15 mg/dL (7-20); CARBON DIOXIDE 25 mmol/L (22-30); CHLORIDE 103 mmol/L (98-107); CHOLESTEROL 128.96 mg/dL (0-200); GLUCOSE 148 mg/dL (75-110); POTASSIUM 4.2 mmol/L (3.6-5.0); SODIUM 142.8 mmol/L (137-145); TOTAL PROTEIN 6.7 g/dL (6.3-8.2); TRIGLYCERIDES 140 mg/dL (<150)
[2017-12-21 13:50] LABS: DIRECT LDL 67 mg/dL (<100)
[2017-12-22 11:40] LABS: CREATININE URINE 160.8 mg/dL (Not Estab.); MICROALBUMIN URINE 35.3 ug/mL (Not Estab.)
== END ==
LOC: OD 12:09
PROVIDERS: ATTEND Family Medicine
DX: Z00.00 Encounter for general adult medical examination without abnormal findings (principal); E29.1 Testicular hypofunction; E11.65 Type 2 diabetes mellitus with hyperglycemia; E78.2 Mixed hyperlipidemia
CPT/HCPCS: 36415; 80053; 80061; 82043; 82570; 83036; 84403; 85025

== ENCOUNTER → 2018-03-23 | Outpatient (CLI) | payer MEDICARE, OTHER ==
[2018-03-23 12:17] LABS: ANION GAP 10 (5-19); BLOOD UREA NITROGEN 10 mg/dL (7-20); CALCIUM 9.4 mg/dL (8.4-10.2); CARBON DIOXIDE 29 mmol/L (22-30); CHLORIDE 100 mmol/L (98-107); GLUCOSE 130 mg/dL (75-110); POTASSIUM 4.4 mmol/L (3.6-5.0); SODIUM 138.7 mmol/L (137-145)
== END ==
LOC: OD 10:46
PROVIDERS: ATTEND Family Medicine
DX: E11.65 Type 2 diabetes mellitus with hyperglycemia (principal)
CPT/HCPCS: 36415; 80048; 83036

== ENCOUNTER → 2018-05-24 | Outpatient (CLI) | payer MEDICARE, OTHER ==
[2018-05-24 11:17] LABS: ABSOLUTE BASOPHILS # (AUTO) 0.1 10^3/uL (0.0-0.2); ABSOLUTE EOSINOPHILS # (AUTO) 0.7 10^3/uL (0.0-0.6); ABSOLUTE LYMPHOCYTES (AUTO) 2.5 10^3/uL (0.5-4.7); ABSOLUTE MONOCYTES (AUTO) 0.4 10^3/uL (0.1-1.4); ABSOLUTE NEUT (AUTO) 2.7 10^3/uL (1.7-8.2); BASOPHILS % (AUTO) 0.8 % (0-2); EOSINOPHILS % (AUTO) 10.9 % (0-6); HEMATOCRIT 36.4 % (37.9-51.0); HEMOGLOBIN 12.6 g/dL (13.5-17.0); LYMPHOCYTES % (AUTO) 39.7 % (13-45); MEAN CORPUSCULAR HEMOGLOBIN 30.8 pg (27.0-33.4); MEAN CORPUSCULAR HGB CONC 34.6 g/dL (32.0-36.0); MEAN CORPUSCULAR VOLUME 89 fl (80-97); MONOCYTES % (AUTO) 6.6 % (3-13); PLATELET COUNT 174 10^3/uL (150-450); RED BLOOD COUNT 4.09 10^6/uL (4.35-5.55); RED CELL DISTRIBUTION WIDTH 13.5 % (11.5-14.0); TOTAL CELLS COUNTED % (AUTO) 100 %; WHITE BLOOD COUNT 6.4 10^3/uL (4.0-10.5)
[2018-05-24 11:34] LABS: ALANINE AMINOTRANSFERASE 26 U/L (21-72); ALBUMIN 4.2 g/dL (3.5-5.0); ALKALINE PHOSPHATASE 72 U/L (38-126); ANION GAP 10 (5-19); ASPARTATE AMINO TRANSFERASE 24 U/L (17-59); BILIRUBIN,DIRECT 0.3 mg/dL (0.0-0.4); BILIRUBIN,TOTAL 0.9 mg/dL (0.2-1.3); BLOOD UREA NITROGEN 25 mg/dL (7-20); CALCIUM 9.5 mg/dL (8.4-10.2); CARBON DIOXIDE 27 mmol/L (22-30); CHLORIDE 103 mmol/L (98-107); CHOLESTEROL 90.69 mg/dL (0-200); GLUCOSE 132 mg/dL (75-110); POTASSIUM 4.5 mmol/L (3.6-5.0); SODIUM 140.1 mmol/L (137-145); TOTAL PROTEIN 7.2 g/dL (6.3-8.2); TRIGLYCERIDES 114 mg/dL (<150)
[2018-05-24 11:45] LABS: DIRECT LDL 54 mg/dL (<100)
== END ==
LOC: OD 09:59
PROVIDERS: ATTEND Family Medicine
DX: Z00.00 Encounter for general adult medical examination without abnormal findings (principal); E11.65 Type 2 diabetes mellitus with hyperglycemia; E78.2 Mixed hyperlipidemia; K21.9 Gastro-esophageal reflux disease without esophagitis
CPT/HCPCS: 36415; 80053; 80061; 84402; 85025

== ENCOUNTER → 2018-08-30 | Outpatient (CLI) | payer MEDICARE, OTHER ==
[2018-08-30 12:34] LABS: ALANINE AMINOTRANSFERASE 26 U/L (21-72); ALBUMIN 4.1 g/dL (3.5-5.0); ALKALINE PHOSPHATASE 79 U/L (38-126); ANION GAP 10 (5-19); ASPARTATE AMINO TRANSFERASE 26 U/L (17-59); BILIRUBIN,DIRECT 0.3 mg/dL (0.0-0.4); BILIRUBIN,TOTAL 0.8 mg/dL (0.2-1.3); BLOOD UREA NITROGEN 22 mg/dL (7-20); CALCIUM 9.7 mg/dL (8.4-10.2); CARBON DIOXIDE 28 mmol/L (22-30); CHLORIDE 100 mmol/L (98-107); CHOLESTEROL 102.91 mg/dL (0-200); GLUCOSE 175 mg/dL (75-110); POTASSIUM 4.4 mmol/L (3.6-5.0); SODIUM 137.9 mmol/L (137-145); TOTAL PROTEIN 7.1 g/dL (6.3-8.2); TRIGLYCERIDES 120 mg/dL (<150)
[2018-08-30 12:45] LABS: DIRECT LDL 57 mg/dL (<100)
== END ==
LOC: OD 10:50
PROVIDERS: ATTEND Family Medicine
DX: E11.65 Type 2 diabetes mellitus with hyperglycemia (principal); E78.2 Mixed hyperlipidemia; I25.10 Atherosclerotic heart disease of native coronary artery without angina pectoris; E29.1 Testicular hypofunction; E66.01 Morbid (severe) obesity due to excess calories; Z98.84 Bariatric surgery status
CPT/HCPCS: 36415; 80053; 80061; 83036

== ENCOUNTER → 2018-11-30 | Outpatient (CLI) | payer MEDICARE, OTHER ==
[2018-11-30 11:11] LABS: ALANINE AMINOTRANSFERASE 20 U/L (21-72); ALBUMIN 4.3 g/dL (3.5-5.0); ALKALINE PHOSPHATASE 72 U/L (38-126); ANION GAP 9 (5-19); ASPARTATE AMINO TRANSFERASE 26 U/L (17-59); BILIRUBIN,DIRECT 0.3 mg/dL (0.0-0.4); BILIRUBIN,TOTAL 0.7 mg/dL (0.2-1.3); BLOOD UREA NITROGEN 22 mg/dL (7-20); CALCIUM 9.2 mg/dL (8.4-10.2); CARBON DIOXIDE 31 mmol/L (22-30); CHLORIDE 99 mmol/L (98-107); CHOLESTEROL 102.13 mg/dL (0-200); GLUCOSE 149 mg/dL (75-110); POTASSIUM 4.4 mmol/L (3.6-5.0); SODIUM 139.3 mmol/L (137-145); TOTAL PROTEIN 7.1 g/dL (6.3-8.2); TRIGLYCERIDES 68 mg/dL (<150)
[2018-11-30 11:22] LABS: DIRECT LDL 50 mg/dL (<100)
[2018-12-01 10:17] LABS: PROSTATE SPECIFIC ANTIGEN 0.3 ng/mL (0.0-4.0); PSA % FREE 16.7 % (.); PSA FREE 0.05 ng/mL
== END ==
LOC: OD 09:47
PROVIDERS: ATTEND Family Medicine
DX: I25.10 Atherosclerotic heart disease of native coronary artery without angina pectoris (principal); E11.65 Type 2 diabetes mellitus with hyperglycemia; E29.1 Testicular hypofunction; E78.2 Mixed hyperlipidemia
CPT/HCPCS: 36415; 80053; 80061; 83036; 84154; 84443

== ENCOUNTER → 2019-03-10 | Outpatient (CLI) | payer MEDICARE, OTHER ==
[2019-03-10 10:05] LABS: ALBUMIN 4.1 g/dL (3.5-5.0); ALKALINE PHOSPHATASE 70 U/L (38-126); ANION GAP 9 (5-19); ASPARTATE AMINO TRANSFERASE 28 U/L (17-59); BILIRUBIN,DIRECT 0.1 mg/dL (0.0-0.4); BILIRUBIN,TOTAL 0.5 mg/dL (0.2-1.3); BLOOD UREA NITROGEN 26 mg/dL (7-20); CALCIUM 9.1 mg/dL (8.4-10.2); CARBON DIOXIDE 30 mmol/L (22-30); CHLORIDE 101 mmol/L (98-107); CHOLESTEROL 109.28 mg/dL (0-200); GLUCOSE 99 mg/dL (75-110); POTASSIUM 4.1 mmol/L (3.6-5.0); TOTAL PROTEIN 7.2 g/dL (6.3-8.2); TRIGLYCERIDES 84 mg/dL (<150)
[2019-03-10 10:17] LABS: DIRECT LDL 58 mg/dL (<100)
[2019-03-10 10:22] LABS: FREE T4 (FREE THYROXINE) 0.81 ng/dL (0.78-2.19)
[2019-03-10 10:36] LABS: THYROID STIMULATING HORMONE 2.82 uIU/mL (0.47-4.68)
[2019-03-11 10:46] LABS: PROSTATE SPECIFIC ANTIGEN 0.3 ng/mL (0.0-4.0); PSA % FREE 16.7 % (.); PSA FREE 0.05 ng/mL
== END ==
LOC: OD 09:10
PROVIDERS: ATTEND Family Medicine
DX: E11.65 Type 2 diabetes mellitus with hyperglycemia (principal); E78.2 Mixed hyperlipidemia
CPT/HCPCS: 36415; 80053; 80061; 83036; 84154; 84439; 84443

== ENCOUNTER → 2019-05-31 | Outpatient (CLI) | payer MEDICARE, OTHER ==
[2019-05-31 11:30] LABS: ALBUMIN 4.4 g/dL (3.5-5.0); ALKALINE PHOSPHATASE 75 U/L (38-126); ANION GAP 14 (5-19); ASPARTATE AMINO TRANSFERASE 29 U/L (17-59); BILIRUBIN,DIRECT 0.3 mg/dL (0.0-0.4); BILIRUBIN,TOTAL 0.8 mg/dL (0.2-1.3); BLOOD UREA NITROGEN 17 mg/dL (7-20); CALCIUM 9.4 mg/dL (8.4-10.2); CARBON DIOXIDE 26 mmol/L (22-30); CHLORIDE 101 mmol/L (98-107); CHOLESTEROL 106.49 mg/dL (0-200); GLUCOSE 151 mg/dL (75-110); POTASSIUM 4.1 mmol/L (3.6-5.0); TOTAL PROTEIN 7.8 g/dL (6.3-8.2); TRIGLYCERIDES 113 mg/dL (<150)
[2019-05-31 11:40] LABS: DIRECT LDL 48 mg/dL (<100)
== END ==
LOC: OD 10:07
PROVIDERS: ATTEND Family Medicine
DX: E29.1 Testicular hypofunction (principal); E78.2 Mixed hyperlipidemia; E11.65 Type 2 diabetes mellitus with hyperglycemia
CPT/HCPCS: 36415; 80053; 80061; 83036; 84443

== ENCOUNTER 2019-08-06 00:31 | Emergency (ER) | payer MEDICARE, OTHER ==
[2019-08-06 01:31] LABS: ABSOLUTE BASOPHILS # (AUTO) 0.1 10^3/uL (0.0-0.2); ABSOLUTE EOSINOPHILS # (AUTO) 0.4 10^3/uL (0.0-0.6); ABSOLUTE LYMPHOCYTES (AUTO) 2.3 10^3/uL (0.5-4.7); ABSOLUTE MONOCYTES (AUTO) 0.6 10^3/uL (0.1-1.4); ABSOLUTE NEUT (AUTO) 6.6 10^3/uL (1.7-8.2); BASOPHILS % (AUTO) 0.6 % (0-2); EOSINOPHILS % (AUTO) 3.6 % (0-6); HEMATOCRIT 32.4 % (37.9-51.0); HEMOGLOBIN 11.5 g/dL (13.5-17.0); LYMPHOCYTES % (AUTO) 23.1 % (13-45); MEAN CORPUSCULAR HEMOGLOBIN 32.4 pg (27.0-33.4); MEAN CORPUSCULAR HGB CONC 35.3 g/dL (32.0-36.0); MEAN CORPUSCULAR VOLUME 92 fl (80-97); MONOCYTES % (AUTO) 6.2 % (3-13); PLATELET COUNT 186 10^3/uL (150-450); RED BLOOD COUNT 3.53 10^6/uL (4.35-5.55); RED CELL DISTRIBUTION WIDTH 13.7 % (11.5-14.0); SEGMENTED NEUTROPHILS % (AUTO) 66.5 % (42-78); TOTAL CELLS COUNTED % (AUTO) 100 %; WHITE BLOOD COUNT 9.9 10^3/uL (4.0-10.5)
[2019-08-06 01:45] LABS: ANION GAP 7 (5-19); BLOOD UREA NITROGEN 15 mg/dL (7-20); CALCIUM 8.8 mg/dL (8.4-10.2); CARBON DIOXIDE 28 mmol/L (22-30); CHLORIDE 105 mmol/L (98-107); GLUCOSE 101 mg/dL (75-110); POTASSIUM 4.7 mmol/L (3.6-5.0)
[2019-08-06 02:25] LABS: APPEARANCE,URINE SLIGHTLY-CLOUDY; BILIRUBIN,URINE NEGATIVE (NEGATIVE); COLOR,URINE AMBER; GLUCOSE, URINE >=500 mg/dL (NEGATIVE); KETONES,URINE TRACE mg/dL (NEGATIVE); LEUKOCYTE ESTERASE,URINE NEGATIVE (NEGATIVE); NITRITE,URINE NEGATIVE (NEGATIVE); PROTEIN,URINE NEGATIVE (NEGATIVE); URINE SPECIFIC GRAVITY 1.023; UROBILINOGEN,URINE NEGATIVE mg/dL (<2.0)
[2019-08-06] MEDS ORDERED: ONDANSETRON HCL INJ/PF 4 MG/2 ML SDV IV ONE (02:47)
[2019-08-06] MEDS ORDERED: HYDROMORPHONE HCL INJ/PF 2 MG/ML AMPULE IV ONE ×2 (02:47→04:06)
[2019-08-06] MEDS ORDERED: NORMAL SALINE 1000 ML 1,000 ML IV ONE (02:47)
--- NOTE | 2019-08-06 02:50 | ER Document Report ---
ED GI/ - General Chief Complaint: Flank Pain Stated Complaint: LOW BACK PAIN Time Seen by Provider: 08/06/19 02:42 Primary Care Provider: DEQUAN RIOS MD [Primary Care Provider] - Follow up as needed Notes: Patient is a 68-year-old male that comes to the emergency department for chief complaint of sudden onset sharp left mid flank pain with radiation around to the left abdomen. He denies nausea or vomiting. He denies injury. He denies pain down into his leg, numbness, incontinence, fever, or any other locations of pain. He denies testicular pain or swelling. He states he had a kidney stone 35 years ago which he passed easily. He also states that he has chronic back pain and is on opiates for this (oxycodone with 4 mg dilaudid up to 4 times daily for breakthrough). Remaining medical history includes type 2 diabetes, hypertension, hyperlipidemia. TRAVEL OUTSIDE OF THE [place] IN LAST 30 DAYS: No - Related Data Allergies/Adverse Reactions: No Known Allergies Allergy (Verified 03/09/17 17:46) Home Medications: oxycodone. plavix. metoprolol. asa 81mg. meloxicam. diclofenac. atorvastatin. metformin. glimepiride. pantoprazole. gabapentin. cyclobenzaprine. hydrochloride Past Medical History - General Information source: Patient - Social History Smoking Status: Never Smoker Frequency of alcohol use: None Drug Abuse: None Lives with: Family Family History: CAD, COPD, Hypertension Patient has suicidal ideation: No Patient has homicidal ideation: No - Past Medical History Cardiac Medical History: Reports: Hx Heart Attack Pulmonary Medical History: Reports: Hx COPD Endocrine Medical History: Reports: Hx Diabetes Mellitus Type 2 Renal/ Medical History: Reports: Hx Kidney Stones. Denies: Hx Peritoneal Dialysis GI Medical History: Reports: Hx Gastroesophageal Reflux Disease Psychiatric Medical History: Denies: Hx Depression Past Surgical History: Reports: Hx Cardiac Surgery - bypass, Hx Coronary Artery Bypass Graft - robotic, Hx Orthopedic Surgery - Bilateral knees, Other - Traumatic repair of tendon right arm;, removal left upper quadrant - Immunizations Hx Diphtheria, Pertussis, Tetanus Vaccination: No Review of Systems - Review of Systems Constitutional: No symptoms reported EENT: No symptoms reported Cardiovascular: No symptoms reported Respiratory: No symptoms reported Gastrointestinal: See HPI Genitourinary: See HPI Male Genitourinary: No symptoms reported Musculoskeletal: No symptoms reported Skin: No symptoms reported Hematologic/Lymphatic: No symptoms reported Neurological/Psychological: No symptoms reported Physical Exam - Vital signs Vitals: Temp Pulse Resp BP Pulse Ox 97.5 F 66 20 148/84 H 98 08/06/19 00:47 08/06/19 00:47 08/06/19 00:47 08/06/19 00:47 08/06/19 00:47 - Notes Notes: GENERAL: Patient restless, appears to be in pain HEAD: Normocephalic, atraumatic. EYES: Pupils equal, round, and reactive to light. Extraocular movements intact. ENT: Oral mucosa moist, tongue midline. Oropharynx unremarkable. Airway patent. LUNGS: Clear to auscultation bilaterally, no wheezes, rales, or rhonchi. No respiratory distress. HEART: Regular rate and rhythm. No murmur ABDOMEN: There is some generalized tenderness in the left mid to lower abdomen, no guarding, nonspecific otherwise, bowel sounds present, no distention GENITOURINARY: No swelling or tenderness noted, exam performed with Nori SCALES at bedside EXTREMITIES: Moves all 4 extremities spontaneously. No edema, normal radial and dorsalis pedis pulses bilaterally. No cyanosis. BACK: There does appear to be some left CVA tenderness. No cervical, thoracic, lumbar midline tenderness. No saddle anesthesia, normal distal neurovascular exam. Moves all extremities in full range of motion. NEUROLOGICAL: Alert and oriented x3. Normal speech. Cranial nerves II through XII grossly intact. PSYCH: Somewhat agitated SKIN: Warm, dry, normal turgor. No rashes or lesions noted. Course - Re-evaluation Re-evalutation: CBC, chemistry unremarkable. Urinalysis shows some blood but is otherwise nonspecific. Patient given IV fluids, pain medication. Clinical presentation is very suggestive of a kidney stone. Because patient had not had one in so long along with his chronic back pain decision was made to proceed with CT to rule out acute process and identify the cause of his pain. CT showing 3 mm left UVJ distal ureteral stone with some hydronephrosis. Vital signs are unremarkable. Patient had to be remedicated once but after this his symptoms completely resolved. He is asking for a strainer, the Toradol because of his symptom improvement with it, and he states he will follow-up with uro logy. Discussed precautions with Toradol because of his age, he states he will drink plenty of fluids and take this with food, he will only take this if absolutely needed along with his pain medication. Discussed return precautions at length. Patient states understanding and agreement. Stable and well- appearing at time of discharge. - Vital Signs Vital signs: Temp Pulse Resp BP Pulse Ox 97.8 F 64 16 123/70 100 08/06/19 05:53 08/06/19 05:53 08/06/19 05:53 08/06/19 05:53 08/06/19 05:53 - Laboratory Result Diagrams: 08/06/19 01:15 08/06/19 01:15 Laboratory results interpreted by me: 08/06/19 08/06/19 01:15 02:00 RBC 3.53 L Hgb 11.5 L Hct 32.4 L Urine Glucose (UA) >=500 H Urine Ketones TRACE H Urine Ascorbic Acid 40 H Discharge - Discharge Clinical Impression: Left flank pain, Left sided abdominal pain, Ureterolithiasis Condition: Stable Disposition: HOME, SELF-CARE Additional Instructions: You are passing a kidney stone on the left side, this is 3 mm. You should be able to pass this. Take Zofran as needed for nausea, Flomax to help pass this, and Toradol only if needed with food along with your pain medication. Make sure you drink a lot of water while taking this. Follow-up closely with the urology referral listed below. Return if you worsen including severe worsening pain, vomiting, fever, or any other concerning or worsening symptoms. [facility] [address] [place], [place] [id number] [facility] [address] [place], [place] [id number] Prescriptions: Ketorolac Tromethamine [Toradol 10 mg Tablet] 10 mg PO Q8HP PRN #24 tablet PRN Reason: Tamsulosin HCl [Flomax 0.4 mg Cap.sr] 0.4 mg PO DAILY #7 cap.sr.24h Ondansetron [Zofran Odt 4 mg Tablet] 1 - 2 tab PO Q4H PRN #15 tab.rapdis PRN Reason: For Nausea/Vomiting Referrals: DEQUAN RIOS MD [Primary Care Provider] - Follow up as needed
--- NOTE | 2019-08-06 03:51 | RADIOLOGY REPORT (SQ) ---
EXAM DESCRIPTION: CT ABDOMEN PELVIS WITHOUT IV CONTRAST COMPLETED DATE/TME: 08/06/2019 02:47 CLINICAL HISTORY: left flank and left abd pain COMPARISON: 11/24/2016 TECHNIQUE: CT of the abdomen and pelvis without IV contrast. Evaluation of the solid organs and vasculature is suboptimal due to lack of IV contrast. FINDINGS: Lung Bases: Right basilar calcified granuloma. Bones: Degenerative endplate spondylosis, facet arthropathy, disc height narrowing throughout the spine. Abdomen: Liver: The liver has normal size and decreased density. Gallbladder: No calcified gallstones. Spleen, Pancreas, and Adrenal Glands: The spleen, pancreas, and adrenal glands are unremarkable. Kidneys: There is a 0.3 cm obstructing calculus in the distal left ureter producing moderate left hydroureter and hydronephrosis. Punctate nonobstructing bilateral nephrolithiasis. No right-sided hydronephrosis. Left perinephric fat stranding. Vasculature: Aortoiliac atherosclerosis. IVC is unremarkable. Stomach: Gastric bypass. Other: No free intraperitoneal air. No free fluid or lymphadenopathy. Pelvis: Bladder: Urinary bladder is unremarkable. Bowel: No dilated loops of large or small bowel. Appendix: None identified. Pelvis: Prostate is not enlarged. IMPRESSION: 1. There is a 0.3 cm obstructing calculus in the distal left ureter. Using moderate left hydroureter and hydronephrosis. 2. Nonobstructing bilateral punctate nephrolithiasis. 3. Hepatic steatosis. This exam was performed according to our departmental dose-optimization program, which includes automated exposure control, adjustment of the mA and/or kV according to patient size and/or use of iterative reconstruction technique.
[2019-08-06] MEDS ORDERED: KETOROLAC TROMETHAMINE INJ/PF 30 MG/1 ML SDV IV ONE (04:06)
[2019-08-06 05:54] VITALS: BP 123/70
== END 2019-08-06 05:54 | disposition home or self-care (01) ==
LOC: ER 00:31
DX: N13.2 Hydronephrosis with renal and ureteral calculous obstruction (principal); R31.9 Hematuria, unspecified; M54.5 Low back pain; G89.29 Other chronic pain; K21.9 Gastro-esophageal reflux disease without esophagitis; I10 Essential (primary) hypertension; J44.9 Chronic obstructive pulmonary disease, unspecified; E11.9 Type 2 diabetes mellitus without complications; E78.00 Pure hypercholesterolemia, unspecified; Z79.891 Long term (current) use of opiate analgesic; Z79.02 Long term (current) use of antithrombotics/antiplatelets; Z79.82 Long term (current) use of aspirin; Z79.899 Other long term (current) drug therapy; Z79.84 Long term (current) use of oral hypoglycemic drugs; Z79.1 Long term (current) use of non-steroidal anti-inflammatories (NSAID); Z95.1 Presence of aortocoronary bypass graft
CPT/HCPCS: 96376; 99284; 96361; 96374; 96375; 36415; 85025; 80048; 81001; 74176; J1885; J1170; J2405; J7030

== ENCOUNTER → 2019-09-15 | Outpatient (CLI) | payer MEDICARE, OTHER ==
[2019-09-15 10:49] LABS: ALBUMIN 4.1 g/dL (3.5-5.0); ALKALINE PHOSPHATASE 73 U/L (38-126); ANION GAP 9 (5-19); ASPARTATE AMINO TRANSFERASE 24 U/L (17-59); BILIRUBIN,TOTAL 0.6 mg/dL (0.2-1.3); BLOOD UREA NITROGEN 16 mg/dL (7-20); CALCIUM 9.1 mg/dL (8.4-10.2); CARBON DIOXIDE 29 mmol/L (22-30); CHLORIDE 101 mmol/L (98-107); GLUCOSE 131 mg/dL (75-110); POTASSIUM 4.5 mmol/L (3.6-5.0); TOTAL PROTEIN 7.3 g/dL (6.3-8.2)
[2019-09-16 06:37] LABS: MICROALBUMIN URINE 51.5 ug/mL (Not Estab.)
== END ==
LOC: OD 09:57
PROVIDERS: ATTEND Family Medicine
DX: E11.65 Type 2 diabetes mellitus with hyperglycemia (principal); E11.59 Type 2 diabetes mellitus with other circulatory complications; E29.1 Testicular hypofunction; E78.2 Mixed hyperlipidemia; G89.29 Other chronic pain; M51.26 Other intervertebral disc displacement, lumbar region; Z98.84 Bariatric surgery status
CPT/HCPCS: 36415; 80053; 82043; 82570

== ENCOUNTER → 2019-10-12 | Outpatient (CLI) | payer MEDICARE, OTHER ==
[2019-10-12 16:17] LABS: ALBUMIN 4.5 g/dL (3.5-5.0); ALKALINE PHOSPHATASE 76 U/L (38-126); ASPARTATE AMINO TRANSFERASE 28 U/L (17-59); BILIRUBIN,DIRECT 0.2 mg/dL (0.0-0.4); BILIRUBIN,TOTAL 0.6 mg/dL (0.2-1.3); CREATINE KINASE 202 U/L (55-170); TOTAL PROTEIN 7.6 g/dL (6.3-8.2)
== END ==
LOC: OD 14:10
PROVIDERS: ATTEND Specialist
DX: I25.10 Atherosclerotic heart disease of native coronary artery without angina pectoris (principal); Z98.61 Coronary angioplasty status; I47.1 Supraventricular tachycardia; I48.0 Paroxysmal atrial fibrillation; E08.9 Diabetes mellitus due to underlying condition without complications; K21.9 Gastro-esophageal reflux disease without esophagitis; G89.4 Chronic pain syndrome; R94.39 Abnormal result of other cardiovascular function study; R06.02 Shortness of breath; E78.5 Hyperlipidemia, unspecified; Z79.899 Other long term (current) drug therapy
CPT/HCPCS: 36415; 80076; 82550

== ENCOUNTER 2019-11-30 12:42 | Emergency (ER) | payer MEDICARE, OTHER ==
[2019-11-30 13:00] VITALS: BP 106/64
--- NOTE | 2019-11-30 13:30 | ER Document Report ---
HPI - HPI Time Seen by Provider: 11/30/19 13:23 Pain Level: 2 Notes: CHIEF COMPLAINT: Right knee injury HPI: 69-year-old male with history of right knee total replacement presenting for right knee injury yesterday from fall. Denies hip or ankle pain. States that he twisted the knee and it became significantly swollen last night. Still swollen today just not as swollen does not have an orthopedic physician that he follows with here. Patient is on chronic pain management for back issues where he takes oxycodone and hydromorphone orally ROS: See HPI - all other systems were reviewed and are otherwise negative Constitutional: no fever Integumentary: no rash Allergy: no hives Musculoskeletal: + extremity pain or swelling Neurological: no numbness/tingling MEDICATIONS: I agree with the patient medications as charted by the RN. ALLERGIES: I agree with the allergies as charted by the RN. PAST MEDICAL HISTORY/PAST SURGICAL HISTORY: Reviewed and agree as charted by RN. SOCIAL HISTORY: Reviewed and agree as charted by RN. FAMILY HISTORY: No significant familial comorbid conditions directly related to patient complaint EXAM: Reviewed vital signs as charted by RN. CONSTITUTIONAL: Alert and oriented and responds appropriately to questions. Well-appearing; well-nourished HEAD: Normocephalic; atraumatic EYES: PERRL; Conjunctivae clear, sclerae non-icteric ENT: normal nose; no rhinorrhea; moist mucous membranes NECK: Supple without meningismus; non-tender; no cervical lymphadenopathy, no masses CARD: Capillary refill less than 3 seconds; symmetric distal pulses RESP: Normal chest excursion without splinting or tachypnea ABD/GI: on-distended BACK: The back appears normal and is non-tender to palpation EXT: Normal ROM in all joints; effusion is noted over the right knee anteriorly with tenderness on palpation. No visible bruising. No laxity on varus or valgus rotation. Negative anterior drawer sign. No hip or ankle discomfort on palpation or range of motion. Patient is able to fully straighten the right leg at the knee SKIN: Normal color for age and race; warm; dry; good turgor; no acute lesions noted NEURO: Moves all extremities equally; Motor and sensory function intact PSYCH: The patient's mood and manner are appropriate. Grooming and personal hygiene are appropriate. MDM: 69-year-old male with injury to the right knee, prior history of total knee replacement. Will obtain x-ray for fracture. Has no pain in the upper thigh or hip. Past Medical History - Social History Smoking Status: Unknown if Ever Smoked Family History: CAD, COPD, Hypertension - Past Medical History Cardiac Medical History: Reports: Hx Heart Attack Pulmonary Medical History: Reports: Hx COPD Endocrine Medical History: Reports: Hx Diabetes Mellitus Type 2 Renal/ Medical History: Reports: Hx Kidney Stones. Denies: Hx Peritoneal D ialysis GI Medical History: Reports: Hx Gastroesophageal Reflux Disease Psychiatric Medical History: Denies: Hx Depression Past Surgical History: Reports: Hx Cardiac Surgery - bypass, Hx Coronary Artery Bypass Graft - robotic, Hx Orthopedic Surgery - Bilateral knees, Other - Traumatic repair of tendon right arm;, removal left upper quadrant - Immunizations Hx Diphtheria, Pertussis, Tetanus Vaccination: No Vertical Provider Document - INFECTION CONTROL TRAVEL OUTSIDE OF THE [place] IN LAST 30 DAYS: No Course - Re-evaluation Re-evalutation: 11/30/19 13:49 I do not visualize a definitive fracture on patient's x-ray. Will Paul wrap for comfort and to help with swelling, crutches limited weightbearing orthopedic follow-up - Vital Signs Vital signs: Temp Pulse Resp BP Pulse Ox 98.6 F 68 18 106/64 98 11/30/19 12:56 11/30/19 12:56 11/30/19 12:56 11/30/19 12:56 11/30/19 12:56 Discharge - Discharge Clinical Impression: Right knee injury Qualifiers: Encounter type: initial encounter Qualified Code(s): S89.91XA - Unspecified injury of right lower leg, initial encounter Condition: Stable Disposition: HOME, SELF-CARE Additional Instructions: 1. ice and elevate the lower extremity as much as possible 2. utilize the crutches as instructed, weight bearing as tolerated with Paul wrap Int on 3. Continue your pain medications at home. 4. follow up with orthopedics for further evaluation and treatment, call for appt. Referrals: SAVANNAH PATEL JR, DO [ACTIVE PROVISIONAL STAFF] - Follow up as needed
--- NOTE | 2019-11-30 14:04 | RADIOLOGY REPORT (SQ) ---
EXAM DESCRIPTION: KNEE RIGHT 4 VIEWS IMAGES COMPLETED DATE/TIME: 11/30/2019 1:46 pm REASON FOR STUDY: injury COMPARISON: None. NUMBER OF VIEWS: Four views. TECHNIQUE: AP, lateral, and both oblique radiographic images acquired of the right knee. LIMITATIONS: None. FINDINGS: MINERALIZATION: Normal. BONES: No acute fracture or dislocation. No worrisome bone lesions. JOINT: The patient has had previous total arthroplasty. There is a small joint effusion. SOFT TISSUES: No soft tissue swelling. No radio-opaque foreign body. OTHER: No other significant finding. IMPRESSION: Prior total knee replacement. Small joint effusion. No displaced fractures. TECHNICAL DOCUMENTATION: JOB ID: [id number] 2010 [employer]- All Rights Reserved Reading location - IP/workstation name: [email or web address]
== END 2019-11-30 14:30 | disposition home or self-care (01) ==
LOC: ER 12:42
DX: S89.91XA Unspecified injury of right lower leg, initial encounter (principal); W19.XXXA Unspecified fall, initial encounter; M25.461 Effusion, right knee; J44.9 Chronic obstructive pulmonary disease, unspecified; E11.9 Type 2 diabetes mellitus without complications; Z96.651 Presence of right artificial knee joint; Z79.891 Long term (current) use of opiate analgesic; Z95.1 Presence of aortocoronary bypass graft
CPT/HCPCS: 99283

== ENCOUNTER → 2020-01-05 | Outpatient (CLI) | payer MEDICARE, OTHER ==
[2020-01-05 09:57] LABS: ALKALINE PHOSPHATASE 99 U/L (38-126); ANION GAP 10 (5-19); ASPARTATE AMINO TRANSFERASE 24 U/L (17-59); BILIRUBIN,TOTAL 0.8 mg/dL (0.2-1.3); BLOOD UREA NITROGEN 15 mg/dL (7-20); CALCIUM 9.2 mg/dL (8.4-10.2); CARBON DIOXIDE 23 mmol/L (22-30); CHLORIDE 103 mmol/L (98-107); CHOLESTEROL 116.72 mg/dL (0-200); GLUCOSE 164 mg/dL (75-110); POTASSIUM 4.3 mmol/L (3.6-5.0); TRIGLYCERIDES 155 mg/dL (<150)
[2020-01-05 10:22] LABS: DIRECT LDL 50 mg/dL (<100)
[2020-01-06 11:37] LABS: CREATININE URINE 227.4 mg/dL (Not Estab.); MICROALBUMIN URINE 21.9 ug/mL (Not Estab.)
== END ==
LOC: OD 08:36
PROVIDERS: ATTEND Family Medicine
DX: E78.2 Mixed hyperlipidemia (principal); E11.65 Type 2 diabetes mellitus with hyperglycemia
CPT/HCPCS: 36415; 80053; 80061; 82043; 82570; 83036

== ENCOUNTER 2020-03-25 12:25 | Emergency (ER) | payer MEDICARE, OTHER ==
--- NOTE | 2020-03-25 12:42 | ER Document Report ---
ED Medical Screen (RME) - General Chief Complaint: Flank Pain Stated Complaint: FLANK PAIN Time Seen by Provider: 03/25/20 12:40 Primary Care Provider: DEQUAN RIOS MD [Primary Care Provider] - Follow up as needed Mode of Arrival: Ambulatory Information source: Patient Notes: 69-year-old male presented ED for complaint of left flank pain. He states he is on narcotics for his back and he took that about 845 this morning. He states he takes 20 mg of oxycodone. He states this did not help his pain. He states that is when he figured it was a kidney stone so he came to the ER to get it evaluated. He states he has had kidney stones in the past about 3 months ago he was told he had 1. He does not have any nausea or vomiting anything else is just left flank pain. He states he does have a history of kidney stones back pain coronary artery disease high blood pressure cholesterol stents and diabetes type 2. He states he is a former smoker does not use alcohol or street drugs. He states he does need something for his discomfort but he is on Plavix at this time I cannot give him anti-inflammatories. I will order IV fluids for his stone and a CT to be evaluated. He will be seen by another provider when he gets to the room. I have greeted and performed a rapid initial assessment of this patient. A comprehensive ED assessment and evaluation of the patient, analysis of test results and completion of medical decision making process will be conducted by an additional ED providers. TRAVEL OUTSIDE OF THE [place] IN LAST 30 DAYS: No - Related Data Allergies/Adverse Reactions: No Known Allergies Allergy (Verified 03/09/17 17:46) Past Medical History - Past Medical History Cardiac Medical History: Reports: Hx Heart Attack Pulmonary Medical History: Reports: Hx COPD Endocrine Medical History: Reports: Hx Diabetes Mellitus Type 2 Renal/ Medical History: Reports: Hx Kidney Stones. Denies: Hx Peritoneal Dialysis GI Medical History: Reports: Hx Gastroesophageal Reflux Disease Psychiatric Medical History: Denies: Hx Depression Past Surgical History: Reports: Hx Cardiac Surgery - bypass, Hx Coronary Artery Bypass Graft - robotic, Hx Orthopedic Surgery - Bilateral knees, Other - Traumatic repair of tendon right arm;, removal left upper quadrant - Immunizations Hx Diphtheria, Pertussis, Tetanus Vaccination: No Physical Exam - Vital signs Vitals: Temp Pulse Resp BP Pulse Ox 97.7 F 80 16 137/78 H 99 03/25/20 12:36 03/25/20 12:36 03/25/20 12:36 03/25/20 12:36 03/25/20 12:36 Course - Vital Signs Vital signs: Temp Pulse Resp BP Pulse Ox 97.7 F 80 16 137/78 H 99 03/25/20 12:36 03/25/20 12:36 03/25/20 12:36 03/25/20 12:36 03/25/20 12:36 Doctor's Discharge - Discharge Referrals: DEQUAN RIOS MD [Primary Care Provider] - Follow up as needed
[2020-03-25] MEDS ORDERED: NORMAL SALINE 1000 ML 1,000 ML IV ONE (12:46)
[2020-03-25 13:11] LABS: ABSOLUTE EOSINOPHILS # (AUTO) 0.2 10^3/uL (0.0-0.6); ABSOLUTE LYMPHOCYTES (AUTO) 1.3 10^3/uL (0.5-4.7); ABSOLUTE MONOCYTES (AUTO) 0.5 10^3/uL (0.1-1.4); ABSOLUTE NEUT (AUTO) 4.7 10^3/uL (1.7-8.2); BASOPHILS % (AUTO) 0.5 % (0-2); EOSINOPHILS % (AUTO) 2.3 % (0-6); HEMATOCRIT 29.9 % (37.9-51.0); HEMOGLOBIN 10.5 g/dL (13.5-17.0); LYMPHOCYTES % (AUTO) 19.1 % (13-45); MEAN CORPUSCULAR HEMOGLOBIN 31.4 pg (27.0-33.4); MEAN CORPUSCULAR VOLUME 90 fl (80-97); MONOCYTES % (AUTO) 7.7 % (3-13); PLATELET COUNT 153 10^3/uL (150-450); RED BLOOD COUNT 3.34 10^6/uL (4.35-5.55); RED CELL DISTRIBUTION WIDTH 13.5 % (11.5-14.0); SEGMENTED NEUTROPHILS % (AUTO) 70.4 % (42-78); TOTAL CELLS COUNTED % (AUTO) 100 %; WHITE BLOOD COUNT 6.7 10^3/uL (4.0-10.5)
[2020-03-25 13:26] LABS: APPEARANCE,URINE SLIGHTLY-CLOUDY; BILIRUBIN,URINE NEGATIVE (NEGATIVE); COLOR,URINE YELLOW; GLUCOSE, URINE 50 mg/dL (NEGATIVE); KETONES,URINE NEGATIVE (NEGATIVE); LEUKOCYTE ESTERASE,URINE NEGATIVE (NEGATIVE); NITRITE,URINE NEGATIVE (NEGATIVE); PROTEIN,URINE NEGATIVE (NEGATIVE); URINE SPECIFIC GRAVITY 1.024; UROBILINOGEN,URINE NEGATIVE mg/dL (<2.0)
[2020-03-25 13:31] LABS: ALBUMIN 3.8 g/dL (3.5-5.0); ALKALINE PHOSPHATASE 81 U/L (38-126); ANION GAP 10 (5-19); ASPARTATE AMINO TRANSFERASE 27 U/L (17-59); BILIRUBIN,DIRECT 0.4 mg/dL (0.0-0.4); BILIRUBIN,TOTAL 0.8 mg/dL (0.2-1.3); BLOOD UREA NITROGEN 20 mg/dL (7-20); CALCIUM 9.1 mg/dL (8.4-10.2); CARBON DIOXIDE 23 mmol/L (22-30); CHLORIDE 102 mmol/L (98-107); GLUCOSE 158 mg/dL (75-110); POTASSIUM 4.2 mmol/L (3.6-5.0); TOTAL PROTEIN 6.4 g/dL (6.3-8.2)
--- NOTE | 2020-03-25 14:29 | RADIOLOGY REPORT (SQ) ---
EXAM DESCRIPTION: CT ABD/PELVIS NO ORAL OR IV IMAGES COMPLETED DATE/TIME: 03/25/2020 2:07 pm REASON FOR STUDY: right flank pain COMPARISON: None. TECHNIQUE: CT scan of the abdomen and pelvis performed without intravenous or oral contrast. Images reviewed with lung, soft tissue, and bone windows. Reconstructed coronal and sagittal MPR images revi ewed. All images stored on PACS. All CT scanners at this facility use dose modulation, iterative reconstruction, and/or weight based d osing when appropriate to reduce radiation dose to as low as reasonably achievable (ALARA). [facility]: Dose Right [facility]: CareDose [facility]: Dose Right [facility]: Teradose 4D [facility]: Smart Nexmo RADIATION DOSE: CT Rad equipment meets quality standard of care and radiation dose reduction techniq ues were employed. CTDIvol: 15.4 mGy. DLP: 793 mGy-cm.mGy. LIMITATIONS: None. FINDINGS: LOWER CHEST: No significant findings. No nodules or infiltrates. Calcified granuloma pres ent at the posterior right lung base. NON-CONTRASTED LIVER, SPLEEN, ADRENALS: Evaluation limited by lack of IV contrast. No identified sign ificant masses. Calcifications in the liver and spleen likely represent sequelae of prior granulomat ous disease. PANCREAS: No masses. Moderate fatty atrophy. No peripancreatic inflammatory changes. GALLBLADDER: Surgically absent. RIGHT KIDNEY AND URETER: No solid masses. No significant calcification. No hydronephrosis or hydroure ter. LEFT KIDNEY AND URETER: The left kidney is normal in size and contour. There is mild perinephric str anding and moderate pelvicaliectasis secondary to a 4 mm obstructing ureterolith at the left ureterov esicular junction. AORTA AND RETROPERITONEUM: No aneurysm. No retroperitoneal masses or adenopathy. Moderate scattered atherosclerotic calcifications are present. BOWEL AND PERITONEAL CAVITY: Postoperative changes from prior gastric bypass are noted. No obvious m asses or inflammatory changes. Trace free fluid is noted in the dependent pelvis. APPENDIX: Not visualized. PELVIS, BLADDER, AND ABDOMINAL WALL:No abnormal masses. No free fluid. Bladder normal. BONES: No significant findings. OTHER: No other significant finding. IMPRESSION: Obstructing 4 mm stone at the left ureterovesicular junction with moderate left hydronep hrosis. TECHNICAL DOCUMENTATION: JOB ID: [id number] Quality ID # [id number]: Final reports with documentation of one or more dose reduction techniques (e.g., Au tomated exposure control, adjustment of the mA and/or kV according to patient size, use of iterative reconstruction technique) 2010 [employer] [facility] [employer]- All Rights Reserved Reading location - IP/workstation name: [email or web address]
[2020-03-25] MEDS ORDERED: HYDROMORPHONE HCL INJ/PF 2 MG/ML AMPULE IM ONE (19:36)
--- NOTE | 2020-03-25 19:42 | ER Document Report ---
ED General - General Chief Complaint: Flank Pain Stated Complaint: FLANK PAIN Time Seen by Provider: 03/25/20 12:40 Primary Care Provider: DEQUAN RIOS MD [Primary Care Provider] - Follow up as needed Mode of Arrival: Ambulatory Notes: Patient is a 69-year-old white male with a history of chronic pain due to a "bad back" who takes oxycodone 20 mg 8 times per day as well as Dilaudid 4 mg tablets as needed for breakthrough pain who presents to the emergency department with a chief complaint of left back pain. States that a few weeks ago he had some hematuria saw a urologist who did a CAT scan and found a nephrolith. He states it was not bothering him and they advised the procedure to go in and extract. Patient states he is not had time to have this done. He states he awoke this morning at 7 AM and started having pain in his left back. He states he figured it was from his chronic back pain and took his home medications. He states the medicines were not helping so he went to his daughter's house and was talking to her about it and she thought it was probably his kidney stone and referred him to the ER. Patient states pain is been persistent since this morning and not e ased. States he has been pushing clear fluids without any improvement in pain. He took his pain medicines without any improvement. Denies any nausea vomiting or diarrhea. He states he had 1 prior stone over 30 years ago. He has an established relationship with urologist, Dr. Feliciano. Denies any testicular pain or swelling. Denies any hematuria. Abdominal pain. No fever. TRAVEL OUTSIDE OF THE [place] IN LAST 30 DAYS: No - Related Data Allergies/Adverse Reactions: No Known Allergies Allergy (Verified 03/09/17 17:46) Past Medical History - General Information source: Patient - Social History Smoking Status: Unknown if Ever Smoked Family History: CAD, COPD, Hypertension - Past Medical History Cardiac Medical History: Reports: Hx Heart Attack Pulmonary Medical History: Reports: Hx COPD Endocrine Medical History: Reports: Hx Diabetes Mellitus Type 2 Renal/ Medical History: Reports: Hx Kidney Stones. Denies: Hx Peritoneal Dialysis GI Medical History: Reports: Hx Gastroesophageal Reflux Disease Psychiatric Medical History: Denies: Hx Depression Past Surgical History: Reports: Hx Cardiac Surgery - bypass, Hx Coronary Artery Bypass Graft - robotic, Hx Orthopedic Surgery - Bilateral knees, Other - Traumatic repair of tendon right arm;, removal left upper quadrant - Immunizations Hx Diphtheria, Pertussis, Tetanus Vaccination: No Review of Systems - Review of Systems Constitutional: denies: Fever EENT: denies: Nose pain Cardiovascular: denies: Orthopnea Respiratory: denies: Hemoptysis Gastrointestinal: denies: Blood streaked bowels Genitourinary: denies: Hematuria Male Genitourinary: denies: Testicular pain Musculoskeletal: denies: Joint swelling Skin: denies: Change in hair/nails Hematologic/Lymphatic: denies: Easy bruising Neurological/Psychological: denies: Homicidal ideation Physical Exam - Vital signs Vitals: Temp Pulse Resp BP Pulse Ox 97.7 F 80 16 137/78 H 99 03/25/20 12:36 03/25/20 12:36 03/25/20 12:36 03/25/20 12:36 03/25/20 12:36 - General General appearance: Appears well, Alert In distress: None - Respiratory Respiratory status: No respiratory distress Chest status: Nontender Breath sounds: Normal Chest palpation: Normal - Cardiovascular Rhythm: Regular Heart sounds: Normal auscultation - Abdominal Inspection: Normal Distension: No distension Bowel sounds: Normal Tenderness: Nontender Organomegaly: No organomegaly - Back Back: No: CVA tenderness - Neurological Neuro grossly intact: Yes Cognition: Normal Orientation: AAOx4 - Psychological Associated symptoms: Normal affect, Normal mood - Skin Skin Temperature: Warm Skin Moisture: Dry Skin Color: Normal Course - Re-evaluation Re-evalutation: 03/25/20 19:40 CT scan showing a left 4 mm stone at the UVJ with some moderate left-sided hydronephrosis. The patient's kidney function is slightly elevated creatinine 1.45. The right kidney is not obstructed and functioning normally. Patient has a pain contract. We will give him Dilaudid IM here for pain control. Will prescribe Flomax for home encouraged push clear fluids. He will call his urologist tomorrow morning for further instruction as well as his pain doctor tomorrow morning for further advice for pain control. Counseled him regarding the importance of outpatient follow-up and advised that he return here or any ER immediately with any new, persistent or worsening symptoms. He verbalized understood and agreed. 03/25/20 19:40 03/25/20 20:32 Patient was given 2 mg of IM Dilaudid. He states it did not change his pain 1 ounce. He reports it was like giving him an injection of water. Patient is obviously very opioid tolerant. He requested higher doses of injectable Dilaudid. I advised that we could trial different pain medicine such as fentanyl. The patient declined. He is chewing gum sitting on the edge of the bed texting his daughter. He does not appear to be in any distress. He has tablets of Dilaudid and oxycodone at home. He will use as previously instructed by his doctor for any ongoing pain. Avoid Toradol due to kidney function. Suspect the stone will drop into the bladder soon given its anatomical location on CT. Will prescribe Flomax. Counseled the patient regarding pushing clear fluids and rest. - Vital Signs Vital signs: Temp Pulse Resp BP Pulse Ox 98.0 F 71 16 144/85 H 100 03/25/20 19:56 03/25/20 16:36 03/25/20 16:36 03/25/20 16:36 03/25/20 16:36 - Laboratory Result Diagrams: 03/25/20 13:00 03/25/20 13:00 Laboratory results interpreted by me: 03/25/20 03/25/20 03/25/20 13:00 13:00 13:00 RBC 3.34 L Hgb 10.5 L Hct 29.9 L Sodium 134.6 L Creatinine 1.45 H Est GFR ( Amer) 59 L Est GFR (MDRD) Non-Af 49 L Glucose 158 H POC Glucose Urine Glucose (UA) 50 H Urine Ascorbic Acid 20 H 03/25/20 18:28 RBC Hgb Hct Sodium Creatinine Est GFR ( Amer) Est GFR (MDRD) Non-Af Glucose POC Glucose 123 H Urine Glucose (UA) Urine Ascorbic Acid Discharge - Discharge Clinical Impression: Ureteral colic, Ureteral stone Hydronephrosis Qualifiers: Hydronephrosis type: unspecified Qualified Code(s): N13.30 - Unspecified hydronephrosis Condition: Stable Disposition: HOME, SELF-CARE Instructions: Pain Medication Injection ([facility]), Kidney Stone ([facility]) Additional Instructions: Please call your urologist and your pain management doctor first thing tomorrow morning for continued guidance and outpatient management. Please return here or any ER immediately with any new, persistent or worsening symptoms. Prescriptions: Tamsulosin HCl [Flomax 0.4 mg Cap.sr] 0.4 mg PO DAILY #7 cap.sr.24h Referrals: DEQUAN RIOS MD [Primary Care Provider] - Follow up as needed
[2020-03-25 20:53] VITALS: BP 155/91
== END 2020-03-25 20:55 | disposition home or self-care (01) ==
LOC: ER 12:25
DX: N13.2 Hydronephrosis with renal and ureteral calculous obstruction (principal); E11.9 Type 2 diabetes mellitus without complications; J44.9 Chronic obstructive pulmonary disease, unspecified; M54.9 Dorsalgia, unspecified; G89.29 Other chronic pain; Z79.891 Long term (current) use of opiate analgesic; Z95.1 Presence of aortocoronary bypass graft
CPT/HCPCS: 99285; 96372; 36415; 87086; 82962; 83690; 85025; 80053; 81001; 74176; J1170

== ENCOUNTER 2020-04-03 08:02 | Day surgery (SDC) | payer MEDICARE, OTHER ==
[~2020-04-03 08:02] MED LIST: KETOROLAC TROMETHAMINE 0.45% 4 DROP/0.4 ML DROPERETTE OD PRN
[2020-04-03] MEDS: TROPICAMIDE 1% OPH SOLN 15 ML OD PRN ×3 (08:57→09:17)
[2020-04-03] MEDS: CYCLOPENTOLATE 0.2%/PHENYLEPHRINE 1% OPH SOLN 2 ML OD PRN ×3 (08:57→09:17)
[2020-04-03] MEDS: BESIFLOXACIN HCL 0.6% OPH SUSP 5 ML BOTTLE OD PRN ×4 (08:57→11:07)
[2020-04-03] MEDS: TETRACAINE HCL 0.5% OPH SOLN 4 ML OD PRN ×5 (08:58→10:50)
[2020-04-03] MEDS ORDERED: MIDAZOLAM 2 MG/2 ML INJ ONE ×2 (09:24→10:39)
[2020-04-03] MEDS ORDERED: FENTANYL CITRATE INJ/PF 100 MCG/2 ML AMPUL ONE (10:39)
[2020-04-03] MEDS: EPINEPHRINE INJ/PF 1 MG/1 ML AMPULE ONE ×2 (10:53)
[2020-04-03] MEDS: LIDOCAINE 1%/PHENYLEPHRINE 1.5% 1 ML VIAL ONE ×2 (10:53)
[2020-04-03] MEDS: CHONDR SU A NA/HYALUR INTRAOC KIT (SURGICARE) ONE ×2 (10:53)
[2020-04-03] MEDS: PREDNISOLONE ACETATE 1% OPH SUSP 5 ML OD PRN ×2 (11:07)
[2020-04-03] MEDS: DORZOLAMIDE HCL 2%/TIMOLOL MALEAT 0.5% OPH SOLN 10 ML OD PRN ×2 (11:07)
--- NOTE | 2020-04-03 13:39 | Operative Report ---
Operative Report-[facility] Operative Report: DATE OF SURGERY: 04/03/2020 PREOPERATIVE DIAGNOSIS: Cataract, right eye POSTOPERATIVE DIAGNOSIS: Cataract, right eye OPERATION: Cataract extraction with insertion of an IOL of the right eye. Intraocular Lens Model: [20.5 SN 60 WF] For difficulty seeing the television SURGEON: Reyes Gloria MD ANESTHESIA: Topical PROCEDURE: After obtaining appropriate consent, the patient's right eye was prepped and draped in a sterile fashion as well as the surgeon in the sterile manner and cataract surgery was started. First a paracentesis blade was used to make a side-port incision. Viscoelastic was used to inflate the anterior chamber. Next a 2.4 mm incision was made with a 2.4 mm blade, clear corneal temporarily. A continuous capsulorrhexis was made using a cystotome and Utrata forceps. Following this hydrodissection was carried out to make the jordy fully loose and mobile and it was rotated. Following this, a divide and conquer technique was used to phacoemulsify the jordy. The remaining cortex was removed with an irrigation/aspiration. Provisc was instilled into the capsular bag to inflate the bag. The intraocular lens was placed. The remaining viscoelastic material was removed with irrigation/aspiration. Following this, the incision was found to be watertight. Besivance and Cosopt was instilled into the eye and a protective shield was placed over the eye. The patient was reurned to the postoperative recovery in a stable condition.
== END 2020-04-03 11:45 | disposition home or self-care (01) ==
LOC: SC 08:02
PROVIDERS: ATTEND Internal Medicine
DX: H25.11 Age-related nuclear cataract, right eye (principal); E11.36 Type 2 diabetes mellitus with diabetic cataract; E11.3293 Type 2 diabetes mellitus with mild nonproliferative diabetic retinopathy without macular edema, bilateral; Z79.84 Long term (current) use of oral hypoglycemic drugs; Z87.891 Personal history of nicotine dependence; I25.10 Atherosclerotic heart disease of native coronary artery without angina pectoris; I50.9 Heart failure, unspecified; K21.9 Gastro-esophageal reflux disease without esophagitis; M17.0 Bilateral primary osteoarthritis of knee
CPT/HCPCS: 66984; 82962; J2250; J3490 ×2; A9270; J0171; J3010; V2632

== ENCOUNTER → 2020-04-16 | Outpatient (CLI) | payer MEDICARE, OTHER ==
[2020-04-16 12:03] LABS: HEMATOCRIT 28.4 % (37.9-51.0); HEMOGLOBIN 10.1 g/dL (13.5-17.0); MEAN CORPUSCULAR HEMOGLOBIN 31.2 pg (27.0-33.4); MEAN CORPUSCULAR HGB CONC 35.4 g/dL (32.0-36.0); MEAN CORPUSCULAR VOLUME 88 fl (80-97); PLATELET COUNT 177 10^3/uL (150-450); RED BLOOD COUNT 3.22 10^6/uL (4.35-5.55); RED CELL DISTRIBUTION WIDTH 13.5 % (11.5-14.0); WHITE BLOOD COUNT 5.4 10^3/uL (4.0-10.5)
[2020-04-16 12:24] LABS: ALBUMIN 3.8 g/dL (3.5-5.0); ALKALINE PHOSPHATASE 79 U/L (38-126); ANION GAP 8 (5-19); ASPARTATE AMINO TRANSFERASE 28 U/L (17-59); BILIRUBIN,DIRECT 0.2 mg/dL (0.0-0.4); BILIRUBIN,TOTAL 0.7 mg/dL (0.2-1.3); BLOOD UREA NITROGEN 16 mg/dL (7-20); CARBON DIOXIDE 28 mmol/L (22-30); CHLORIDE 100 mmol/L (98-107); GLUCOSE 162 mg/dL (75-110); POTASSIUM 4.2 mmol/L (3.6-5.0); TOTAL PROTEIN 6.7 g/dL (6.3-8.2)
[2020-04-16 13:35] LABS: FOLATE > 20.00 ng/mL (>2.76)
[2020-04-16 13:36] LABS: ALBUMIN 3.8 g/dL (3.5-5.0); ALKALINE PHOSPHATASE 79 U/L (38-126); ANION GAP 8 (5-19); ASPARTATE AMINO TRANSFERASE 28 U/L (17-59); BILIRUBIN,DIRECT 0.2 mg/dL (0.0-0.4); BILIRUBIN,TOTAL 0.7 mg/dL (0.2-1.3); BLOOD UREA NITROGEN 16 mg/dL (7-20); CARBON DIOXIDE 28 mmol/L (22-30); CHLORIDE 100 mmol/L (98-107); CHOLESTEROL 99.99 mg/dL (0-200); DIRECT LDL 34 mg/dL (<100); GLUCOSE 162 mg/dL (75-110); POTASSIUM 4.2 mmol/L (3.6-5.0); TOTAL PROTEIN 6.7 g/dL (6.3-8.2); TRIGLYCERIDES 94 mg/dL (<150); VLDL CHOLESTEROL 18.8 mg/dL (10-31)
[2020-04-17 11:37] LABS: CREATININE URINE 159.9 mg/dL (Not Estab.)
== END ==
LOC: OD 10:36
PROVIDERS: ATTEND Surgery
DX: E11.65 Type 2 diabetes mellitus with hyperglycemia (principal); E11.59 Type 2 diabetes mellitus with other circulatory complications; E78.2 Mixed hyperlipidemia; E66.9 Obesity, unspecified; I20.8 Other forms of angina pectoris; G89.29 Other chronic pain; M54.16 Radiculopathy, lumbar region; E55.9 Vitamin D deficiency, unspecified; D52.0 Dietary folate deficiency anemia; K91.2 Postsurgical malabsorption, not elsewhere classified; Z98.84 Bariatric surgery status; Z95.1 Presence of aortocoronary bypass graft; Z79.4 Long term (current) use of insulin
CPT/HCPCS: 36415; 80053; 80061; 82043; 82306; 82570; 82607; 82728; 82746; 83036; 84425; 85027; 87070